=== PATIENT | female | born 1965 | race Caucasian/White ===

== ENCOUNTER 2019-04-21 22:03 | Inpatient (IN) | payer OTHER ==
[~2019-04-21] VITALS: Ht 162.6 cm; Wt 70.8 kg
--- OUTSIDE RECORDS SUMMARY | ~2019-04-21 | XMS | Encounter Summary ---
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 aches everywhere." Best pain is 7/10. Notes pain improvement with tizanidine, hydrocodone, gardening, being i n the sun and her heating pad. Pain is aggravated by taking the stairs, carrying things, etc. ROS: Please see scanned intake document. Detail reviewed face to face w/ patient. Relevant ROS detailed in HPI. Allergies: Patient has no known allergies. Current Medications: Current Outpatient Medications Medication Sig DULoxetine 60 mg oral capsule,delayed release(DR/EC) Take 60 mg by mouth two times isaías y. ELIDEL 1 % topical cream esomeprazole magnesium (NEXIUM ORAL) Take by mouth. gabapentin 300 mg oral capsule Take 300 mg by mouth once daily. HYDROcodone-acetaminophen 7.5-325 mg oral tablet levothyroxine 200 mcg oral tablet MELATONIN ORAL Take by mouth. tiZANidine 4 mg oral tablet VITAMIN D2 50,000 unit oral capsule No current facility-administered medications for this visit. Social History: Marzena reports that she has never smoked. She has never used smokeless tobacco. She report s that she drinks alcohol. Work History: [employer] part-time and "disabled." Medico-Legal: No pending litigation. Sleep History: Describes non-restorative sleep. "Very little and sporadic." Interrupted s leep d/t pain. Has never had a sleep study done. Current Exercise: Lunchtime walks. Past Medications and Treatments/ Response: NSAIDs- side effects Tramadol- no effect Duloxetine+ currently using 60mg BID Milnacipran- side effects TCA NA Pregabalin NA Gabapentin currently using 300mg 3x/d Muscle relaxants currently using tizanidine 5x/d Steroids NA Injections NA but did have unsuccessful ablation PT+/- Massage- too sensitive Manipulation NA contraindicated Acupuncture NA TENS unit+ Exercise+/- Pain psychology/ education NA Physical Examination: Vital Signs: BP 110/52 | Pulse 72 | Wt 61.2 kg (134 lb 14.7 oz) Pain Score: General: Pleasant, cooperative, no acute distress. Appropriate mood and affect. HEENT: No scleral icterus or conjunctival injection. No lacrimal or parotid enlargement. N o malar rashes. Mouth with moist mucous membranes. No oral ulcers. Neck: supple, no lymphadenopathy, FROM Lungs: clear to ausculation bilaterally CVS: S1S2, RRR, no murmurs, rubs or gallops Abd: normal BS, soft, NT, ND Extremities: No cyanosis, clubbing, or edema. No livedo reticularis, nail pitting, onychol ysis, periungual erythema, sclerodactyly, palmar telangiectasias or acrocyanosis. Skin: No rashes, nodules, ulcers. No apparent psoriasis. Neuro: Strength normal. Nl gait. Musculoskeletal: no synovitis; generalized tenderness; Pt tenderness to GTB Labs: Vitamin D 25-OH 10 ESR 7 Diagnosis: 1. Fibromyalgia 2. Non-restorative sleep 3. Vitamin D deficency 4. Greater trochanteric bursitis b/l Recommendations: 1. Ms. Romo suffers from moderate fibromyalgia pain and dysfunction. She was given verb al and written information on fibromyalgia at the time of evaluation. The web site www.myalg ia.com is also an excellent resource for patient information. The research to date is very c lear that fibromyalgia is a heterogeneous disorder that can only be consistently classified as mild, moderate or severe. Understanding that fibromyalgia with its array of symptoms is now thought to be the result of changes in the central nervous system a central sensitivit y syndrome. The chronic pain and associated symptoms may be the result of a final common pat hway seen in other processes such as irritable bowel syndrome, interstitial cystitis or endo metriosis. The theory is that with constant painful stimuli peripheral pain generators, th e neurotransmitters and other bioactive molecules in the brain and spinal cord change, resul ting in increased sensitivity to sensory input and less ability to tune out stimuli, it has been dubbed a central sensitivity syndrome . We impressed upon her that fibromyalgia i nterventions that are currently working may fail to work in the future, interventions that w ork for some do not work for people with fibromyalgia, and that there is no single treatment that will successfully alleviate her symptoms. Ideally, she needs a multimodal approach whi ch will include physical and occupational therapy, psychotherapy, and medications. Alternati ve therapies have worked for some, those most helpful have included acupuncture and massage. 2. Many patients with fibromyalgia additionally suffer from treatable sleep disorders. Imp roving sleep quality can greatly improve their overall pain burden. Given Ms. Romo long history of non-restorative sleep and daily issues with fatigue I recommend referral for phillip ysomnography evaluating for obstructive sleep apnea and well as upper airway resistance synd alfredo (UARS) which is common in patients with fibromyalgia and often goes undiagnosed. 3. Ms. Romo screening vitamin D level is insufficient. Low vitamin D level may contribu te to myalgia, arthralgia and fatigue. She needs vitamin D 50,000 units once a week for thr ee months and then please repeat the test for 25 (OH) vitamin D to see for any improvement. Patients often need once a month Vitamin D 50,000 units indefinitely to maintain normal lev els (more than 40 ng/ml). 4. Treating peripheral pain generators can positively impact the overall pain burden in pat ients with fibromyalgia. Ms. Romo has point tenderness to both greater trochanter bursa a nd symptoms consistent with bursitis. Therapeutic steroid injection could provide relief lo kathryn for 3 or more months. 5. For all patients living with fibromyalgia, counselling is strongly recommended, both for learning to manage life with chronic pain as well as her other stated life stressors. Cogn itive behavioral therapy (CBT) or acceptance and commitment therapy (ACT) have been shown to be effective for helping patients cope with chronic rosa and fatigue. 6. Other treatment modalities that could be considered include a trial of trigger point inj ections. Trigger point injections of the FM tender points with local anesthetic agents such as lidocaine or procaine are found to be useful in controlling the pain. Corticosteroids a re not used in trigger point injections. We suggest doing 3 to 4 TP injections at one sitti ng. Trigger point injections give symptomatic relief in pain, lasting for 3 weeks to 3 month s. 7. Fibromyalgia patients should participate in exercise program daily. We suggest starting slowly with stretching exercises. We also suggest yoga, water aerobics, deandre chi as good fo jaime of exercise. 8. I would be happy to see her again in the future if I can be of further assistance. [facility] Mailcode: [id number] [address] [id number] documented in t his encounter Plan of Treatment Not on filedocumented as of this encounter Visit Diagnoses + + | Diagnosis | + + | Fibromyalgia - Primary Mylagia and myositis, unspecified | + + | Non-restorative sleep Other sleep disturbances | + + | Vitamin D deficiency | + + | Trochanteric bursitis of both hips Enthesopathy of hip region | + + documented in this encounter
--- OUTSIDE RECORDS SUMMARY | ~2019-04-21 | XMS | Clinical Summary ---
Demographics + + + | Address | [address] | | | [place] [address] | + + + | Home Phone | | + + + | Preferred Language | Unknown | + + + | Marital Status | Single | + + + | Quaker Affiliation | Unknown | + + + | Race | White | + + + | Ethnic Group | or | + + + Author + + + | Author | [facility] | + + + | Organization | [facility] | + + + | Address | Unknown | + + + | Phone | Unavailable | + + + Support + + +---------+ + | Name | Relationship | Address | Phone | + + +---------+ + | Amari Ryan | ECON | Unknown | | + + +---------+ + Care Team Providers + +------+ + | Care Butcher Supervisor Name | Role | Phone | + +------+ + | No Pcp Per Patient | PCP | Unavailable | + +------+ + Source Comments [facility] is fully live on both [facility] and [facility] Allergies No Known Allergies Medications + + + +---------+------+------+-------+ | Medication | Sig | Dispensed | Refills | Star | End | Statu | | | | | | t | Date | s | | | | | | Date | | | + + + +---------+------+------+-------+ | | | | 0 | 05/0 | | Activ | | HYDROcodone-acetamin | | | | 4/20 | | e | | ophen 7.5-325 mg | | | | 19 | | | | oral tablet | | | | | | | + + + +---------+------+------+-------+ | gabapentin 300 mg | Take 300 mg by mouth | | 0 | 04/2 | | Activ | | oral capsule | once daily. | | | 6/20 | | e | | | | | | 19 | | | + + + +---------+------+------+-------+ | ELIDEL 1 % topical | | | 0 | 04/1 | | Activ | | cream | | | | 1/20 | | e | | | | | | 19 | | | + + + +---------+------+------+-------+ | tiZANidine 4 mg | | | 1 | 05/0 | | Activ | | oral tablet | | | | 3/20 | | e | | | | | | 19 | | | + + + +---------+------+------+-------+ | levothyroxine 200 | | | 99 | 05/0 | | Activ | | mcg oral tablet | | | | 3/20 | | e | | | | | | 19 | | | + + + +---------+------+------+-------+ | VITAMIN D2 50,000 | | | 2 | 05/0 | | Activ | | unit oral capsule | | | | 3/20 | | e | | | | | | 19 | | | + + + +---------+------+------+-------+ | esomeprazole | Take by mouth. | | 0 | | | Activ | | magnesium (NEXIUM | | | | | | e | | ORAL) | | | | | | | + + + +---------+------+------+-------+ | MELATONIN ORAL | Take by mouth. | | 0 | | | Activ | | | | | | | | e | + + + +---------+------+------+-------+ | DULoxetine 60 mg | Take 60 mg by mouth | | 0 | | | Activ | | oral capsule,delayed | two times daily. | | | | | e | | release(DR/EC) | | | | | | | + + + +---------+------+------+-------+ Active Problems Not on file Social History + +-------+ +--------+------+ | Tobacco [...] recent travel history available. | + + Last Filed Vital Signs + + + [...] | | + + + + + Plan of Treatment + + + + + | Health Maintenance | Due Date | Last Done | Comments | + + + + + | Influenza (Flu) | | 02/25/2011, 06/09/2009 | | | vaccination (#1) | 9 | | | + + + + + | Pneumococcal | Aged Out | | No longer eligible | | vaccination | | | based on patient's | | | | | age to complete this | | | | | topic | + + + + + Results Not on filefrom Last 3 Months Insurance + +--------+ +--------+ + +------+ | Payer | Benefi | Subscriber | Effect | Phone | Address | Type | | | t Plan | ID | ladonna | | | | | | / | | Dates | | | | | | Group | | | | | | + +--------+ +--------+ + +------+ | [employer] | [employer] | [phone] | | [phone] | [address] | PPO | | SHIELD | OUT OF | [phone] [address] | | | | STATE | | esent | | [place], | | | | | | | | [place] | | | | | | | | [phone] | | + +--------+ +--------+ + +------+ + +--------+ +--------+ + + | Guarantor Name | Accoun | Relation to | Date | Phone | Billing Address | | | t Type | Patient | of | | | | | | | | | | + +--------+ +--------+ + + | Marzena Romo | Person | Self [birth year] | [address] | | | al/[place] | | 1966 | [phone] | [place] | | | matias | | | [address] ([place]) | [phone] | + +--------+ +--------+ + +"
--- OUTSIDE RECORDS SUMMARY | ~2019-04-21 | XMS | Encounter Summary ---
Demographics + + + | Address | [address] | | | [place] [address] | + + + | Home Phone | | + + + | Preferred Language | Unknown | + + + | Marital Status | | + + + | Christian Affiliation | Unknown | + + + | Race | Unknown | + + + | Ethnic Group | Unknown | + + + Author + + + | Author | [facility] | | | and [place] | + + + | Organization | [facility] | | | and [place] | + + + | Address | Unknown | + + + | Phone | Unavailable | + + + Support + + +---------+ + | Name | Relationship | Address | Phone | + + +---------+ + | Amari Ryan | ECON | Unknown | | + + +---------+ + Care Team Providers + +------+ + | Care Stock Preparation Operator Name | Role | Phone | + +------+ + PCP | Unavailable | + +------+ + Encounter Details +--------+ + + + + | Date | Type | Department | Care Team | Description | +--------+ + + + + | 12/08/ | Hospital | [facility] | [place], | | | 2011 - | Encounter | [facility]ENTER | MD [address] | | | | | CLINICAL DECISION | [address] | | | 12/09/ | | [address] | [place] [address] | | | 2011 | | [place], [place] | [phone] | | | | | [address] | | | | | | [phone] | | | +--------+ + + + [...] + + documented as of this encounter Discharge Summaries Ag Abbasi MD - 12/20/2011 6:38 PM PDTFormatting of this note might be differe nt from the original. Discharge Summaries by Ag Abbasi MD at 12/20/111837 Author: Ag Abbasi MD Service: Hospitalist Author Type: Physician Filed: 12/20/111841 Date of Service: 12/20/111837 Status: Signed Hand Chain Maker: Ag Abbasi MD (Physician) The patient is a 46 y.o. female with significant past medical history of Thyroid disease, adrenal adenoma who presented with Chest pain Pt refers that her symptoms started yesterday night with chest pain, substernal , 03/21 , t hat appeared while she was sitting, radiated to both arms and jaw, accompained with flushing , but no SOB or sweating, nausea or vomiting, due to increase chest discomfort that did not resolved, she call the ambulance which provided ASA and Nitroglycerin SL with improvement of her pain, to the point that when she arrived to the hospital, [facility], she was esther n free. During hospitalization over there, her EKG was negative for acute ST changes , first set of cardiac enzymes negative, but second and third set came back mildly positive. Admitted to [facility] and patient had a cath done by Dr Yoo reported as: PROCEDURE Left heart catheterization, with left ventriculography, coronary angiography. INDICATIONS This is a 46-year-old female who presented to an [facility] with chest pain, EKG changes, and positive troponin, consistent with acute coronary syndrome. She subsequently transferred for further diagnostic evaluation. Alternatives were discussed with the patient. The risks, benefits, procedure alternatives were explained for cardiac catheterization and possible intervention. Informed consent had been signed. ENTRY METHOD Right femoral artery percutaneous. MEDICATIONS 1. Lidocaine local. 2. Versed 2 mg IV. 3. The patient was brought to the cardiac catheterization lab on a heparin drip that was discontinued. EQUIPMENT 1. A 6-Finnish arterial sheath. 2. A 5-Finnish pigtail catheter. 3. A 5-Finnish JL4 catheter. 4. A 5-Finnish 3DRC catheter. COMPLICATIONS None. DESCRIPTION OF PROCEDURE The right groin was prepped and draped in the usual fashion for a percutaneous approach. A 6-Finnish arterial sheath was placed in the right femoral artery without difficulty. A 5-Finnish pigtail catheter was then advanced to the ascending aorta under fluoroscopic guidance. Initial aortic pressures were obtained. This catheter was then advanced across the aortic valve under fluoroscopic guidance. Left ventricular pressures were obtained. A single-plane, 30-degree FROST ventriculogram was performed. Pullback pressures were obtained. This catheter was then exchanged for a 5-Finnish JL4 catheter. This catheter was then advanced to the left coronary ostium under fluoroscopic guidance. Selective coronary arteriography was performed in multiple views. This catheter was then exchanged for a 5-Finnish 3DRC catheter. This catheter was then advanced to the right coronary ostium under fluoroscopic guidance. Selective coronary arteriography was performed in multiple views. Catheter and sheaths were removed. Groin hemostasis was achieved. The patient tolerated the procedure without apparent complications and left the cardiac catheterization laboratory in stable condition. ESTIMATED BLOOD LOSS Less than 50 mL. RESULTS HEMODYNAMICS 1. The patient was in normal sinus rhythm during the study. 2. Aortic pressure 137/92, mean of 103. 3. Left ventricular systolic 141. 4. Left ventricular end-diastolic on direct inspection appeared to be in the range of 16 to 20. 5. No significant gradient on pullback from left ventricle. FLUOROSCOPY Fluoroscopy is negative for significant calcification of the cardiac structures. LEFT VENTRICULOGRAPHY 1. Left ventricle is normal in size. 2. There is no significant mitral regurgitation. 3. Left ventricular wall motion is normal. 4. Estimated ejection fraction at rest is 60% to 70%. There are no segmental wall motion abnormalities compatible with ischemia. CORONARY ANGIOGRAPHY 1. The left main is overall normal in size and shape without significant stenosis. 2. The LAD is initially a moderate-caliber vessel but becomes very small caliber distally. The LAD and diagonal branches are without evidence of flow limiting stenosis but again the vessel does become very small distally. 3. The circumflex is a moderate-caliber codominant vessel providing some left ventricular inferior branches. The circumflex/obtuse marginal branches and left ventricular inferior branches are without flow limiting stenosis. 4. The right coronary artery is of moderate caliber, codominant vessel some left ventricular inferior branches. The right coronary artery and left ventricular inferior branches are without flow limiting stenosis. ESTIMATED BLOOD LOSS Less than 50 mL. ASSESSMENT Chest pain and elevated troponin consistent with acute coronary syndrome. PLAN/DISCUSSION/RECOMMENDATIONS The patient could have had a component of coronary spasm. She also does have very small distal left, so she could have a component of microvascular angina as her symptoms were relieved with nitroglycerin. For now, we will change the beta pernell to diltiazem in the event that some of this was related to coronary spasms. She does have a history of anemia. For now I think the addition of an antiplatelet agent such as Ecotrin 81 mg daily is appropriate particularly in light of her anemia. Monitoring the CBC in the future for now. I believe the patient is appropriate for medical management. Overnight the patient wanted to leave AMA. I explained to her the possible risks of serious events including , but she still wanted to leave AMA. She signed the AMA papers and le ft. This is a note for the date: 12/10/11 documente d in this encounter Progress Notes Conversion Transaction, Provider Unknown - 12/10/2011 1:08 AM PDTFormatting of this note m ight be different from the original. Progress Notes by Suyapa Palma RN at 12/10/11 0108 Author: Suyapa Palma RN Service: (none) Author Type: Registered Nurse Filed: 12/10/11109 Date of Service: 12/10/11107 Status: Signed Hand Chain Maker: Suyapa Palma RN (Registered Nurse) Pt requested to leave hospital AMA. Dr Luong at bedside discussed risks to patient. Majo ent stated understanding and signed release. Belongings with patient. Patient leaving hospit al in private vehicle. Suyapa Palma RN 12/10/2011 1:10 AM Argelia Suero RPH - 12/09/2011 2:30 PM PDTFormatting of this note might be different from the chetna gitorrey. Progress Notes by Argelia Rivera RPH at 12/09/11 1430 Author: Argelia Rivera RPH Service: (none) Author Type: Pharmacist Filed: 12/09/111429 Date of Service: 12/09/111429 Status: Signed Hand Chain Maker: Argelia Rivera RPH (Pharmacist) Renal Dosing Monitoring: Marzenakelly Romo 46 y.o. female Pharmacy dosing for renal function per Dr. Day Medication(s): none at this time Plan per protocol: No height, weight or Scr at this time. Pharmacy will continue monitoring patient for appropriate dosing per renal function. 12/09/2011 2:28 PM Pharmacist: ARGELIA RIVERA Pharm D documente d in this encounter Plan of Treatment Not on filedocumented as of this encounter Procedures + +--------+ + + + | Procedure Name | Priori | Date/Time | Associated Diagnosis | Comments | | | ty | | | | + +--------+ + + + | CV CARDIAC PROCEDURE | Routin | 12/09/2011 | | Results for this | | | e | 4:30 PM | | procedure are in the | | | | PDT | | results section. | + +--------+ + + + documented in this encounter Results CV CARDIAC PROCEDURE (12/09/2011 4:30 PM PDT) + + | Specimen | + + | | + + + + + | Narrative | Performed At | + + + | | | | | | | PROCEDURE Left heart catheterization, with left ventriculography, | | | coronary angiography. INDICATIONS This is a 46-year-old female | | | who presented to an [facility] with chest pain, EKG changes, | | | and positive troponin, consistent with acute coronary syndrome. She | | | subsequently transferred for further diagnostic evaluation. | | | Alternatives were discussed with the patient. The risks, benefits, | | | procedure alternatives were explained for cardiac catheterization and | | | possible intervention. Informed consent had been signed. ENTRY | | | METHOD Right femoral artery percutaneous. MEDICATIONS 1. | | | Lidocaine local. 2. Versed 2 mg IV. 3. The patient was brought to | | | the cardiac catheterization lab on a heparin drip that was | | | discontinued. EQUIPMENT 1. A 6-Finnish arterial sheath. 2. A | | | 5-Finnish pigtail catheter. 3. A 5-Finnish JL4 catheter. 4. A 5-Finnish | | | 3DRC catheter. COMPLICATIONS None. DESCRIPTION OF PROCEDURE | | | The right groin was prepped and draped in the usual fashion for a | | | percutaneous approach. A 6-Finnish arterial sheath was placed in the | | | right femoral artery without difficulty. A 5-Finnish pigtail catheter | | | was then advanced to the ascending aorta under fluoroscopic guidance. | | | Initial aortic pressures were obtained. This catheter was then | | | advanced across the aortic valve under fluoroscopic guidance. Left | | | ventricular pressures were obtained. A single-plane, 30-degree FROST | | | ventriculogram was performed. Pullback pressures were obtained. This | | | catheter was then exchanged for a 5-Finnish JL4 catheter. This | | | catheter was then advanced to the left coronary ostium under | | | fluoroscopic guidance. Selective coronary arteriography was performed | | | in multiple views. This catheter was then exchanged for a 5-Finnish | | | 3DRC catheter. This catheter was then advanced to the right coronary | | | ostium under fluoroscopic guidance. Selective coronary arteriography | | | was performed in multiple views. Catheter and sheaths were removed. | | | Groin hemostasis was achieved. The patient tolerated the procedure | | | without apparent complications and left the cardiac catheterization | | | laboratory in stable condition. ESTIMATED BLOOD LOSS Less than 50 | | | mL. RESULTS HEMODYNAMICS 1. The patient was in normal sinus | | | rhythm during the study. 2. Aortic pressure 137/92, mean of 103. 3. | | | Left ventricular systolic 141. 4. Left ventricular end-diastolic on | | | direct inspection appeared to be in the range of 16 to 20. 5. No | | | significant gradient on pullback from left ventricle. FLUOROSCOPY | | | Fluoroscopy is negative for significant calcification of the cardiac | | | structures. LEFT VENTRICULOGRAPHY 1. Left ventricle is normal | | | in size. 2. There is no significant mitral regurgitation. 3. | | | Left ventricular wall motion is normal. 4. Estimated ejection | | | fraction at rest is 60% to 70%. There are no segmental wall | | | motion abnormalities compatible with ischemia. CORONARY | | | ANGIOGRAPHY 1. The left main is overall normal in size and shape | | | without significant stenosis. 2. The LAD is initially a | | | moderate-caliber vessel but becomes very small caliber | | | distally. The LAD and diagonal branches are without evidence of | | | flow limiting stenosis but again the vessel does become very small | | | distally. 3. The circumflex is a moderate-caliber codominant | | | vessel providing some left ventricular inferior branches. The | | | circumflex/obtuse marginal branches and left ventricular | | | inferior branches are without flow limiting stenosis. 4. The | | | right coronary artery is of moderate caliber, codominant vessel | | | some left ventricular inferior branches. The right coronary artery | | | and left ventricular inferior branches are without flow | | | limiting stenosis. ESTIMATED BLOOD LOSS Less than 50 mL. | | | ASSESSMENT Chest pain and elevated troponin consistent with acute | | | coronary syndrome. PLAN/DISCUSSION/RECOMMENDATIONS The patient | | | could have had a component of coronary spasm. She also does have very | | | small distal left, so she could have a component of microvascular | | | angina as her symptoms were relieved with nitroglycerin. For now, we | | | will change the beta pernell to diltiazem in the event that some of | | | this was related to coronary spasms. She does have a history of | | | anemia. For now I think the addition of an antiplatelet agent such as | | | Ecotrin 81 mg daily is appropriate particularly in light of her | | | anemia. Monitoring the CBC in the future for now. I believe the | | | patient is appropriate for medical management. Read by | | | CAREN YOO MD 12/09/2011 04:36 P | | + + + + + | Procedure Note | + + | Yemi Wilson Conversion - 02/02/2019 3:31 AM PDT | | | | PROCEDURE | | Left heart catheterization, with left ventriculography, coronary | | angiography. | | | | INDICATIONS | | This is a 46-year-old female who presented to an [facility] with | | chest pain, EKG changes, and positive troponin, consistent with acute | | coronary syndrome. She subsequently transferred for further diagnostic | | evaluation. Alternatives were discussed with the patient. The risks, | | benefits, procedure alternatives were explained for cardiac | | catheterization and possible intervention. Informed consent had been | | signed. | | | | ENTRY METHOD | | Right femoral artery percutaneous. | | | | MEDICATIONS | | 1. Lidocaine local. | | 2. Versed 2 mg IV. | | 3. The patient was brought to the cardiac catheterization lab on a heparin | | drip that was discontinued. | | | | EQUIPMENT | | 1. A 6-Finnish arterial sheath. | | 2. A 5-Finnish pigtail catheter. | | 3. A 5-Finnish JL4 catheter. | | 4. A 5-Finnish 3DRC catheter. | | | | COMPLICATIONS | | None. | | | | DESCRIPTION OF PROCEDURE | | The right groin was prepped and draped in the usual fashion for a | | percutaneous approach. A 6-Finnish arterial sheath was placed in the right | | femoral artery without difficulty. A 5-Finnish pigtail catheter was then | | advanced to the ascending aorta under fluoroscopic guidance. Initial | | aortic pressures were obtained. This catheter was then advanced across the | | aortic valve under fluoroscopic guidance. Left ventricular pressures were | | obtained. A single-plane, 30-degree FROST ventriculogram was performed. | | Pullback pressures were obtained. This catheter was then exchanged for a | | 5-Finnish JL4 catheter. This catheter was then advanced to the left | | coronary ostium under fluoroscopic guidance. Selective coronary | | arteriography was performed in multiple views. This catheter was then | | exchanged for a 5-Finnish 3DRC catheter. This catheter was then advanced to | | the right coronary ostium under fluoroscopic guidance. Selective coronary | | arteriography was performed in multiple views. Catheter and sheaths were | | removed. Groin hemostasis was achieved. The patient tolerated the | | procedure without apparent complications and left the cardiac | | catheterization laboratory in stable condition. | | | | ESTIMATED BLOOD LOSS | | Less than 50 mL. | | | | RESULTS | | HEMODYNAMICS | | 1. The patient was in normal sinus rhythm during the study. | | 2. Aortic pressure 137/92, mean of 103. | | 3. Left ventricular systolic 141. | | 4. Left ventricular end-diastolic on direct inspection appeared to be in | | the range of 16 to 20. | | 5. No significant gradient on pullback from left ventricle. | | | | FLUOROSCOPY | | Fluoroscopy is negative for significant calcification of the cardiac | | structures. | | | | LEFT VENTRICULOGRAPHY | | 1. Left ventricle is normal in size. | | 2. There is no significant mitral regurgitation. | | 3. Left ventricular wall motion is normal. | | 4. Estimated ejection fraction at rest is 60% to 70%. There are no | | segmental wall motion abnormalities compatible with ischemia. | | | | CORONARY ANGIOGRAPHY | | 1. The left main is overall normal in size and shape without significant | | stenosis. | | 2. The LAD is initially a moderate-caliber vessel but becomes very small | | caliber distally. The LAD and diagonal branches are without evidence | | of flow limiting stenosis but again the vessel does become very small | | distally. | | 3. The circumflex is a moderate-caliber codominant vessel providing some | | left ventricular inferior branches. The circumflex/obtuse marginal | | branches and left ventricular inferior branches are without flow | | limiting stenosis. | | 4. The right coronary artery is of moderate caliber, codominant vessel | | some left ventricular inferior branches. The right coronary artery and | | left ventricular inferior branches are without flow limiting | | stenosis. | | | | ESTIMATED BLOOD LOSS | | Less than 50 mL. | | | | ASSESSMENT | | Chest pain and elevated troponin consistent with acute coronary syndrome. | | | | PLAN/DISCUSSION/RECOMMENDATIONS | | The patient could have had a component of coronary spasm. She also does | | have very small distal left, so she could have a component of | | microvascular angina as her symptoms were relieved with nitroglycerin. For | | now, we will change the beta pernell to diltiazem in the event that some | | of this was related to coronary spasms. She does have a history of anemia. | | For now I think the addition of an antiplatelet agent such as Ecotrin 81 | | mg daily is appropriate particularly in light of her anemia. Monitoring | | the CBC in the future for now. I believe the patient is appropriate for | | medical management. | | | | | | | | | | Read by CAREN YOO MD 12/09/2011 04:36 P | | | | | + + documented in this encounter Visit Diagnoses Not on filedocumented in this encounter"
--- OUTSIDE RECORDS SUMMARY | ~2019-04-21 | XMS | Encounter Summary ---
Demographics + + + | Address | [address] | | | [place] [address] | + + + | Home Phone | | + + + | Preferred Language | Unknown | + + + | Marital Status | Single | + + + | Jainism Affiliation | Unknown | + + + | Race | White | + + + | Ethnic Group | or | + + + Author + + + | Organization | Unknown | + + + | Address | Unknown | + + + | Phone | Unavailable | + + + Support + + +---------+ + | Name | Relationship | Address | Phone | + + +---------+ + | Amari Ryan | ECON | Unknown | | + + +---------+ + Care Team Providers + +------+ + | Care Pottery Kiln Builder Name | Role | Phone | + +------+ + PCP | Unavailable | + +------+ + Encounter Details +--------+ + + + + | Date | Type | Department | Care Team | Description | +--------+ + + + + | 04/01/ | Office | | Note, Outpatient | Progress Note | | 2001 | Visit-Trans | | Clinic | | | | cribed | | | | +--------+ + + + [...] + + documented as of this encounter Progress Notes Interface, Wallpaper Printer In - 01/19/2006 1:02 AM PDTCLINIC DATE: 04/01/2002 [facility] SUBJECTIVE: Mrs. Romo is a 36-year-old woman who comes to clinic inquiring about bariatric procedure. She is 5 feet 4 inches tall and weighs 350 pounds which gives her a BMI of 61. She has been obese since she was 10 years old and went on her first diet at age 13. She has tried numerous diets which have produced small temporary weight losses. 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 She is hypothyroid. She is not aware that she has sleep apnea. PAST MEDICAL HISTORY: See HPI. PRIOR OPERATIONS: Hernia repair 1-1/2 years ago. MEDICATIONS: Fluoxetine 20 mg a day, this is a Paxil-like drug; metformin 500 mg twice a day; spironolactone 25 mg a day; and Levoxyl 0.125 mg a day. DRUG ALLERGIES: None. 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 This is mainly a sitting desk-work job with a little bit of walking. She does not drink or smoke. She has 1 child aged 10 and is a single mother. PHYSICAL EXAMINATION VITAL SIGNS: Her blood pressure is 132/80, pulse is 84 and regular, and she is afebrile. HEENT: Normal. NECK: Supple without adenopathy. LUNGS: Clear to auscultation. HEART: Normal sinus rhythm. No murmurs. EXTREMITIES: Edema 1+ to the mid valencia. Peripheral pulses are good. IMPRESSION: This 36-year-old woman is in the super obese range, has a comorbidity of diabetes, and is an excellent candidate for bariatric procedure to prevent future morbidity from obesity. I will attempt to get insurance authorization for her surgery. Nemesio Lake M.D. CD / HS [id number] / [id number] / [id number] / [id number] Tdocumented in this encounter Plan of Treatment Not on filedocumented as of this encounter Visit Diagnoses Not on filedocumented in this encounter"
--- OUTSIDE RECORDS SUMMARY | ~2019-04-21 | XMS | Encounter Summary ---
Demographics + + + | Address | [address] | | | [place] [address] | + + + | Home Phone | | + + + | Preferred Language | Unknown | + + + | Marital Status | Single | + + + | Judaism Affiliation | Unknown | + + + | Race | White | + + + | Ethnic Group | or | + + + Author + + + | Author | [facility] | + + + | Organization | [facility] | + + + | Address | Unknown | + + + | Phone | Unavailable | + + + Support + + +---------+ + | Name | Relationship | Address | Phone | + + +---------+ + | Amari Ryan | ECON | Unknown | | + + +---------+ + Care Team Providers + +------+ + | Care Licensed Home Inspector Name | Role | Phone | + +------+ + | No Pcp Per Patient | PCP | Unavailable | + +------+ + Encounter Details +--------+ + + + + | Date | Type | Department | Care Team | Description | +--------+ + + + + | 11/14/ | Ancillary | Registration [id number] | | | | 2006 | [address] | [address] | | | | [address] | [address] Mailcode: [id number] | | | | | | [place], [place] | | | | | | [address] | | | | | | [phone] | | | +--------+ + + + [...]
--- OUTSIDE RECORDS SUMMARY | ~2019-04-21 | XMS | Encounter Summary ---
Demographics + + + | Address | [address] | | | [place] [address] | + + + | Home Phone | | + + + | Preferred Language | Unknown | + + + | Marital Status | Single | + + + | Nondenominational Affiliation | Unknown | + + + | Race | White | + + + | Ethnic Group | or | + + + Author + + + | Author | [facility] | + + + | Organization | [facility] | + + + | Address | Unknown | + + + | Phone | Unavailable | + + + Support + + +---------+ + | Name | Relationship | Address | Phone | + + +---------+ + | Amari Ryan | ECON | Unknown | | + + +---------+ + Care Team Providers + +------+ + | Care Principal Clerk Name | Role | Phone | + [...] | | Therapy | | [place], | [address] | | | | | Fibromyalgia | Steph Claros, | [place] | | | | | Procedures | [address] | Mailcode: | | | | | | [address] | [facility] | | | | | OCCUPATIONAL | Valentina Figueroa | for Health | | | | | THERAPY | [facility] [place] | and Healing, | | | | | REFERRAL | [address] | [address], | | | | | | Phone: | [address] | | | | | | [phone] | [facility] [place] | | | | | | Fax: | [address] | | | | | | [phone] | Phone: | | | | | | | [phone] | | | | | | | Fax: | | | | | | | [phone] | + +--------+ + + + + [...] | | | | | Procedures | [address] | Mailcode: | | | | | PHYSICAL | Sylvester Sanchez | [facility] | | | | | THERAPY | Valentina Figueroa | for Health | | | | | REFERRAL | [place], [place] | and Healing, | | | | | | [address] | [address], | | | | | | Phone: | [address] | | | | | | [phone] | [place], [place] | | | | | | Fax: | [address] | | | | | | [phone] | Phone: | | | | | | | [phone] | | | | | | | Fax: | | | | | | | [phone] | + +--------+ + + + + [...] | | | | | | [place] [address] | Pavilion | | | | | | Phone: | [place], [place] | | | | | | [phone] | [address] | | | | | | Fax: | Phone: | | | | | | [phone] | [phone] | | | | | | | Fax: | | | | | | | [phone] | + +--------+ + + + + Encounter Details +--------+---------+ + + + | Date | Type | Department | Care Team | Description | +--------+---------+ + + + | 10/24/ | Office | Rheumatology at | Clinic, [facility] | Fibromyalgia | | 2019 | Visit | Physicians Nereyda | Fibromyalgia [address] | (Primary Dx); | | | | [address] | [address] | Non-restorative | | | | Valentina Figueroa Mailcode: | Road [place], [place] | sleep; Vitamin D | | | | [address] [facility]ician's | [address] | deficiency; | | | | [facility] [place], | | Trochanteric | | | | [place] [address] | | bursitis of both | | | | [phone] | | hips | +--------+---------+ + + [...] encounter Patient Instructions Patient Instructions Steph Gallo, [facility] SPRAYER - 10/24/2018 1:30 PM PDT 1. TENS [...] are, in fact, subjective... Website's: Www.myalgia.com Www.myalgiateam.com [email or web address] Program features 10 modules: Understanding Fibromyalgia Being Active Sleep Relaxation Time for You Setting Goals Pacing Yourself (Task Player Radha) Thinking Differently Communicating Fibro Fog Www.lumosity.com Brain games and brain training Coaching: [email or web address]://[email or web address].com/ On-line exercise program recommendations (Youtube): Warm up Exercise for Fibromyalgia [facility] for Fibromyalgia Restorative Chair Yoga for Chronic Pain Sleepy Santosha Fibromyalgia Pain Relief Stretching Program: Gentle but Effective physicaltherapyvideo 3 mins Qi Gong Exercise Workout Routine for Fibromyalgia Pain Relief - Qi Gong [employer]ong[employer] - Qi[employer]ong [employer] Qigong for Seniors - Sitting Version relaxedandalert Local support groups: [facility] Fibromyalgia,Chronic Pain, Chronic Fatigue Support Group Address: Meets At [facility], [address] [place] [address] Books: "Fibromyalgia: Woman's Tool Kit" by Donna Monique and Eduardo Darling. "Take Back Your Life: Find Hope And [place] From Fibromyalgia Symptoms And Pain" by Bambi Russellbonnerdale. "The FibroManual: A Complete Fibromyalgia Treatment Guide [...] explain the pain and other symptoms Source: [place] [employer], 2010 How is fibromyalgia [...] over activity of nerve cells involved in esther n transmission. These medicines may cause dizziness, [...] use of an opioid narcotic is needed. Ulhp-cah-jgibbqg medicines such as acetaminophen (Tylenol) or nonsteroidal [...] caused you r illness. Additional Information The [place] [employer] has compiled this list to give you a starting point fo r your own additional research. The ACR does not endorse or maintain these websites and is n ot responsible for any information or claims provided on them. It is always best to talk wit h your concert singer for more information and before making any decisions about your care. National [place] of Arthritis and Musculoskeletal and Skin Diseases National Fibromyalgia Association National Fibromyalgia and Chronic Pain Association National Fibromyalgia Partnership, Inc. The [place] Fibromyalgia Syndrome Association, Inc. Trochanteric Bursitis: Exercises [...] 4. Repeat 2 to 4 times. Double ymdw-xo-lxltd 1. Lie on your back with your [...] about "Trochanteric Bursitis: Exercises", log into your Ember account at [email or web address]. You can enter N503 in the "[employer] Library" search box. Not on Ember? Review the Ember section of your After Visit Summary for directions on ho w to sign up. Current as of: March 01, 2018 Content Version: 11.9 [id number] Spreaker. Care instructions adapted under license by [facility] [place]. If you have questions about a medical condition or this instr uction, always ask your healthcare professional. [employer]aker disclaims any stefanie anty or liability for your use of this information. documented in this encounter Progress Notes Steph Gallo FNP - 10/24/2018 1:30 PM PDTFormatting of this note might be differe nt from the original. . New Fibromyalgia Patient Consult: This patient was referred by: Anil James MD [facility] [address] [place] [address], . Your patient, Ms. Romo, a 52 y.o. female, was evaluated in the [facility] on October 23, 2018. This evaluation consisted of a fibromyalgia focused history and limited ph ysical examination, psychosocial assessment with focus on education and counselling regardin g diagnosis, treatment options, self-care measures, expectations and prognosis. Travelling from [place], [place] History of Current Problem: Ms. Romo [...] s that she drinks alcohol. Work History: [employer] part-time and "disabled." Medico-Legal: No pending [...] of further assistance. [facility]EN [facility]ATOLOG[facility] Mailcode: Op09 [address] [address] documented in t his encounter Plan of [...]
--- OUTSIDE RECORDS SUMMARY | ~2019-04-21 | XMS | Encounter Summary ---
Demographics + + + | Address | [address] | | | [place] [address] | + + + | Home Phone | | + + + | Preferred Language | Unknown | + + + | Marital Status | | + + + | Catholic Affiliation | Unknown | + + + | Race | Unknown | + + + | Ethnic Group | Unknown | + + + Author + + + | Author | [facility] | | | and [place] | + + + | Organization | [facility] | | | and Freddieana | [...] Team Providers + +------+ + | Care Circus Agent Name | Role | Phone | + +------+ + PCP | Unavailable | + +------+ + Encounter Details +--------+ + + + + | Date | Type | Department | Care Team | Description | +--------+ + + + + | 12/08/ | Hospital | [facility] | Shay, | | | 2011 - | Encounter | MEDICAL CENTER | MD Daryl [address] | | | | | CLINICAL DECISION | [address] | | | 12/09/ | | [address] | [place] [address] | | | 2011 | | [place], [place] | [phone] | | | | | [address] | | | | | | [phone] | | | +--------+ + + + [...] 12/20/111841 Date of Service: 12/20/111837 Status: Signed Distillery Worker General: Ag Abbasi MD (Physician) The patient is [...] that when she arrived to the hospital, [facility], she was esther n free. During hospitalization over there, her EKG was negative for acute ST changes , first set of cardiac enzymes negative, but second and third set came back mildly positive. Admitted to [facility] and patient had a cath done by Dr Yoo reported as: PROCEDURE Left heart catheterization, with left ventriculography, coronary angiography. INDICATIONS This is a 46-year-old female who presented to an [facility] hospital with chest pain, EKG changes, and [...] drip that was discontinued. EQUIPMENT 1. A 6-Irish arterial sheath. 2. A 5-Irish pigtail catheter. 3. A 5-Irish JL4 catheter. 4. A 5-Irish 3DRC catheter. COMPLICATIONS None. DESCRIPTION OF PROCEDURE The right groin was prepped and draped in the usual fashion for a percutaneous approach. A 6-Irish arterial sheath was placed in the right femoral artery without difficulty. A 5-Irish pigtail catheter was then advanced to the ascending aorta under fluoroscopic guidance. Initial aortic pressures were obtained. This catheter was then advanced across the aortic valve under fluoroscopic guidance. Left ventricular pressures were obtained. A single-plane, 30-degree FROST ventriculogram was performed. Pullback pressures were obtained. This catheter was then exchanged for a 5-Irish JL4 catheter. This catheter was then advanced to the left coronary ostium under fluoroscopic guidance. Selective coronary arteriography was performed in multiple views. This catheter was then exchanged for a 5-Irish 3DRC catheter. This catheter was then advanced [...] 12/10/11109 Date of Service: 12/10/11107 Status: Signed Distillery Worker General: Suyapa Palma RN (Registered Nurse) Pt requested [...] 12/09/111429 Date of Service: 12/09/111429 Status: Signed Distillery Worker General: Argelia Rivera RPH (Pharmacist) Renal Dosing Monitoring: Marzenakelly Room 46 y.o. female Pharmacy dosing for renal [...] | | | who presented to an [facility] hospital with chest pain, EKG changes, | [...] | | | discontinued. EQUIPMENT 1. A 6-Irish arterial sheath. 2. A | | | 5-Irish pigtail catheter. 3. A 5-Irish JL4 catheter. 4. A 5-Irish | | | 3DRC catheter. COMPLICATIONS None. DESCRIPTION OF PROCEDURE | | | The right groin was prepped and draped in the usual fashion for a | | | percutaneous approach. A 6-Irish arterial sheath was placed in the | | | right femoral artery without difficulty. A 5-Irish pigtail catheter | | | was then [...] | catheter was then exchanged for a 5-Irish JL4 catheter. This | | | catheter was then advanced to the left coronary ostium under | | | fluoroscopic guidance. Selective coronary arteriography was performed | | | in multiple views. This catheter was then exchanged for a 5-Irish | | | 3DRC catheter. This catheter [...] a 46-year-old female who presented [facility] with | | chest pain, EKG changes, [...] | | EQUIPMENT | | 1. A 6-Irish arterial sheath. | | 2. A 5-Irish pigtail catheter. | | 3. A 5-Irish JL4 catheter. | | 4. A 5-Irish 3DRC catheter. | | | | COMPLICATIONS | | None. | | | | DESCRIPTION OF PROCEDURE | | The right groin was prepped and draped in the usual fashion for a | | percutaneous approach. A 6-Irish arterial sheath was placed in the right | | femoral artery without difficulty. A 5-Irish pigtail catheter was then | | advanced [...] was then exchanged for a | | 5-Irish JL4 catheter. This catheter was then advanced to the left | | coronary ostium under fluoroscopic guidance. Selective coronary | | arteriography was performed in multiple views. This catheter was then | | exchanged for a 5-Irish 3DRC catheter. This catheter was then advanced [...]
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
--- OUTSIDE RECORDS SUMMARY | ~2019-04-21 | XMS | Encounter Summary ---
Demographics + + + | Address | [address] | | | [place] [address] | + + + | Home Phone | | + + + | Preferred Language | Unknown | + + + | Marital Status | | + + + | Quaker Affiliation | Unknown | + + + | Race | Unknown | + + + | Ethnic Group | Unknown | + + + Author + + + | Author | [facility] | | | and [place] | + + + | Organization | [facility] | | | and [place] | [...] Team Providers + +------+ + | Care Manager Global Communications Name | Role | Phone | + +------+ + PCP | Unavailable | + +------+ + Encounter Details +--------+ + + + + | Date | Type | Department | Care Team | Description | +--------+ + + + + | 12/25/ | Hospital | [facility] | | | | 2000 | Encounter | MED CTR XRAY [address] | | | | | | [address] [place] | | | | | | [place] [address] | | | | | | [phone] | | | +--------+ + + + [...]
--- OUTSIDE RECORDS SUMMARY | ~2019-04-21 | XMS | Clinical Summary ---
Demographics + + + | Address | [address] | | | [place] [address] | + + + | Home Phone | | + + + | Preferred Language | Unknown | + + + | Marital Status | Single | + + + | Scientology Affiliation | Unknown | + + + | Race | Unknown | + + + | Ethnic Group | Unknown | + + + Author + + + | Author | [facility] (Historical as of | | | 01-26-19) | + + + | Organization | [facility] (Historical as of | | | 01-26-19) | + + + | Address | Unknown | + + + | Phone | Unavailable | + + + Support + + +---------+ + | Name | Relationship | Address | Phone | + + +---------+ + | Contact,No | ECON | Unknown | | + + +---------+ + Care Team Providers + +------+ + | Care Bone Drier Name | Role | Phone | + +------+ + | Dr. Gianni | PP | Unavailable | + +------+ + Allergies No Known Allergies Current Medications + + +-------+---------+------+------+-------+ | Prescription | Sig. | Disp. | Refills | Star | End | Statu | | | | | | t | Date | s | | | | | | Date | | | + + +-------+---------+------+------+-------+ | | Take 1 tablet by | | | | | Activ | | hydrocodone-acetamin | mouth 2 (two) times | | | | | e | | ophen (LORTAB) | daily as needed. | | | | | | | 7.5-500 MG per | | | | | | | | tablet | | | | | | | + + +-------+---------+------+------+-------+ | lansoprazole | Take 30 mg by mouth | | | | | Activ | | (PREVACID) 30 MG | every morning. | | | | | e | | capsule | | | | | | | + + +-------+---------+------+------+-------+ | methocarbamol | Take 750 mg by mouth | | | | | Activ | | (ROBAXIN) 750 MG | 4 (four) times | | | | | e | | tablet | daily. | | | | | | + + +-------+---------+------+------+-------+ | levothyroxine | Take 175 mcg by | | | | | Activ | | (SYNTHROID, | mouth daily. | | | | | e | | LEVOTHROID) 175 MCG | | | | | | | | tablet | | | | | | | + + +-------+---------+------+------+-------+ | Cholecalciferol | Take 1,000 Units by | | | | | Activ | | (VITAMIN D) 1000 | mouth 3 (three) | | | | | e | | UNITS capsule | times a week. | | | | | | + + +-------+---------+------+------+-------+ Active Problems + + + | Problem | Noted Date | + + + | Chest pain, unspecified | 12/09/2011 | + + + | Troponin level elevated | 12/09/2011 | + + + | Unspecified hypothyroidism | 12/09/2011 | + + + Family History + + +------+ + | Medical History | Relation | Name | Comments | + + +------+ + | Diabetes type II | Father | | | + + +------+ + | Rheum arthritis | Father | | | + + +------+ + | Rheum arthritis | Mother | | | + + +------+ + | Heart disease | Paternal | | | | | Grandfath | | | | | er | | | + + +------+ + | Heart disease | Paternal | | | | | Grandmoth | | | | | er | | | + + +------+ + | Mult sclerosis | Sister | | | + + +------+ + | Rheum arthritis | Sister | | | + + +------+ + + +------+--------+ + | Relation | Name | Status | Comments | + +------+--------+ + | Father | | | | + +------+--------+ + | Mother | | | | + +------+--------+ + | Paternal Grandfather | | | | + +------+--------+ + | Paternal Grandmother | | | | + +------+--------+ + | Sister | | | | + +------+--------+ + Social History + +-------+ +--------+------+ | Tobacco Use | Types | Packs/Day | Years | Date | | | | | Used | | + +-------+ +--------+------+ | Never Smoker | | | | | + +-------+ +--------+------+ + + +---------+ + | Alcohol Use | Drinks/We | oz/Week | Comments | | | ek | | | + + +---------+ + | Yes | 2 Cans | 1.2 | 2 beers a week | | | of beer | | | + + +---------+ + + + + | Sex Assigned at | Date Recorded | | | | + + + | Not on file | | + + + Last Filed Vital Signs + + + + | Vital Sign | Reading | Time Taken | + + + + | Blood Pressure | 152/61 | 12/09/2011 11:45 PM PDT | + + + + | Pulse | 73 | 12/09/2011 11:45 PM PDT | + + + + | Temperature | 36.7 C (98 F) | 12/09/2011 11:45 PM PDT | + + + + | Respiratory Rate | 18 | 12/09/2011 11:45 PM PDT | + + + + | Oxygen Saturation | 100% | 12/09/2011 11:45 PM PDT | + + + + | Inhaled Oxygen | - | - | | Concentration | | | + + + + | Weight | 57.8 kg (127 lb 6.8 | 12/09/2011 2:24 PM PDT | | | oz) | | + + + + | Height | 165.1 cm (5' 5") | 12/09/2011 2:24 PM PDT | + + + + | Body Mass Index | 21.2 | 12/09/2011 2:24 PM PDT | + + + + Plan of Treatment Not on file Results Not on filefrom Last 3 Months Insurance +---------+--------+ +------+-------+ + | Payer | Benefi | Subscriber | Type | Phone | Address | | | t Plan | ID | | | | | | / | | | | | | | Group | | | | | +---------+--------+ +------+-------+ + | PREMERA | PREMER | [id number] | | | [address] [address] | | | A BLUE | [address] | | | [place] | | | CARD | | | | [phone] | +---------+--------+ +------+-------+ + + +--------+ +--------+ + + | Guarantor Name | Accoun | Relation to | Date | Phone | Billing Address | | | t Type | Patient | of | | | | | | | | | | + +--------+ +--------+ + + | TERESA ROMO | Person | Self [birth year] Home: | [address] | | | al/Fam | | 1966 | [phone] | [place] | | | matias | | | [phone] | [phone] | + +--------+ +--------+ + +
--- OUTSIDE RECORDS SUMMARY | ~2019-04-21 | XMS | Encounter Summary ---
Demographics + + + | Address | [address] | | | [place] [address] | + + + | Home Phone | | + + + | Preferred Language | Unknown | + + + | Marital Status | Single | + + + | Episcopal Affiliation | Unknown | + + + | Race | White | + + + | Ethnic Group | or | + + + Author + + + | Author | [facility] | + + + | Organization | [facility] | + + + | Address | Unknown | + + + | Phone | Unavailable | + + + Support + + +---------+ + | Name | Relationship | Address | Phone | + + +---------+ + | Amari Ryan | ECON | Unknown | | + + +---------+ + Care Team Providers + +------+ + | Care Nurse Epidemiologist Name | Role | Phone | + +------+ + PCP | Unavailable | + +------+ + Reason for Visit +--------+ + | Reason | Comments | +--------+ + | Other | care everywhere query | +--------+ + Encounter Details +--------+ + + + + | Date | Type | Department | Care Team | Description | +--------+ + + + + | 08/02/ | Abstract | Rheumatology at | Clinic, | Other (care | | 2019 | | [facility] [place] | Rheumatology | everywhere query ) | | | | [address] | | | | | | [place] Mailcode: | | | | | | [address] [facility] | | | | | | [place], [address] | | | | | | [place], [place] | | | | | | [address] | | | | | | [phone] | | | +--------+ + + + [...]
--- OUTSIDE RECORDS SUMMARY | ~2019-04-21 | XMS | Encounter Summary ---
Demographics + + + | Address | [address] | | | [place] [address] | + + + | Home Phone | | + + + | Preferred Language | Unknown | + + + | Marital Status | Single | + + + | Samaritan Affiliation | Unknown | + + + [...] Team Providers + +------+ + | Care Chicken Cutter Name | Role | Phone | + +------+ + | No Pcp Per Patient | PCP | Unavailable | + +------+ + Encounter Details +--------+--------+ + + + | Date | Type | Department | Care Team | Description | +--------+--------+ + + + | 05/15/ | Travel | | | | | 2019 | | | | | +--------+--------+ + + + Social History + +-------+ [...]
--- OUTSIDE RECORDS SUMMARY | ~2019-04-21 | XMS | Encounter Summary ---
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 [place] M.D. CD / HS [id number] / [id number] / [id number] / [id number] Tdocumented in this encounter Plan of Treatment Not on filedocumented as of this encounter Visit Diagnoses Not on filedocumented in this encounter"
--- OUTSIDE RECORDS SUMMARY | ~2019-04-21 | XMS | Encounter Summary ---
Demographics + + + | Address | [address] | | | [place] [address] | + + + | Home Phone | | + + + | Preferred Language | Unknown | + + + | Marital Status | Single | + + + | Samaritan Affiliation | Unknown | + + + | Race | White | + + + | Ethnic Group | or | + + + Author + + + | Author | [facility] | + + + | Organization | [facility] | + + + | Address | Unknown | + + + | Phone | Unavailable | + + + Support + + +---------+ + | Name | Relationship | Address | Phone | + + +---------+ + | Amari Ryan | ECON | Unknown | | + + +---------+ + Care Team Providers + +------+ + | Care Paper Box Maker Name | Role | Phone | + [...] [id number] | | | | | | [facility] | | | | | | [place], [place] | | | | | | [address] | | | | | | [phone] | | | +--------+ + + + [...]
--- OUTSIDE RECORDS SUMMARY | ~2019-04-21 | XMS | Clinical Summary ---
Demographics + + + | Address | [address] | | | [place] [address] | + + + | Home Phone | | + + + | Preferred Language | Unknown | + + + | Marital Status | | + + + | Taoism Affiliation | Unknown | + + + | Race | Unknown | + + + | Ethnic Group | Unknown | + + + Author + + + | Author | [facility] | | | and [place] | + + + | Organization | [facility] | | | and [place] | [...] Team Providers + +------+ + | Care Towel Rolling Machine Operator Name | Role | Phone | + +------+ + | Anil Olivo MD | PCP | | + +------+ + Allergies Not on File Medications Not on file Active Problems Not on file Family History + + +------+ + | Medical History | Relation | Name | Comments | + + +------+ + | Diabetes, NIDDM | Father | | | + + [...] | | + + +------+ + | Multiple sclerosis | Sister | | | + [...] | + + Last Filed Vital Signs Not on file Plan of Treatment + + + + + | Health Maintenance | Due Date | Last Done | Comments | + + + + + | Vaccine: | | | | | Dtap/Tdap/Td (1 - | 3 | | | | Tdap) | | | | + + + + + | Cervical Cancer | | | | | Screening (Pap) | 4 | | | + + + + + | Vaccine: Zoster (1 | | | | | of 2) | 4 | | | + + + + + | Breast Cancer | | | | | Screening | 9 | | | + + + + + | Vaccine: Influenza | | | | | (#1) | 9 | | | + + + + + Results Not on filefrom Last 3 Months Advance Directives + + + + + | Type | Date Recorded | Patient | Explanation | | | | Lining Stuffer | | + + + + + | Power of | | | | | Electronics Engineering Technologist | | | | + + + + + | Advance | | | | | Directive | | | | + + + + +"
--- OUTSIDE RECORDS SUMMARY | ~2019-04-21 | XMS | Encounter Summary ---
Demographics + + + | Address | [address] | | | [place] [address] | + + + | Home Phone | | + + + | Preferred Language | Unknown | + + + | Marital Status | Single | + + + | Rastafari Affiliation | Unknown | + + + [...] Team Providers + +------+ + | Care Hogshead Opener Name | Role | Phone | + [...]
--- OUTSIDE RECORDS SUMMARY | ~2019-04-21 | XMS | Encounter Summary ---
Demographics + + + | Address | [address] | | | [place] [address] | + + + | Home Phone | | + + + | Preferred Language | Unknown | + + + | Marital Status | Single | + + + | Samaritan Affiliation | Unknown | + + + | Race | White | + + + | Ethnic Group | or | + + + Author + + + | Author | [facility] | + + + | Organization | [facility] | + + + | Address | Unknown | + + + | Phone | Unavailable | + + + Support + + +---------+ + | Name | Relationship | Address | Phone | + + +---------+ + | Amari Ryan | ECON | Unknown | | + + +---------+ + Care Team Providers + +------+ + | Care Systems Auditor Name | Role | Phone | + [...] Floor | | | | | | [place], [place] | | | | | | [address] | | | | | | [phone] | | | +--------+ + + + [...]
--- OUTSIDE RECORDS SUMMARY | ~2019-04-21 | XMS | Encounter Summary ---
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 Nemesio Lake M.D. CD / HS [id number] / [id number] / [id number] / [id number] Tdocumented in this encounter Plan of Treatment Not on filedocumented as of this encounter Visit Diagnoses Not on filedocumented in this encounter"
--- OUTSIDE RECORDS SUMMARY | ~2019-04-21 | XMS | Clinical Summary ---
Demographics + + + | Address | [address] | | | [place] [address] | + + + | Home Phone | | + + + | Preferred Language | Unknown | + + + | Marital Status | | + + + | Muslim Affiliation | Unknown | + + + | Race | Unknown | + + + | Ethnic Group | Unknown | + + + Author + + + | Author | [facility] | | | and Freddieana | + + + | Organization | [facility] | | | and Freddieana [...] Team Providers + +------+ + | Care Associate Professor Of Law Name | Role | Phone | + [...] Patient | Explanation | | | | Cashier Or Checker Stock Clerk | | + + + + + | Power of | | | | | Cancer Genetics Assistant | | | | + + + + + | Advance | | | | | Directive | | | | + + + + +"
--- OUTSIDE RECORDS SUMMARY | ~2019-04-21 | XMS | Encounter Summary ---
Demographics + + + | Address | [address] | | | [place] [address] | + + + | Home Phone | | + + + | Preferred Language | Unknown | + + + | Marital Status | Single | + + + | Worship Affiliation | Unknown | + + + [...] Providers + +------+ + | Care Manager Purchasing Name | Role | Phone | + [...] [id number] | | | | | | [facility] | | | | | | [place], [place] | | | | | | [address] | | | | | | [phone] | | | +--------+ + + + [...]
--- OUTSIDE RECORDS SUMMARY | ~2019-04-21 | XMS | Encounter Summary ---
Demographics + + + | Address | [address] | | | [place] [address] | + + + | Home Phone | | + + + | Preferred Language | Unknown | + + + | Marital Status | Single | + + + | Restorationist Affiliation | Unknown | + + + | Race | White | + + + | Ethnic Group | or | + + + Author + + + | Author | [facility] | + + + | Organization | [facility] | + + + | Address | Unknown | + + + | Phone | Unavailable | + + + Support + + +---------+ + | Name | Relationship | Address | Phone | + + +---------+ + | Amari Ryan | ECON | Unknown | | + + +---------+ + Care Team Providers + +------+ + | Care Bottle Washer Machine Name | Role | Phone | + +------+ + | No Pcp Per Patient | PCP | Unavailable | + +------+ + Reason for Visit Occupational Therapy (Routine) + +--------+ + + + + | Status | Reason | Specialty | Diagnoses / | Referred By | Referred To | | | | | Procedures | Contact | Contact | + +--------+ + + + + | Authorized | | Occupational | Diagnoses | | [facility] | | | | Therapy | | [place], | [address] | | | | | Fibromyalgia | Steph Claros, | [place] | | | | | Procedures | SEED CORN PRODUCTION MANAGER [address] | Mailcode: | | | | | | [address] | [facility] | | | | | OCCUPATIONAL | Valentina Figueroa | for Health | | | | | THERAPY | [facility] [place] | and Healing, | | | | | REFERRAL | [address] | Building [address], | | | | | | Phone: | [address] Floor | | | | | | [phone] | [facility] [place] | | | | | | Fax: | [address] | | | | | | [phone] | Phone: | | | | | | | [phone] | | | | | | | Fax: | | | | | | | [phone] | + +--------+ + + + + Encounter Details +--------+---------+ + + + | Date | Type | Department | Care Team | Description | +--------+---------+ + + + | 10/24/ | Office | [facility] Occupational | Josue Welsh, | Fibromyalgia | | 2019 | Visit | Therapy Services at | OT [address] | (Primary Dx) | | | | [place] [address] | | | | | [address] | [place], [place] | | | | | Rd Mailcode: OP19 | [address] | | | | | [facility] | [phone] | | | | | [place], [place] | | | | | | [address] | | | | | | [phone] | | | +--------+---------+ + + + [...] this encounter Patient Instructions Patient Instructions Josue Welsh OT - 10/24/2018 2:30 PM PDTPurse lipped [...] meditation to help you fall asleep fast https://www.DidLogube.com/watch?v=3uDNCNbGhkY Sleep Hypnosis for Bedtime Total Relaxation https://www.DidLogube.com/watch?v=72CbJ1f4u05 Calming An Overactive Mind https://www.DidLogube.com/watch?v=uuzJffTliSc Sleep Hypnosis ~ Your Garden of Positive Affirmations https://www.DidLogube.com/watch?v=sGDUogJmrLA The following have interactive communities for support: TakeCare https://www.Remedy Partners Insight Timer https://insighttimer.Intivix Self CV-4 Technique (Tennis Ball) The Device: [...] different f rom the original. Insurance: Payor: [place] [employer] BLUE SHIELD / Plan: 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 Marzena was enc ouraged to contact us in the event that she experiences further functional decline. Long-Term Goals, as discussed with Marzena Romo, due end of session: Patient will demonstrate understanding of energy conservation and pacing strategies and how to implement into daily routine. (Goal met 3/15/19). Patient will demonstrate understanding of work, leisure, [...] (detailed assessments) Complexity: OT Eval Moderate complexity [70699] Marzena's knowledge of disease process: Good . Marzena requires services that can be safely and effectively performed only by a qualified therapist to address the aforementioned and highlighted problems and goals. Rehab Potential: Good, if Marzena carries through with home exercise program. Goals discussed and agreed upon with Marzena and family. Individual cultural and social needs addressed. Josue Welsh, OT [facility] OCCUPATIONAL THERAPY SERVICES AT [facility] Scheduled Appointment time: 2:30 PM Treatment [...] every 60 days): Procedure Codes: Therapeutic Activities [72801] and OT Eval Moderate complexity [69751] Treatment Plan Summary: 1x Minutes per session: [...] Number visits used: 1 Outcome Measure 10/24/2018 ASAF Primary ICD/Diagnosis code M79.7 Fibromyalgia Start this [...] | + +--------+ + + + | [place] THERAPEUTIC | Routin | 10/24/2018 | Fibromyalgia [...]
--- OUTSIDE RECORDS SUMMARY | ~2019-04-21 | XMS | Clinical Summary ---
Demographics + + + | Address | [address] | | | [place] [address] | + + + | Home Phone | | + + + | Preferred Language | Unknown | + + + | Marital Status | Single | + + + | Gnosticist Affiliation | Unknown | + + + | Race | Unknown | + + + | Ethnic Group | Unknown | + + + Author + + + | Author | [employer] [facility] (Historical as of | | | 01-26-19) | + + + | Organization | [facility] (Historical as of | | | 01-26-19) [...] Team Providers + +------+ + | Care Technical Architect Name | Role | Phone | + [...] +------+-------+ + | PREMERA | PREMER | [id number] | | | [address] [address] | | | A BLUE | [address] | | | [place] | | | CARD | | | | [address] | +---------+--------+ +------+-------+ + + +--------+ +--------+ + + | Guarantor Name | Accoun | Relation to | Date | Phone | Billing Address | | | t Type | Patient | of | | | | | | | | | | + +--------+ +--------+ + + | TERESA ROMO | Person | Self | [birth year] | Home: | [address] | | | al/Fam | | 1966 | [phone] | [place] | | | matias | | | [phone] | [address] | + +--------+ +--------+ + +
--- OUTSIDE RECORDS SUMMARY | ~2019-04-21 | XMS | Clinical Summary ---
Demographics + + + | Address | [address] | | | [place] [address] | + + + | Home Phone | | + + + | Preferred Language | Unknown | + + + | Marital Status | Single | + + + | Presybeterian Affiliation | Unknown | + + + [...] Phone | + + +---------+ + | Amrai Ryan | ECON | Unknown | | + + +---------+ + Care Team Providers + +------+ + | Care Community Health Nurse Name | Role | Phone | + +------+ + | No Pcp Per Patient | PCP | Unavailable | + +------+ + Source Comments THELMA is fully live on both [facility] Ambulatory and [facility] InPatient.[facility] Allergies No Known Allergies Medications + + [...] BLUE | BCBS | [phone] | | [phone] | [address] | PPO | | SHIELD | OUT OF | [phone] | [address] | | | | STATE | | esent | | [place], | | | | | | | | [place] | | | | | | | | [address] | | + +--------+ +--------+ + +------+ + +--------+ +--------+ + + | Guarantor Name | Accoun | Relation to | Date | Phone | Billing Address | | | t Type | Patient | of | | | | | | | | | | + +--------+ +--------+ + + | Marzena Romo | Person | Self | [birth year] | [address] | | | al/Zheng | | 1966 | [phone] | [place] | | | matias | | | 4 ([place]) | [phone] | + +--------+ +--------+ + +"
--- OUTSIDE RECORDS SUMMARY | ~2019-04-21 | XMS | Encounter Summary ---
Demographics + + + | Address | [address] | | | [place] [address] | + + + | Home Phone | | + + + | Preferred Language | Unknown | + + + | Marital Status | Single | + + + | Gnosticist Affiliation | Unknown | + + + | Race | White | + + + | Ethnic Group | or | + + + Author + + + | Author | [facility] | + + + | Organization | [facility] | + + + | Address | Unknown | + + + | Phone | Unavailable | + + + Support + + +---------+ + | Name | Relationship | Address | Phone | + + +---------+ + | Amari Ryan | ECON | Unknown | | + + +---------+ + Care Team Providers + +------+ + | Care Plant Equipment Engineer Name | Role | Phone | + +------+ + PCP | Unavailable | + +------+ + Encounter Details +--------+ + + + + | Date | Type | Department | Care Team | Description | +--------+ + + + + | 07/11/ | Results | NON-[facility] EPIC | Cyndee Aguirre MD | | | 2010 | Only | Department | [facility] | | | | | | Health Dept [address] | | | | | | November [facility], | | | | | | [place] [address] | | | | | | [phone] | | | | | | | [...] + + + | ABDOMEN 1 VIEW [id number] | Routin | 07/11/2010 | | Results [...] in this encounter Results ABDOMEN 1 VIEW [address] (07/11/2010 10:42 AM PST) + + | Specimen | + + | | + + + + + | Narrative | Performed At | + + + | Exam: Abdomen, one-view. Indication: 44-year female with | [facility] | | abdominal pain. Looking for air in soft tissues. Patient had | DEPARTMENT OF | | cosmetic abdominal wall surgeries in [place]. Comparison: No | RADIOLOGY | | priors. [...] cosmetic abdominal wall surgeries in | | [place]. | | Comparison: No priors. | | [...] | | + +---------+ + + | [facility] DEPARTMENT OF | | | | | [...] + + + | BANDS % | AUTOMATION MECHANIC | 0 - 7 % | [facility] [...] | + + + + + | [facility] | And | [place] [address] | | | MEDICAL CENTER | Streets | | | + + + + + YONG MAGAÑA ONLY (07/11/2010 9:20 AM PST) + + + + + + | Component | Value | Ref Range | Performed | Pathologist | | | | | At | Signature | + + + + + + | COLOR(UR) | YELLOW | YELLOW | [facility] | | | | | [...] | + + + + + | [facility] | And Mel | [place] [address] | | | MEDICAL CENTER | Streets | | | + + + + [...] 0.2 | 0.2 - 1.6 MG/DL | [facility] | | | TOTAL | | | A MEDICAL | | | | | | CENTER | | + + + + + + | ESTIMATED | >60.0 | >60 | [facility] | | | GFR | | | A MEDICAL | | | | | | CENTER | | + + + + + + | FASTING? | UNK | HR | [facility] | | | | | | A [...] | + + + + + | [facility] | | [place] [address] | | | [facility] | [facility] | | | + + + + + documented in this encounter Visit Diagnoses Not on filedocumented in this encounter"
--- OUTSIDE RECORDS SUMMARY | ~2019-04-21 | XMS | Clinical Summary ---
Demographics + + + | Address | [address] | | | [place] [address] | + + + | Home Phone | | + + + | Preferred Language | Unknown | + + + | Marital Status | Single | + + + | Lutheran Affiliation | Unknown | + + + | Race | Unknown | + + + | Ethnic Group | Unknown | + + + Author + + + | Author | [email or web address] (Historical as of | | | 01-26-19) | + + + | Organization | [email or web address] (Historical as of | | | 01-26-19) [...] Team Providers + +------+ + | Care Building Certifier Name | Role | Phone | + [...] +------+-------+ + | PREMERA | PREMER | [id number] | | | [address] [address] | | | A BLUE | [address] | | | [place] | | | CARD | | | | [address] | +---------+--------+ +------+-------+ + + +--------+ +--------+ + + | Guarantor Name | Accoun | Relation to | Date | Phone | Billing Address | | | t Type | Patient | of | | | | | | | | | | + +--------+ +--------+ + + | TERESA ROMO | Person | Self | [birth year] | Home: | [address] | | | al/Fam | | 1966 | [phone] | [place] | | | matias | | | [address] | [address] | + +--------+ +--------+ + +
--- OUTSIDE RECORDS SUMMARY | ~2019-04-21 | XMS | Encounter Summary ---
Demographics + + + | Address | [address] | | | [place] [address] | + + + | Home Phone [...] Team Providers + +------+ + | Care Forming Machine Upkeep Mechanic Name | Role | Phone | + [...] | | | | | Procedures | GUIDE SETTER [address] | Mailcode: | | | | | PHYSICAL | [address] | [facility] | | | | | THERAPY | Valentina Figueroa | for Health | | | | | REFERRAL | [place], [place] | and Healing, | | | | | | [address] | Building [address], | | | | | | Phone: | [address] Floor | | | | | | [phone] | [facility] [place] | | | | | | Fax: | [address] | | | | | | [phone] | Phone: | | | | | | | [phone] | | | | | | | Fax: | | | | | | | [phone] | + +--------+ + + + + Encounter Details +--------+---------+ + + + | Date | Type | Department | Care Team | Description | +--------+---------+ + + + | 10/24/ | Office | Rehabilitation | Nohemi Cardozo, PT | Fibromyalgia | | 2019 | Visit | Services at [facility] | [address] | (Primary Dx) | | | | [address] | Valentina Figueroa [place], | | | | | Valentina Figueroa Mailcode: | [place] [address] | | | | | OP[address] Physician's | [phone] | | | | | [place], | | | | | | [place] [address] | | | | | | [phone] | | | +--------+---------+ + + + [...] and turned quickly back. Precautions: Hx of [place] 2012 d/t cysts. Fear of falling on [...] if needed. 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 Living situation: Marzena currently lives with [...] will demonstrate understanding of knowledge of pain compensation/risk management internship niques to decrease pain and increase function. [...] Moderate - Moderate complexity Complexity: Moderate - 31613 The patient requires services that can be [...] status. NOHEMI CARDOZO, PT REHABILITATION SERVICES AT [facility] Scheduled Appointment time: 12:30 PM Treatment began: [...] Fibromyalgia Next progress report 12/23/2018 Insurance: Payor: [employer] CROSS BLUE [facility] / Plan: BCBS OUT OF STATE [...] | + +--------+ + + + | [place] THERAPEUTIC | Routin | 10/24/2018 | Fibromyalgia [...]
--- OUTSIDE RECORDS SUMMARY | ~2019-04-21 | XMS | Encounter Summary ---
Demographics + + + | Address | [address] | | | [place] [address] | + + + | Home Phone | | + + + | Preferred Language | Unknown | + + + | Marital Status | Single | + + + | Advent Affiliation | Unknown | + + + | Race | White | + + + | Ethnic Group | or | + + + Author + + + | Author | [facility] | + + + | Organization | [facility] | + + + | Address | Unknown | + + + | Phone | Unavailable | + + + Support + + +---------+ + | Name | Relationship | Address | Phone | + + +---------+ + | Amari Ryan | ECON | Unknown | | + + +---------+ + Care Team Providers + +------+ + | Care Account Solutions Analyst Name | Role | Phone | + +------+ + PCP | Unavailable | + +------+ + Encounter Details +--------+ + + + + | Date | Type | Department | Care Team | Description | +--------+ + + + + | 07/11/ | Results | NON-[facility] EPIC | Cyndee Aguirre MD | | | 2010 | Only | Department | [facility] | | | | | | Health Dept [address] | | | | | | November [facility], | | | | | | [place] [address] | | | | | | [phone] | | | | | | | [...] + + + | ABDOMEN 1 VIEW [address] | Routin | 07/11/2010 | | Results [...] in this encounter Results ABDOMEN 1 VIEW [address]162 (07/11/2010 10:42 AM PST) + + | Specimen | + + | | + + + + + | Narrative | Performed At | + + + | Exam: Abdomen, one-view. Indication: 44-year female with | [facility] | | abdominal pain. Looking for air in soft tissues. Patient had | DEPARTMENT OF | | cosmetic abdominal wall surgeries in [place]. Comparison: No | RADIOLOGY | | priors. [...] cosmetic abdominal wall surgeries in | | [place]. | | Comparison: No priors. | | [...] + + + | BANDS % | PEDIATRICIAN | 0 - 7 % | [facility] [...] + + | [facility] | And | [place] [address] | | | MEDICAL CENTER | Streets [...] + | [facility] | And Mel | [place] [address] | | | MEDICAL CENTER | Streets [...] | FASTING? | UNK | HR | [facility] | | | | | | A [...] + + | [facility] | | [place] [address] | | | [facility] | [facility] | | | + + + + + documented in this encounter Visit Diagnoses Not on filedocumented in this encounter"
--- OUTSIDE RECORDS SUMMARY | ~2019-04-21 | XMS | Clinical Summary ---
Demographics + + + | Address | [address] | | | [place] [address] | + + + | Home Phone | | + + + | Preferred Language | Unknown | + + + | Marital Status | | + + + | Scientology Affiliation | Unknown | + + + | Race | Unknown | + + + | Ethnic Group | Unknown | + + + Author + + + | Author | [facility] | | | and Freddieana | + + + | Organization | [facility] | [...] Team Providers + +------+ + | Care Multicultural Manager Name | Role | Phone | [...] Patient | Explanation | | | | Clip Coater | | + + + + + | Power of | | | | | Cooker Casing | | | | + + + + + | Advance | | | | | Directive | | | | + + + + +"
--- OUTSIDE RECORDS SUMMARY | ~2019-04-21 | XMS | Encounter Summary ---
Demographics + + + | Address | [address] | | | [place] [address] | + + + | Home Phone | | + + + | Preferred Language | Unknown | + + + | Marital Status | Single | + + + | Mormonism Affiliation | Unknown | + + + [...] Team Providers + +------+ + | Care Cdl A Driver Name | Role | Phone | + [...]
--- OUTSIDE RECORDS SUMMARY | ~2019-04-21 | XMS | Encounter Summary ---
Demographics + + + | Address | [address] | | | [place] [address] | + + + | Home Phone | | + + + | Preferred Language | Unknown | + + + | Marital Status | Single | + + + | Jew Affiliation | Unknown | + + + | Race | White | + + + | Ethnic Group | or | + + + Author + + + | Author | [facility] | + + + | Organization | [facility] | + + + | Address | Unknown | + + + | Phone | Unavailable | + + + Support + + +---------+ + | Name | Relationship | Address | Phone | + + +---------+ + | Amari Ryan | ECON | Unknown | | + + +---------+ + Care Team Providers + +------+ + | Care Gallery Assistant Name | Role | Phone | + [...] | | | | | Procedures | RESERVE OFFICER [address] | Mailcode: | | | | | PHYSICAL | [address] | [facility] | | | | | THERAPY | Valentina Figueroa | for Health | | | | | REFERRAL | [place], [place] | and Healing, | | | | | | [address] | Building [address], | | | | | | Phone: | [address] Floor | | | | | | [phone] | [facility] [place] | | | | | | Fax: | [address] | | | | | | [phone] | Phone: | | | | | | | [phone] | | | | | | | Fax: | | | | | | | [phone] | + +--------+ + + + + Encounter Details +--------+---------+ + + + | Date | Type | Department | Care Team | Description | +--------+---------+ + + + | 10/24/ | Office | Rehabilitation | Nohemi Cardozo, PT | Fibromyalgia | | 2019 | Visit | Services at [facility] | [address] | (Primary Dx) | | | | [address] | Valentina Figueroa [place], | | | | | Valentina Figueroa Mailcode: | [place] [address] | | | | | [address]19 Physician's | [phone] | | | | | [place], | | | | | | [place] [address] | | | | | | [phone] | | | +--------+---------+ + + + [...] for falls SUBJECTIVE: History of Presenting Problem: Marezna Romo is a 52 y.o. female who [...] and turned quickly back. Precautions: Hx of [place] 2012 d/t cysts. Fear of falling on [...] if needed. 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 Living situation: Marzena currently lives with [...] will demonstrate understanding of knowledge of pain compensation/fuel management handler niques to decrease pain and increase function. [...] Moderate - Moderate complexity Complexity: Moderate - 88426 The patient requires services that can be [...] status. NOHEMI CARDOZO, PT REHABILITATION SERVICES AT [facility] Scheduled Appointment time: 12:30 PM Treatment began: [...] Fibromyalgia Next progress report 12/23/2018 Insurance: Payor: [employer] CROSS BLUE [facility] / Plan: BCBS OUT OF STATE [...]
--- OUTSIDE RECORDS SUMMARY | ~2019-04-21 | XMS | Encounter Summary ---
Demographics + + + | Address | [address] | | | [place] [address] | + + + | Home Phone | | + + + | Preferred Language | Unknown | + + + | Marital Status | Single | + + + | Taoist Affiliation | Unknown | + + + [...] Team Providers + +------+ + | Care Insurance Coordinator Name | Role | Phone | [...] | | Therapy | | Sabino, | [address] | | | | | Fibromyalgia | Steph Claros, | [place] | | | | | Procedures | FORENSIC MANAGER [address] | Mailcode: | | | | | | Sylvester Sanchez | [facility] | | | | | OCCUPATIONAL | Valentina Figueroa | for Health | | | | | THERAPY | [facility] [place] | and Healing, | | | | | REFERRAL | [address] | Building 1, | | | | | | Phone: | [address]St Floor | | | | | | [phone] | [facility] [place] | | | | | | Fax: | [address] | | | | | | [phone] | Phone: | | | | | | | [phone] | | | | | | | Fax: | | | | | | | [phone] | + +--------+ + + + + [...] | | | | | Procedures | FORENSIC MANAGER [address] | Mailcode: | | | | | PHYSICAL | Sylvester Sanchez | [facility] | | | | | THERAPY | Valentina Figueroa | for Health | | | | | REFERRAL | [place], [place] | and Healing, | | | | | | [address] | Building 1, | | | | | | Phone: | 1St Floor | | | | | | [phone] | [place], [place] | | | | | | Fax: | [address] | | | | | | [phone] | Phone: | | | | | | | [phone] | | | | | | | Fax: | | | | | | | [phone] | + +--------+ + + + + [...] | | | | | | [place] [address] | Pavilion | | | | | | Phone: | [place], [place] | | | | | | [phone] | [address] | | | | | | Fax: | Phone: | | | | | | [phone] | [phone] | | | | | | | Fax: | | | | | | | [phone] | + +--------+ + + + + Encounter Details +--------+---------+ + + + | Date | Type | Department | Care Team | Description | +--------+---------+ + + + | 10/24/ | Office | Rheumatology at | Clinic, [facility] | Fibromyalgia | | 2019 | Visit | Physicians [place] | Fibromyalgia [address] | (Primary Dx); | | | | [address] | [address] | Non-restorative | | | | Valentina Figueroa Mailcode: | Road [place], [place] | sleep; Vitamin D | | | | [address] Physician's | [address] | deficiency; | | | | [facility] [place], | | Trochanteric | | | | [place] [address] | | bursitis of both | | | | [phone] | | hips | +--------+---------+ + + [...] encounter Patient Instructions Patient Instructions Steph Gallo, FORENSIC MANAGER - 10/24/2018 1:30 PM PDT 1. TENS [...] are, in fact, subjective... Website's: Www.myalgia.com Www.myalgiateam.com Http://fibroguide.med.[facility]/fibroguide.html Program features 10 modules: Understanding Fibromyalgia Being Active Sleep Relaxation Time for You Setting Goals Pacing Yourself (Task Player Radha) Thinking Differently Communicating Fibro Fog Www.lumosity.com Brain games and brain training Coaching: http://Jobvite.com/ On-line exercise program recommendations (Youtube): Warm up Exercise for Fibromyalgia [facility] for Fibromyalgia Restorative Chair Yoga for Chronic Pain Sleepy Santosha Fibromyalgia Pain Relief Stretching Program: Gentle but Effective physicaltherapyvideo 3 mins Qi Gong Exercise Workout Routine for Fibromyalgia Pain Relief - Qi Gong Chi [employer] QiGongTV - QiGong Chi [employer] Qigong for Seniors - Sitting Version relaxedandalert Local support groups: [facility] Fibromyalgia,Chronic Pain, Chronic Fatigue Support Group Address: Meets At [facility], [address] [place] [address] Books: "Fibromyalgia: Woman's Tool Kit" by Donna Monique and Eduardo Darling. "Take Back Your Life: Find Hope And Amenia From Fibromyalgia Symptoms And Pain" by Bambi Russellbern. "The FibroManual: A Complete Fibromyalgia Treatment Guide [...] explain the pain and other symptoms Source: [place] College of Rheumatology, 2010 How is fibromyalgia [...] use of an opioid narcotic is needed. Fvnv-vhr-fvkllje medicines such as acetaminophen (Tylenol) or nonsteroidal [...] caused you r illness. Additional Information The [place] College of Rheumatology has compiled this list to give you a starting point fo r your own additional research. The ACR does not endorse or maintain these websites and is n ot responsible for any information or claims provided on them. It is always best to talk wit h your ship's pilot for more information and before making any decisions about your care. National [place] of Arthritis and Musculoskeletal and Skin Diseases National Fibromyalgia Association National Fibromyalgia and Chronic Pain Association National Fibromyalgia Partnership, Inc. The [place] Fibromyalgia Syndrome Association, Inc. Trochanteric Bursitis: Exercises [...] 4. Repeat 2 to 4 times. Double qsoo-bu-fcxol 1. Lie on your back with your [...] about "Trochanteric Bursitis: Exercises", log into your [employer] account at [email or web address].[email or web address]/[employer]. You can enter N503 in the "[employer] Library" search box. Not on [employer]? Review the [employer] section of your After Visit Summary for directions on ho w to sign up. Current as of: March 01, 2018 Content Version: 11.9 3252-6342 [employer]. Care instructions adapted under license by [facility] [place]. If you have questions about a medical condition or this instr uction, always ask your healthcare professional. [employer] disclaims any stefanie anty or liability for your use of this information. documented in this encounter Progress Notes Steph Gallo FNP - 10/24/2018 1:30 PM PDTFormatting of this note might be differe nt from the original. . New Fibromyalgia Patient Consult: This patient was referred by: Anil James MD [facility] [address] [place] [address], . Your patient, Ms. Romo, a 52 y.o. female, was evaluated in the [facility] on October 23, 2018. This evaluation consisted of a fibromyalgia focused history and limited ph ysical examination, psychosocial assessment with focus on education and counselling regardin g diagnosis, treatment options, self-care measures, expectations and prognosis. Travelling from [place], [place] History of Current Problem: Ms. Romo [...] s that she drinks alcohol. Work History: [employer] men part-time and "disabled." Medico-Legal: No pending [...] RHEUMATOLOGY FACULTY [facility] Mailcode: Op[address] [address] documented in t his encounter Plan of [...]
--- OUTSIDE RECORDS SUMMARY | ~2019-04-21 | XMS | Encounter Summary ---
Demographics + + + | Address | [address] | | | [place] [address] | + + + | Home Phone | | + + + | Preferred Language | Unknown | + + + | Marital Status | | + + + | Orthodox Affiliation | Unknown | + + + | Race | Unknown | + + + | Ethnic Group | Unknown | + + + Author + + + | Author | [facility] | | | and Freddieana | + + + | Organization | [facility] | | | and Freddieana [...] Team Providers + +------+ + | Care Multiple Needle Stitcher Name | Role | Phone | + +------+ + PCP | Unavailable | + +------+ + Encounter Details +--------+ + + + + | Date | Type | Department | Care Team | Description | +--------+ + + + + | 12/08/ | Hospital | [facility] | Shay, | | | 2011 - | Encounter | MEDICAL CENTER | MD Daryl [address] | | | | | CLINICAL DECISION | [address] | | | 12/09/ | | [address] | [place] [address] | | | 2011 | | [place], [place] | [phone] | | | | | [address] | | | | | | [phone] | | | +--------+ + + + [...] 12/20/111841 Date of Service: 12/20/111837 Status: Signed Telephoto Installer: Ag Abbasi MD (Physician) The patient is [...] when she arrived to the hospital, [facility], she was esther n free. During hospitalization over there, her EKG was negative for acute ST changes , first set of cardiac enzymes negative, but second and third set came back mildly positive. Admitted to [facility] and patient had a cath done by Dr Yoo reported as: PROCEDURE Left heart catheterization, with left ventriculography, coronary angiography. INDICATIONS This is a 46-year-old female who presented to an [facility] hospital with chest pain, EKG changes, [...] drip that was discontinued. EQUIPMENT 1. A 6-Cypriot arterial sheath. 2. A 5-Cypriot pigtail catheter. 3. A 5-Cypriot JL4 catheter. 4. A 5-Cypriot 3DRC catheter. COMPLICATIONS None. DESCRIPTION OF PROCEDURE The right groin was prepped and draped in the usual fashion for a percutaneous approach. A 6-Cypriot arterial sheath was placed in the right femoral artery without difficulty. A 5-Cypriot pigtail catheter was then advanced to the ascending aorta under fluoroscopic guidance. Initial aortic pressures were obtained. This catheter was then advanced across the aortic valve under fluoroscopic guidance. Left ventricular pressures were obtained. A single-plane, 30-degree FROST ventriculogram was performed. Pullback pressures were obtained. This catheter was then exchanged for a 5-Cypriot JL4 catheter. This catheter was then advanced to the left coronary ostium under fluoroscopic guidance. Selective coronary arteriography was performed in multiple views. This catheter was then exchanged for a 5-Cypriot 3DRC catheter. This catheter was then advanced [...] 12/10/11109 Date of Service: 12/10/11107 Status: Signed Telephoto Installer: Suyapa Palma RN (Registered Nurse) Pt requested [...] 12/09/111429 Date of Service: 12/09/111429 Status: Signed Telephoto Installer: Argelia Rivera RPH (Pharmacist) Renal Dosing Monitoring: [...] | | | who presented to an [facility] hospital with chest pain, EKG changes, [...] | | | discontinued. EQUIPMENT 1. A 6-Cypriot arterial sheath. 2. A | | | 5-Cypriot pigtail catheter. 3. A 5-Cypriot JL4 catheter. 4. A 5-Cypriot | | | 3DRC catheter. COMPLICATIONS None. DESCRIPTION OF PROCEDURE | | | The right groin was prepped and draped in the usual fashion for a | | | percutaneous approach. A 6-Cypriot arterial sheath was placed in the | | | right femoral artery without difficulty. A 5-Cypriot pigtail catheter | | | was then [...] | catheter was then exchanged for a 5-Cypriot JL4 catheter. This | | | catheter was then advanced to the left coronary ostium under | | | fluoroscopic guidance. Selective coronary arteriography was performed | | | in multiple views. This catheter was then exchanged for a 5-Cypriot | | | 3DRC catheter. This catheter [...] a 46-year-old female who presented to an [facility] with | | chest pain, EKG changes, [...] | | EQUIPMENT | | 1. A 6-Cypriot arterial sheath. | | 2. A 5-Cypriot pigtail catheter. | | 3. A 5-Cypriot JL4 catheter. | | 4. A 5-Cypriot 3DRC catheter. | | | | COMPLICATIONS | | None. | | | | DESCRIPTION OF PROCEDURE | | The right groin was prepped and draped in the usual fashion for a | | percutaneous approach. A 6-Cypriot arterial sheath was placed in the right | | femoral artery without difficulty. A 5-Cypriot pigtail catheter was then | | advanced [...] was then exchanged for a | | 5-Cypriot JL4 catheter. This catheter was then advanced to the left | | coronary ostium under fluoroscopic guidance. Selective coronary | | arteriography was performed in multiple views. This catheter was then | | exchanged for a 5-Cypriot 3DRC catheter. This catheter was then advanced [...]
--- OUTSIDE RECORDS SUMMARY | ~2019-04-21 | XMS | Encounter Summary ---
Demographics + + + | Address | [address] | | | [place] [address] | + + + | Home Phone | | + + + | Preferred Language | Unknown | + + + | Marital Status | Single | + + + | Synagogue Affiliation | Unknown | + + + | Race | White | + + + | Ethnic Group | or | + + + Author + + + | Author | [facility] | + + + | Organization | [facility] | + + + | Address | Unknown | + + + | Phone | Unavailable | + + + Support + + +---------+ + | Name | Relationship | Address | Phone | + + +---------+ + | Amari Ryan | ECON | Unknown | | + + +---------+ + Care Team Providers + +------+ + | Care Electrotyper Apprentice Name | Role | Phone | + [...] [id number] | | | | | | [place], [place] | | | | | | [address] | | | | | | [phone] | | | +--------+ + + + [...]
--- OUTSIDE RECORDS SUMMARY | ~2019-04-21 | XMS | Encounter Summary ---
Demographics + + + | Address | [address] | | | [place] [address] | + + + | Home Phone | | + + + | Preferred Language | Unknown | + + + | Marital Status | | + + + | Judaism Affiliation | Unknown | + + + | Race | Unknown | + + + | Ethnic Group | Unknown | + + + Author + + + | Author | [facility] | | | and Freddieana | + + + | Organization | [facility] | | | and Freddieana [...] Team Providers + +------+ + | Care Vp Integrity Name | Role | Phone | + +------+ + PCP | Unavailable | + +------+ + Encounter Details +--------+ + + + + | Date | Type | Department | Care Team | Description | +--------+ + + + + | 12/25/ | Hospital | [facility] | | | | 2000 | Encounter | MED CTR XRAY [address] | | | | | | [address] | | | | | | [place] [address] | | | | | | [phone] | | | +--------+ + + + [...]
--- OUTSIDE RECORDS SUMMARY | ~2019-04-21 | XMS | Encounter Summary ---
Demographics + + + | Address | [address] | | | [place] [address] | + + + | Home Phone | | + + + | Preferred Language | Unknown | + + + | Marital Status | | + + + | Hinduism Affiliation | Unknown | + + + | Race | Unknown | + + + | Ethnic Group | Unknown | + + + Author + + + | Author | [facility] | | | and Freddieana | + + + | Organization | [facility] | | | and Freddieana | [...] Team Providers + +------+ + | Care Automotive Professional Name | Role | Phone | + +------+ + PCP | Unavailable | + +------+ + Encounter Details +--------+ + + + + | Date | Type | Department | Care Team | Description | +--------+ + + + + | 12/25/ | Hospital | [facility] | | | | 2000 | Encounter | MED CTR XRAY [address] | | | | | | [address] | | | | | | [place] [address] | | | | | | [phone] | | | +--------+ + + + [...]
--- OUTSIDE RECORDS SUMMARY | ~2019-04-21 | XMS | Encounter Summary ---
Demographics + + + | Address | [address] | | | [place] [address] | + + + | Home Phone | | + + + | Preferred Language | Unknown | + + + | Marital Status | Single | + + + | Anabaptist Affiliation | Unknown | + + + | Race | White | + + + | Ethnic Group | or | + + + Author + + + | Author | [facility] | + + + | Organization | [facility] | + + + | Address | Unknown | + + + | Phone | Unavailable | + + + Support + + +---------+ + | Name | Relationship | Address | Phone | + + +---------+ + | Amari Ryan | ECON | Unknown | | + + +---------+ + Care Team Providers + +------+ + | Care Deckhand Sponge Boat Name | Role | Phone | + [...] | | Therapy | | Sabino, | [address] | | | | | Fibromyalgia | Steph Claros, | [place] | | | | | Procedures | [facility] NURSE [address] | Mailcode: | | | | | | Syl[address] Sanchez | [facility] | | | | | OCCUPATIONAL | Vlaentina Figueroa | for Health | | | | | THERAPY | [facility] [place] | and Healing, | | | | | REFERRAL | [address] | [address], | | | | | | Phone: | [address] Floor | | | | | | [phone] | [facility] [place] | | | | | | Fax: | [address] | | | | | | [phone] | Phone: | | | | | | | [phone] | | | | | | | Fax: | | | | | | | [phone] | + +--------+ + + + + Encounter Details +--------+---------+ + + + | Date | Type | Department | Care Team | Description | +--------+---------+ + + + | 10/24/ | Office | [facility] | Josue Welsh, | Fibromyalgia | | 2019 | Visit | Therapy Services at | OT [address] | (Primary Dx) | | | | Jessica [place] [address] | | | | | [address] | [place], [place] | | | | | Rd Mailcode: OP19 | [address] | | | | | Phys[facility] | [phone] | | | | | [place], [place] | | | | | | [address] | | | | | | [phone] | | | +--------+---------+ + + + [...] meditation to help you fall asleep fast https://www.Fatboy Labsube.com/watch?v=3uDNCNbGhkY Sleep Hypnosis for Bedtime Total Relaxation https://www.Fatboy Labsube.com/watch?v=43EyH8w3x01 Calming An Overactive Mind https://www.Fatboy Labsube.com/watch?v=uuzJffTliSc Sleep Hypnosis ~ Your Garden of Positive Affirmations https://www.Fatboy Labsube.com/watch?v=sGDUogJmrLA The following have interactive communities for support: Midatech https://www.NovaSys Insight Timer https://insighttimer.MutualMind Self CV-4 Technique (Tennis Ball) The Device: [...] different f rom the original. 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 Marzena requires services that can be safely and effectively performed only by a qualified therapist to address the aforementioned and highlighted problems and goals. Rehab Potential: Good, if Marzena carries through with home exercise program. Goals discussed and agreed upon with Marzena and family. Individual cultural and social needs addressed. Josue Welsh, OT [facility]CCUPATIONAL [facility]AP[facility] SERVICES AT [facility] Scheduled Appointment time: 2:30 PM Treatment [...] every 60 days): Procedure Codes: Therapeutic Activities [19865] and OT Eval Moderate complexity [74927] Treatment Plan Summary: 1x Minutes per session: [...] | + +--------+ + + + | [place] [facility] | Routin | 10/24/2018 | Fibromyalgia [...]
--- OUTSIDE RECORDS SUMMARY | ~2019-04-21 | XMS | Encounter Summary ---
Demographics + + + | Address | [address] | | | [place] [address] | + + + | Home Phone [...] + + + | Author | [facility] | + + + | Organization | [facility] | + + + | Address | Unknown | + + + | Phone | Unavailable | + + + Support + + +---------+ + | Name | Relationship | Address | Phone | + + +---------+ + | Amari Ryan | ECON | Unknown | | + + +---------+ + Care Team Providers + +------+ + | Care Credit Specialist Name | Role | Phone | + [...] | | Therapy | | Sabino, | [address] | | | | | Fibromyalgia | Steph Claros, | [place] | | | | | Procedures | [address] | Mailcode: | | | | | | Syl[address] Sanchez | [facility] | | | | | OCCUPATIONAL | Valentina Figueroa | for Health | | | | | THERAPY | [facility] [place] | and Healing, | | | | | REFERRAL | [address] | [address], | | | | | | Phone: | [address] Floor | | | | | | [phone] | [facility] [place] | | | | | | Fax: | [address] | | | | | | [phone] | Phone: | | | | | | | [phone] | | | | | | | Fax: | | | | | | | [phone] | + +--------+ + + + + Encounter Details +--------+---------+ + + + | Date | Type | Department | Care Team | Description | +--------+---------+ + + + | 10/24/ | Office | [facility] | Josue Welsh, | Fibromyalgia | | 2019 | Visit | Therapy Services at | OT [address] | (Primary Dx) | | | | Jessica [place] [address] | | | | | [address] | [place], [place] | | | | | Rd Mailcode: OP19 | [address] | | | | | [facility] | [phone] | | | | | [place], [place] | | | | | | [address] | | | | | | [phone] | | | +--------+---------+ + + + [...] meditation to help you fall asleep fast https://www.Shoefitrube.com/watch?v=3uDNCNbGhkY Sleep Hypnosis for Bedtime Total Relaxation https://www.Shoefitrube.com/watch?v=56KyC2y7z31 Calming An Overactive Mind https://www.Shoefitrube.com/watch?v=uuzJffTliSc Sleep Hypnosis ~ Your Garden of Positive Affirmations https://www.Shoefitrube.com/watch?v=sGDUogJmrLA The following have interactive communities for support: Food on the Table https://www.Magpower Insight Timer https://insighttimer.Done. Self CV-4 Technique (Tennis Ball) The Device: [...] different f rom the original. Insurance: Payor: [place] [employer] BLUE SHIELD / Plan: [facility] OUT OF STATE / Product Type: PPO / Non-Medicare [facility] OCCUPATIONAL THERAPY EVALUATION Previous occupational therapy treatment [...] members or friends involved with rehabilitation th colettenilo. 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 Marzena requires services that can be safely and effectively performed only by a qualified therapist to address the aforementioned and highlighted problems and goals. Rehab Potential: Good, if Marzena carries through with home exercise program. Goals discussed and agreed upon with Marzena and family. Individual cultural and social needs addressed. Josue Welsh, OT [facility] OCCUPATIONAL THERAPY SERVICES AT [facility] Scheduled Appointment time: 2:30 PM Treatment [...] every 60 days): Procedure Codes: Therapeutic Activities [65489] and OT Eval Moderate complexity [71168] Treatment Plan Summary: 1x Minutes per session: [...] | + +--------+ + + + | [place] [facility] | Routin | 10/24/2018 | Fibromyalgia [...]
--- OUTSIDE RECORDS SUMMARY | ~2019-04-21 | XMS | Encounter Summary ---
Demographics + + + | Address | [address] | | | [place] [address] | + + + | Home Phone | | + + + | Preferred Language | Unknown | + + + | Marital Status | Single | + + + | Caodaism Affiliation | Unknown | + + + [...] Team Providers + +------+ + | Care Packaging Line Operator Name | Role | Phone | [...] query ) | | | | [address] | | | | | | Valentina Figueroa Mailcode: | | | | | | [address] Physician's | | | | | | [place], [address] | | | | | | [place], [place] | | | | | | [address] | | | | | | [phone] | | | +--------+ + + + [...]
--- OUTSIDE RECORDS SUMMARY | ~2019-04-21 | XMS | Encounter Summary ---
Demographics + + + | Address | [address] | | | [place] [address] | + + + | Home Phone | | + + + | Preferred Language | Unknown | + + + | Marital Status | Single | + + + | Pentecostal Affiliation | Unknown | + + + [...] Team Providers + +------+ + | Care Fiberline Supervisor Name | Role | Phone | [...] [id number] | | | | | | [place], [place] | | | | | | [address] | | | | | | [phone] | | | +--------+ + + + [...]
--- OUTSIDE RECORDS SUMMARY | ~2019-04-21 | XMS | Clinical Summary ---
Demographics + + + | Address | [address] | | | [place] [address] | + + + | Home Phone | | + + + | Preferred Language | Unknown | + + + | Marital Status | Single | + + + | Restorationism Affiliation | Unknown | + + + [...] Team Providers + +------+ + | Care Customer Servicer Name | Role | Phone | + +------+ + | No Pcp Per Patient | PCP | Unavailable | + +------+ + Source Comments THELMA is fully live on both [facility] and [facility] InPatient.[facility] Allergies No Known Allergies Medications + + [...] BLUE | BCBS | xxxxxxxxxxx | | [phone] | [address] | PPO | | SHIELD | OUT OF | x | [phone] | [phone] | [address] | | | | STATE | | esent | | [place], | | | | | | | | [place] | | | | | | | | [address] | | + +--------+ +--------+ + +------+ + +--------+ +--------+ + + | Guarantor Name | Accoun | Relation to | Date | Phone | Billing Address | | | t Type | Patient | of | | | | | | | | | | + +--------+ +--------+ + + | Marzena Romo | Person | Self | [birth year] | [address] | | | al/Zheng | | 1966 | [phone] | [place] | | | matias | | | [place] ([place]) | [phone] | + +--------+ +--------+ + +"
--- OUTSIDE RECORDS SUMMARY | ~2019-04-21 | XMS | Encounter Summary ---
Demographics + + + | Address | [address] | | | [place] [address] | + + + | Home Phone | | + + + | Preferred Language | Unknown | + + + | Marital Status | Single | + + + | Buddhism Affiliation | Unknown | + + + | Race | White | + + + | Ethnic Group | or | + + + Author + + + | Author | [facility] | + + + | Organization | [facility] | + + + | Address | Unknown | + + + | Phone | Unavailable | + + + Support + + +---------+ + | Name | Relationship | Address | Phone | + + +---------+ + | Amari Ryan | ECON | Unknown | | + + +---------+ + Care Team Providers + +------+ + | Care Sand Drier Name | Role | Phone | [...] [id number] | | | | | | [facility] | | | | | | [place], [place] | | | | | | [address] | | | | | | [phone] | | | +--------+ + + + [...]
--- OUTSIDE RECORDS SUMMARY | ~2019-04-21 | XMS | Encounter Summary ---
Demographics + + + | Address | [address] | | | [place] [address] | + + + | Home Phone | | + + + | Preferred Language | Unknown | + + + | Marital Status | Single | + + + | Confucianism Affiliation | Unknown | + + + | Race | White | + + + | Ethnic Group | or | + + + Author + + + | Author | [facility] | + + + | Organization | [facility] | + + + | Address | Unknown | + + + | Phone | Unavailable | + + + Support + + +---------+ + | Name | Relationship | Address | Phone | + + +---------+ + | Amari Ryan | ECON | Unknown | | + + +---------+ + Care Team Providers + +------+ + | Care Wool Batting Worker Name | Role | Phone | + +------+ + PCP | Unavailable | + +------+ + Encounter Details +--------+ + + + + | Date | Type | Department | Care Team | Description | +--------+ + + + + | 07/11/ | Results | NON-[facility] EPIC | Cyndee Aguirre MD | | | 2010 | Only | Department | [facility] | | | | | | Health Dept [address] | | | | | | November [facility], | | | | | | [place] [address] | | | | | | [phone] | | | | | | | [...] + + + | ABDOMEN 1 VIEW [id number] | Routin | 07/11/2010 | | Results [...] in this encounter Results ABDOMEN 1 VIEW [id number] (07/11/2010 10:42 AM PST) + + | Specimen | + + | | + + + + + | Narrative | Performed At | + + + | Exam: Abdomen, one-view. Indication: 44-year female with | [facility] | | abdominal pain. Looking for air in soft tissues. Patient had | DEPARTMENT OF | | cosmetic abdominal wall surgeries in [place]. Comparison: No | RADIOLOGY | | priors. [...] cosmetic abdominal wall surgeries in | | [place]. | | Comparison: No priors. | | [...] + + + | BANDS % | STREET OPENINGS INSPECTOR | 0 - 7 % | [facility] + + | [facility] | [place] [address] | | | [facility] | Streets [...] + | [facility] | And [place] | [place] [address] | | | MEDICAL CENTER | Streets [...] | FASTING? | UNK | HR | [facility] | | | | | [...] | + + + + + | [facility] | | [place] [address] | | | [facility] | [facility] | | | + + + + + documented in this encounter Visit Diagnoses Not on filedocumented in this encounter"
[~2019-04-21 22:03] MED LIST: CYCLOBENZAPRINE10 MG PO; CYMBALTA60 MG PO; LEVOTHYROXINE200 MCG PO; LEVOTHYROXINE25 MCG PO; NEXIUM 24HR20 M2 PO; NORCO 7.5-3251 EACH PO; TIZANIDINE HCL4 MG PO
--- OUTSIDE RECORDS SUMMARY | 2019-04-21 22:06 | XMS ---
PreManage Notification: TERESA CHERRY Security Director Title Events No recent Security Events currently on file [facility] There are no care providers on record at this time. Laura has no Care Guidelines for this patient. Ynes VISIT COUNT (12 MO.) 1 JOHANN Rizvi TOTAL 1 NOTE: Visits indicate total known visits. ED/UCC VISIT TRACKING (12 MO.) 04/21/2019 22:04 JOHANN Rodriguez OR TYPE: Emergency COMPLAINT: - POSS STROKE INPATIENT VISIT TRACKING (12 MO.) No inpatient visits to display in this time frame [email or web address]
--- NOTE | 2019-04-22 02:30 | NUR ---
PT ARRIVED VIA STRETCHER AND WAS TRANSFERED INTO HOSPITAL BED. PLACED ON GREEN HIDE INSPECTOR. INTIAL BLOOD PRESSURE OF 147/86. PT ARRIVED ON LEVOPHED DRIP INFUSING AT 4 MCG/HR. LEVOPHED DRIP DECREASED TO 2 MCG/ MIN AT THIS TIME.
--- NOTE | 2019-04-22 02:55 | NUR ---
LEVOPHED DRIP TURNED OFF FOR SYSTOLIC BLOOD PRESSURES IN THE 120'S-130'S. LEVOPHED DRIPPED TURNED OFF AT THIS TIME. IV FLUIDS INFUSING. PLAN OF CARE DISCUSSED FOR PATIENT AND FAMILY. ALL QUESTIONS ANSWERED. CALL LIGHT WITHIN REACH. NO FURTHER NEEDS AT THIS TIME.
--- NOTE | 2019-04-22 04:03 | NUR ---
PT RESTING IN BED. BREATHING EVEN AND UNLABORED R=16. IV FLUIDS CONTINUE INFUSING. OXYGEN SATURATIONS 99 PERCENT ON ROOM AIR. WILL CONTINUE TO MONITOR.
--- NOTE | 2019-04-22 07:20 | EKG ---
[facility] [address], [place] [address] Signed Normal sinus rhythm with sinus arrhythmia Cannot rule out Anterior infarct , age undetermined Abnormal ECG No previous ECGs available Confirmed by PRICE HIGUERA MD ([id number]) on 04/22/2019 7:20:43 AM Electronically Signed By: PRICE HIGUERA MD 04/22/19 0720 PATIENT NAME: TERESA CHERRY Electrocardiogram DATE OF : 61 PHYSICIAN: PRICE HIGUERA MD REPORT #: [id number] REPORT IS CONFIDENTIAL AND NOT TO BE RELEASED WITHOUT AUTHORIZATION
--- NOTE | 2019-04-22 08:00 | NUR ---
DR. HIGUERA HERE TO SEE PATIENT. ORDERS RECIEVED. ASSESSMENT DONE. PATIENT THEN UP TO CHAIR. TALKDE WITH PATIENT ABOUT PLAC OF CARE FOR DAY. IS UNDERSTANDING. DINEIS DIZZINESS WITH MOVEMENT.
--- NOTE | 2019-04-22 09:00 | NUR ---
REMAINS IN CHAIR. BREAKFAST GIVEN. DENIES PROBLEMS. TALKATIVE AND COOPERATIVE.
[2019-04-22] MEDS ORDERED: NEURONTIN300 MG PO (09:38)
[2019-04-22] MEDS ORDERED: GABAPENTIN300 MG PO (09:38)
--- NOTE | 2019-04-22 10:00 | NUR ---
REPOSITIONED IN CHAIR. STOOD BRIEFY THEN SAT BACK DOWN. DENIES DIZZINESS WITH MOVEMENT. WILL TALK WITH DR. HIGUERA REGARDING IVF AND ADLER CATH.
--- NOTE | 2019-04-22 12:00 | NUR ---
tolerated shower well. FAMILY MEMBERS ARE IN ROON. ASSESSMENT DONE. NO CHANGES. PATIENT IS W/O C/O. LUNCH ORDERED.
--- NOTE | 2019-04-22 12:33 | NUR ---
IVF HUNG PER ORDERS. FAMILY REMAIN IN ROOM.
--- NOTE | 2019-04-22 12:55 | NUR ---
SPOKE WITH PATIENT AND ADULT KIDS IN ROOM. PATIENT UP IN CHAIR. STATES SHE IS FEELING "MUCH BETTER". PATIENT LIVES WITH SPOUSE IN RV MOST OF THE YEAR. SHE SOMETIMES STAYS WITH ADULT KIDS. SHE DENIES USING DME FOR AMBULATION. SHE STATES SHE SOMETIMES HAS ISSUES WITH THE RV STAIRS THEY ARE STEEP. SHE PLANS TO DISCHARGE HOME, BUT MIGHT STAY WITH KIDS IF NEEDED. SHE STATES SHE IS CURRENTLY SEEING DR JAMES BUT THINKS SHE NEEDS MORE SPECIALISTS INVOLVED. SHE WANTS TO TALK WITH HIM AGAIN REGARDING THIS. SHE WAS THINKING ABOUT CHANGING DOCTORS, DISCUSSED THOSE AVAILABLE IN THE AREA. DISCUSSED THAT SHE SHOULD BE SURE TO KEEP HER PCP UNTIL SHE HAS A NEW ONE IF SHE DECIDES TO DO THIS. SHE FEELS SAFE TO RETURN HOME WITH NO KNOWN BARRIERS AT THIS TIME. WILL FOLLOW NEEDED.
--- NOTE | 2019-04-22 14:00 | NUR ---
REMAINS IN CHAIR. NO CHANGES. HR-110 TO 140. PERIODS OF AFIB VS MAT.
--- NOTE | 2019-04-22 15:30 | NUR ---
DR. BHAT UPDATED ON HEART RHYTHM. ORDERS RECIEVED TO GIVE LOPRESSOR 5 MG IV Q 6 HR.
--- NOTE | 2019-04-22 15:31 | NUR ---
Medications reconciled using pharmacy records and patient interview
--- NOTE | 2019-04-22 16:00 | NUR ---
ASSESSMENT DONE. REMAINS IN CHAIR. CONTINUE TO SAY A FEW WORDS. INC OF LARGE AMOUNT OF STOOL. TRANSFERRED TO COMMODE THEN TO BED. RESTRAINTS REMAIN IN PLACE. ATTENDS ON.
--- NOTE | 2019-04-22 16:30 | NUR ---
DR. HIGUERA HERE TO SEE PATIENT. ORDERS RECIEVED TO TRANSFER TO MED FLOOR, WILL REMAIN IN 130 HOUSE CONVEN.
--- NOTE | 2019-04-22 17:57 | NUR ---
SITTING UP IN BED FOR DINNER. DENIES PROBLEMS.
--- NOTE | 2019-04-22 18:25 | NUR ---
TOOK DINNER WELL. DENIES PROBLEMS.
--- NOTE | 2019-04-22 19:08 | NUR ---
PATIENT C/O BURNING IN THROAT AND UPPER CHEST. DR. HIGUERA AWARE. WILL ORDER PPI.
--- NOTE | 2019-04-22 20:06 | NUR ---
RESTING IN BED, GIVEN PROTONIX FOR HEARTBURN. NO OTHER C/O. ASSESSMENT DONE.
--- NOTE | 2019-04-22 20:44 | NUR ---
AMB TO BR, CHEKO WELL.
--- NOTE | 2019-04-22 21:50 | NUR ---
REPORT TO Harlan MEDEROS RN. PT TO MS PER MED
--- NOTE | 2019-04-22 22:05 | NUR ---
RECEIVED REPORT FROM DAY SHIFT RN. PATIENT IS RESTING IN BED. PATIENT OREINTED TO FLOOR, ROOM, AND CALL LIGHT. PATIENT IS NO TELE #1, IRREGULAR RHYTHYM, HR 62. PATIENT DENIES ANY NEEDS. PATIENT DENIES ANY COMMENTS, QUESTIONS, OR CONCERNS. IV INFUSING PER ORDER. CALL LIGHT IN REACH. ICE WATER PROVIDED.
--- NOTE | 2019-04-22 23:06 | NUR ---
SBA TO THE BATHROOM. PATIENT IS BACK IN BED. HIGH PROTIEN ENSURE PROVIDED PER PATIENT'S REQUEST.
--- NOTE | 2019-04-23 01:13 | NUR ---
CALL LIGHT ANSWERED. SBA TO THE BATHROOM. PATIENT IS BACK IN BED. ICE WATER REFILLED. NO OTHER NEEDS AT THIS TIME.
--- NOTE | 2019-04-23 01:44 | NUR ---
PATIENT ASSISTED TO THE RESTROOM BY FIRE OBSERVER. PATIENT WAS ABLE TO VOID. PATIENT IS NOW BACK IN BED RESTING. ASSESMENT COMPLETED. PATIENTS ICE WATER REFILLED. PATIENT DENIES ANY NEEDS AT THIS TIME. CALL LIGHT IN REACH.
--- NOTE | 2019-04-23 03:15 | NUR ---
PATIENT IS RESTING IN BED WITH EYES CLOSED, RR 18. CALL LIGHT IN REACH.
--- NOTE | 2019-04-23 04:41 | NUR ---
PATIENT IS NO A REGULAR DIET, TOLERATING WELL, AND NO COMPLAINTS OF NAUSEA. PATIENT IS A SBA AND IS STEADY ON HER FEET. PATIENT IS ON TELE #1, SR AND HR IN THE 60-70. PATIENT IS ON RA. PATIENT IS SL AND IV FLUSHES WELL. PATIENT IS AAOX3 AND USES CALL LIGHT APPROPRIATELY.
--- NOTE | 2019-04-23 06:06 | NUR ---
PATIENT IS RESTING IN BED. TOSHA NUNO IN TO TKAE VITALS. PATIENTS ICE ATER REFILLED. NO NEEDS NOTED. CALL LIGHT IN REACH.
--- NOTE | 2019-04-23 06:38 | NUR ---
PATIENTS MORNING MEDICATIONS GIVEN PER ORDER. PATIENTS BREAKFAST ORDER CALLED IN. NO FURTHER NEEDS NOTED. CALL LIGHT IN REACH.
--- NOTE | 2019-04-23 07:00 | NUR ---
BEDSIDE HANDOFF REPORT RECEIVED FROM ABSTRACT MANAGER RN WILBER. PT RESTING IN BED, PT SBA TO BATHROOM. PT DENIES OTHER NEEDS AT THIS TIME.
--- NOTE | 2019-04-23 08:35 | NUR ---
patient is sleeping
--- NOTE | 2019-04-23 08:54 | NUR ---
PT RESTING IN BED, FAMILY AT BEDSIDE, PLANNING FOR DISCHARGE LATER THIS AM. PT ON ROOM AIR, LUNG SOUNDS CLEAR, DENIES SOB. PT DENIES ABD PAIN, BOWEL TONES ACTIVE, BREAKFAST AT BEDSIDE. PT WITH EDEMA TO BLE, TRACE NONPITTING, CMS INTACT. IV SALINE LOCKED. PT GIVEN SCHEDULED PAIN MEDICATION, RATING PAIN 5/10. DISCUSSED PLAN OF CARE AND DISCHARGE WITH PT. PT DENIES OTHER NEEDS AT THIS TIME.
--- NOTE | 2019-04-23 09:10 | NUR ---
Spoke with Marzena. She is ready to dc this morning. Denies needs for equipment. LIves in RV next to house her children live in. Sister is here to take her home.
--- NOTE | 2019-04-23 11:30 | NUR ---
PT AMBULATED TO LOBBY WITH NURSE AIDE, SISTER TO DRIVE PT HOME.
== END 2019-04-23 11:30 | disposition home or self-care (01) | DRG 315 ==
LOC: ED 22:03 → CCU 04-22 01:02 → MS 04-22 21:22
PROVIDERS: ADMIT Internal Medicine
DX: I95.9 Hypotension, unspecified (principal); K90.9 Intestinal malabsorption, unspecified; E27.40 Unspecified adrenocortical insufficiency; R55 Syncope and collapse; E86.0 Dehydration; M79.7 Fibromyalgia; E03.9 Hypothyroidism, unspecified; Z98.84 Bariatric surgery status; Z79.891 Long term (current) use of opiate analgesic; Z79.899 Other long term (current) drug therapy
CPT/HCPCS: 36415; 51702; 70450; 72125; 80048; 80053; 81001; 82525; 82533; 82607; 82746; 83540; 83735; 84100; 84439; 84443; 84466; 84484; 84590; 85025; 85610; 85730; 93005; 93010; 99291; 99292; A9270; J2916; J3411; J3480; J7030; J7060

== ENCOUNTER 2020-02-03 14:35 | Emergency (ER) | payer OTHER ==
[~2020-02-03] VITALS: Ht 162.6 cm; Wt 70.8 kg
--- OUTSIDE RECORDS SUMMARY | ~2020-02-03 | XMS | Encounter Summary ---
Demographics + + + | Address | [address] | | | [place] [address] | + + + | Home Phone | | + + + | Preferred Language | Unknown | + + + | Marital Status | Single | + + + | Faith Affiliation | Unknown | + + + | Race | White | + + + | Ethnic Group | or | + + + Author + + + | Author | [facility] | + + + | Organization | [facility] | + + + | Address | Unknown | + + + | Phone | Unavailable | + + + Support + + +---------+ + | Name | Relationship | Address | Phone | + + +---------+ + | Amari Ryan | ECON | Unknown | | + + +---------+ + Care Team Providers + +------+ + | Care Business Unit Manager Name | Role | Phone | + +------+ + PCP | Unavailable | + +------+ + Encounter Details +--------+ + + + + | Date | Type | Department | Care Team | Description | +--------+ + + + + | 01/23/ | Document-Sc | Health Information | Unknown . | | | 2002 | anned | Services [id number] | | | | | | [address] | | | | | | Mailcode: [id number] | | | | | | [facility] | | | | | | [place], [place] | | | | | | [address] | | | | | | [phone] | | | +--------+ + + + + Social History + +-------+ +--------+------+ | Tobacco Use | Types | Packs/Day | Years | Date | | | | | Used | | + +-------+ +--------+------+ | Never Assessed | | | | | + +-------+ +--------+------+ + + + | Sex Assigned at | Date Recorded | | | | + + + | Not on file | | + + + documented as of this encounter Plan of Treatment Not on filedocumented as of this encounter Visit Diagnoses Not on filedocumented in this encounter"
--- OUTSIDE RECORDS SUMMARY | ~2020-02-03 | XMS | Encounter Summary ---
Demographics + + + | Address | [address] [place] [address] [place] | | | [place] [address] | + + + | Home Phone | | + + + | Preferred Language | Unknown | + + + | Marital Status | | + + + | Baptist Affiliation | Unknown | + + + | Race | White | + + + | Ethnic Group | Not or | + + + Author + + + | Author | [facility] | | | and [place] | + + + | Organization | [facility] | | | and [place] | + + + | Address | Unknown | + + + | Phone | Unavailable | + + + Support + + +---------+ + | Name | Relationship | Address | Phone | + + +---------+ + | Amari Ryan | ECON | Unknown | | + + +---------+ + Care Team Providers + +------+ + | Care Ordnance Handler Name | Role | Phone | + +------+ + PCP | Unavailable | + +------+ + Encounter Details +--------+ + + + + | Date | Type | Department | Care Team | Description | +--------+ + + + + | 12/25/ | Hospital | [facility] | | | | 2000 | Encounter | MED CTR XRAY [address] | | | | | | [place] | | | | | | [place] [address] | | | | | | [phone] | | | +--------+ + + + [...]
--- OUTSIDE RECORDS SUMMARY | ~2020-02-03 | XMS | Encounter Summary ---
Demographics + + + | Address | [address] [place] [address] [place] | | | [place] [address] | + + + | Home Phone | | + + + | Preferred Language | Unknown | + + + | Marital Status | | + + + | Islam Affiliation | Unknown | + + + | Race | White | + + + | Ethnic Group | Not or | + + + Author + + + | Author | [facility] | | | and [place] | + + + | Organization | [facility] | | [...] Team Providers + +------+ + | Care Sustainability Officer Name | Role | Phone | + +------+ + | Anil Olivo MD | PCP | | + +------+ + Reason for Visit +---------+--------+ + | Reason | Onset | Comments | | | Date | | +---------+--------+ + | No Show | 12/01/ | | | | 2020 | | +---------+--------+ + Encounter Details +--------+ + + + + | Date | Type | Department | Care Team | Description | +--------+ + + + + | 12/01/ | Telephone | [facility] | Anamaria Duenas | No Show | | 2020 | | SLEEP DISORDER [address] [place] | | | | [address] [place] | [address] [place] | | | | | [place] [address] | [place] [address] | | | | | [phone] | [phone] | | | | | | | | +--------+ + + [...] + + documented as of this encounter Miscellaneous Notes Telephone Encounter - Clementine Velasco Medical Assistant - 12/25/2019 8:44 AM PDTCalled the pa tient and left a message to call us back. This is my third attempt to reach the patient. I w ill send this note to Dr. Salomon.Electronically signed by Jasmyn Gallegos at 8:44 AM PDTTelephone Encounter - Clementine Velasco Medical Assistant - 12/11/2019 1:36 PM PDTCalled the patient and left a message to call us back. I will try back in a few days. elephone Encounter - Clementine Velasco Medical Assistant - 12/02/2019 2:23 PM PDTCalled the patient to jimmie ly her no show 11/27/[address] Salomon wants the patient to see KAREN Felder . I left a message to call us back. I will try back in a few days. Electronically si gned by Jasmyn Gallegos at 12/02/2019 2:24 PM PDTdocumented in this encounter Plan of Treatment Not on filedocumented as of this encounter Visit Diagnoses Not on filedocumented in this encounter"
--- OUTSIDE RECORDS SUMMARY | ~2020-02-03 | XMS | Clinical Summary ---
Demographics + + + | Address | [address] | | | [place] [address] | + + + | Home Phone | | + + + | Preferred Language | Unknown | + + + | Marital Status | Single | + + + | Orthodoxy Affiliation | Unknown | + + + [...] Team Providers + +------+ + | Care Cost And Sales Record Supervisor Name | Role | Phone | + +------+ + | No Pcp Per Patient | PCP | Unavailable | + +------+ + Source Comments THELMA is fully live on both [facility] Ambulatory and [facility] InPatient.[facility] Allergies No Known Allergies Medications + [...] on file | | + + + Last Filed Vital Signs + [...] Health Maintenance | Due Date | Last | Comments | | | | Done | | + + + + + | Influenza (Flu) | | 02/26/20 | | | vaccination (#1) | 9 | 11, | | | | | 06/09/20 | | | | | 09 | | + + + + + | Pneumococcal | Aged Out | | No longer eligible based on patient's age | | vaccination | | | to complete this topic | + + + + + [...] | BLUE CROSS BLUE | BCBS | [id number] | | [phone] | [address] | PPO | | SHIELD | OUT OF | 8 | 018-Pr | 8 | [address]6 | | | | STATE | | esent | | [place], | | | | | | | | [place] | | | | | | | | [phone] | | + +--------+ +--------+ + +------+ + +--------+ +--------+ + + | Guarantor Name | Accoun | Relation to | Date | Phone | Billing Address | | | t Type | Patient | of | | | | | | | | | | + +--------+ +--------+ + + | Marzena Romo | Person | Self [birth year] | [address] | | | al/Fam | | 1966 | [phone] | [place] | | | [place] | | | [address] (Home) | [address] | + +--------+ +--------+ + +"
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
--- OUTSIDE RECORDS SUMMARY | ~2020-02-03 | XMS | Encounter Summary ---
Demographics + + + | Address | [address] | | | [place] [address] | + + + | Home Phone | | + + + | Preferred Language | Unknown | + + + | Marital Status | Single | + + + | Shinto Affiliation | Unknown | + + + | Race | White | + + + | Ethnic Group | or | + + + Author + + + | Author | [facility] | + + + | Organization | [facility] | + + + | Address | Unknown | + + + | Phone | Unavailable | + + + Support + + +---------+ + | Name | Relationship | Address | Phone | + + +---------+ + | Amari Ryan | ECON | Unknown | | + + +---------+ + Care Team Providers + +------+ + | Care Plasma Processor Name | Role | Phone | + [...] [id number] | | | | | | [place], [place] | | | | | | [address] | | | | | | [phone] | | | +--------+ + + + [...]
--- OUTSIDE RECORDS SUMMARY | ~2020-02-03 | XMS | Encounter Summary ---
Demographics + + + | Address | [address] | | | [place] [address] | + + + | Home Phone | | + + + | Preferred Language | Unknown | + + + | Marital Status | Single | + + + | Confucianist Affiliation | Unknown | + + + [...] Phone | + + +---------+ + | Amair Ryan | ECON | Unknown | | + + +---------+ + Care Team Providers + +------+ + | Care Care Taker Name | Role | Phone | + [...] as of this encounter Progress Notes Interface, Pastry Mixer In - 01/19/2006 1:02 AM PDTCLINIC DATE: 04/01/2002 [facility] SUBJECTIVE: Mrs. 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 This is mainly a [...] surgery. [place] M.D. CD / HS [id number] / [id number] / [id number] / [id number] Tdocumented in this encounter Plan of Treatment Not on filedocumented as of this encounter Visit Diagnoses Not on filedocumented in this encounter"
--- OUTSIDE RECORDS SUMMARY | ~2020-02-03 | XMS | Clinical Summary ---
Demographics + + + | Address | [id number] [place] [address] [place] | | | [place] [address] | + + + | Home Phone | | + + + | Preferred Language | Unknown | + + + | Marital Status | | + + + | Hindu Affiliation | Unknown | + + + | Race | White | + + + | Ethnic Group | Not or | + + + Author + + + | Author | [facility] | | | and [place] | + + + | Organization | [facility] | | | and [...] Team Providers + +------+ + | Care Vegetable Ii Farmworker Name | Role | Phone | + +------+ + | Anil Olivo MD | PCP | | + +------+ + Allergies Not on File Medications Not on file Active Problems Not on file Encounters +--------+ + + + + | Date | Type | Specialty | Care Team | Description | +--------+ + + + + | 12/01/ | Telephone | Sleep Medicine | Anamaria Duenas | No Show | | 2020 | | | GRAY [place] | | +--------+ + + + + | 11/26/ | Office | Sleep Medicine | Amari Salomon | No-show for | | 2019 | Visit | | MD Yue | appointment (Primary | | | | | | Dx) | +--------+ + + + + from Last 3 Months Family History + + +------+ + | [...] + + + Last Filed Vital Signs Not on file Plan of Treatment + + + + + | Health Maintenance | Due Date | Last | Comments | | | | Done | | + + + + + | Hepatitis C | | | | | Screening | 4 | | | + + + + + | Vaccine: | | | | | Dtap/Tdap/Td (1 - | 3 | | | | Tdap) | | | | + + + + + | Cervical Cancer | | | | | Screening (Pap) | 4 | | | + + + + + | Colorectal Cancer | | | | | Screening | 4 | | | | (Colonoscopy) | | | | + + + + + | Vaccine: Zoster (1 | | | | | of 2) | 4 | | | + + + + + | Breast Cancer | | | | | Screening | 9 | | | + + + + + | Vaccine: Influenza | | 02/26/20 | | | (#1) | 0 | 11 | | + + + + + Results Not on filefrom Last 3 Months Insurance + +--------+ +--------+-------+---------+--------+ | Payer | Benefi | Subscriber | Effect | Phone | Address | Type | | | t Plan | ID | ladonna | | | | | | / | | Dates | | | | | | Group | | | | | | + +--------+ +--------+-------+---------+--------+ | [employer] | TRANSA | [id number] | | | | Indemn | | INSURANCE | MERICA | | [id number]-Pr | | | ity | | | LIFE | | esent | | | | | | [place] | | | | | | + +--------+ +--------+-------+---------+--------+ + +--------+ +--------+ + + | Guarantor Name | Accoun | Relation to | Date | Phone | Billing Address | | | t Type | Patient | of | | | | | | | | | | + +--------+ +--------+ + + | Marzena Romo | Person | Self [birth year] | [address] | | | al/Fam | | 1966 | [phone] | [place] | | | matias | | | 4 (Home) | [address] | + +--------+ +--------+ + + Advance Directives + + + + + | Type | Date Recorded | Patient | Explanation | | | | 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
--- OUTSIDE RECORDS SUMMARY | ~2020-02-03 | XMS | Encounter Summary ---
Demographics + + + | Address | [address] | | | [place] [address] | + + + | Home Phone | | + + + | Preferred Language | Unknown | + + + | Marital Status | Single | + + + | Christianity Affiliation | Unknown | + + + [...] Providers + +------+ + | Care Associate Research Scientist Name | Role | Phone | + [...]
--- OUTSIDE RECORDS SUMMARY | ~2020-02-03 | XMS | Encounter Summary ---
Demographics + + + | Address | [address] | | | [place] [address] | + + + | Home Phone | | + + + | Preferred Language | Unknown | + + + | Marital Status | Single | + + + | Jehovah'S Witness Affiliation | Unknown | + + + | Race | White | + + + | Ethnic Group | or | + + + Author + + + | Author | [facility] | + + + | Organization | [facility] | + + + | Address | Unknown | + + + | Phone | Unavailable | + + + Support + + +---------+ + | Name | Relationship | Address | Phone | + + +---------+ + | Amari Ryan | ECON | Unknown | | + + +---------+ + Care Team Providers + +------+ + | Care Sfdc Developer Name | Role | Phone | + +------+ + PCP | Unavailable | + +------+ + Encounter Details +--------+ + + + + | Date | Type | Department | Care Team | Description | +--------+ + + + + | 07/11/ | Results | NON-[facility] EPIC | Cyndee Aguirre MD | | | 2010 | Only | Department | [facility] | | | | | | Health Dept [address] | | | | | | [address] [facility], | | | | | | [place] [address] | | | | | | [phone] | | | | | | | [...] | + +--------+ + + + | ABDOMEN 1 VIEW [id number] | Routin | 07/11/2010 | | Results for this | | | e | 10:42 AM | | procedure are in the | | | | PST | | results section. | + +--------+ + + + | CBC W/DIFF, REFLEX | Routin | 07/11/2010 | | Results for this | | | e | 9:20 AM | | procedure are in the | | | | PST | | results section. | + +--------+ + + + | UA, DIPSTICK ONLY | Routin | 07/11/2010 | | Results for this | | | e | 9:20 AM | | procedure are in the | | | | PST | | results section. | + +--------+ + + + | COMPLETE METABOLIC | Routin | 07/11/2010 | | Results for this | | SET | e | 9:20 AM | | procedure are in the | | (NA,K,CL,CO2,BUN,CRE | | PST | | results section. | | AT,GLUC,CA,AST,ALT,B | | | | | | ESTRELLA TOTAL,ALK | | | | | | PHOS,ALB,PROT TOTAL) | | | | | + +--------+ + + + documented in this encounter Results ABDOMEN 1 VIEW [id number] (07/11/2010 10:42 AM PST) + + | Specimen | + + | | + + + + + | Narrative | Performed At | + + + | Exam: Abdomen, one-view. Indication: 44-year female with | [facility] | | abdominal pain. Looking for air in soft tissues. Patient had | DEPARTMENT OF | | cosmetic abdominal wall surgeries in [place]. Comparison: No | RADIOLOGY | | priors. Findings: Supine KUB and crosswise film of the pelvis were | | | obtained. There is large amount of stool in the colon to the rectum. | | | There are no signs of bowel obstruction, ileus or pneumoperitoneum. | | | No unusual soft tissue gas collections are apparent in AP | | | projection. The possibility of soft tissue gas in the anterior | | | abdominal wall can be further assessed by shoot through lateral film | | | and/or CT imaging, if clinically indicated. Degenerative changes in | | | hips and spine are noted. There is question of faint surgical | | | sutures in the right upper quadrant, along the 12th rib. Impression: | | | Increased colonic stool. No suspicious gas collections are | | | visible in AP projection. Please see above. I discussed this case | | | with Dr. Cyndee Aguirre. | | + + + + + | Procedure Note | + + | Interface, Radiology Results - 01/23/2015 12:10 PM PDT Exam: Abdomen, one-view. | | Indication: 44-year female with abdominal pain. Looking for air in | | soft tissues. Patient had cosmetic abdominal wall surgeries in | | [place]. | | Comparison: No priors. | | Findings: Supine KUB and crosswise film of the pelvis were obtained. | | There is large amount of stool in the colon to the rectum. There | | are no signs of bowel obstruction, ileus or pneumoperitoneum. No | | unusual soft tissue gas collections are apparent in AP projection. | | The possibility of soft tissue gas in the anterior abdominal wall can | | be further assessed by shoot through lateral film and/or CT imaging, | | if clinically indicated. Degenerative changes in hips and spine are | | noted. There is question of faint surgical sutures in the right | | upper quadrant, along the 12th rib. | | Impression: Increased colonic stool. No suspicious gas | | collections are visible in AP projection. Please see above. | | I discussed this case with Dr. Cyndee Aguirre. | + + + +---------+ + + | Performing | Address | City/State[facility] | Phone Number | | Organization | | | | + +---------+ + + | [facility] DEPARTMENT OF | | | | | RADIOLOGY | | | | + +---------+ + + CBC W/DIFF, REFLEX (07/11/2010 9:20 AM PST) + + + + + + | Component | Value | Ref Range | Performed | Pathologist | | | | | At | Signature | + + + + + + | WHITE BLOOD | 5.0 | 4.3 - 11.0 X10 | [facility] | | | CELL COUNT | | 3/ul | A MEDICAL | | | | | | CENTER | | + + + + + + | HEMOGLOBIN | 9.2 (L) | 12.0 - 16.0 | [facility] | | | | | g/dL | A MEDICAL | | | | | | CENTER | | + + + + + + | RED BLOOD | 3.37 (L) | 4.2 - 5.4 X10 | [facility] | | | CELL COUNT | | 6/uL | A MEDICAL | | | | | | CENTER | | + + + + + + | HEMATOCRIT | 28.0 (L) | 38.0 - 47.0 % | [facility] | | | | | | A MEDICAL | | | | | | CENTER | | + + + + + + | MCV | 83.0 | 82 - 100 fl | [facility] | | | | | | A MEDICAL | | | | | | CENTER | | + + + + + + | MCH | 27.2 (L) | 28.0 - 32.0 pg | [facility] | | | | | | A MEDICAL | | | | | | CENTER | | + + + + + + | MCHC | 32.8 | 32 - 36 g/dL | [facility] | | | | | | A MEDICAL | | | | | | CENTER | | + + + + + + | RDW | 14.1 | 12 - 15 fL | [facility] | | | | | | A MEDICAL | | | | | | CENTER | | + + + + + + | PLATELET | 261 | 150 - 450 X10 3 | [facility] | | | COUNT | | | A MEDICAL | | | | | | CENTER | | + + + + + + | MPV | 7.6 (L) | 9.0 - 12.0 fL | [facility] | | | | | | A MEDICAL | | | | | | CENTER | | + + + + + + | NEUTROPHIL | 79.8 | 40 - 80 % | [facility] | | | % | | | A MEDICAL | | | | | | CENTER | | + + + + + + | LYMPHOCYTE | 15.3 (L) | 20 - 50 % | [facility] | | | % | | | A MEDICAL | | | | | | CENTER | | + + + + + + | EOS % | 1.1 | 0 - 5 % | [facility] | | | | | | A MEDICAL | | | | | | CENTER | | + + + + + + | BASO % | 0.5 | 0 - 1 % | [facility] | | | | | | A MEDICAL | | | | | | CENTER | | + + + + + + | MONOCYTE % | 3.3 | 2 - 10 % | [facility] | | | | | | A MEDICAL | | | | | | CENTER | | + + + + + + | BANDS % | FARMWORKER ANIMAL | 0 - 7 % | [facility] | | | | | | A MEDICAL | | | | | | CENTER | | + + + + + + + + | Specimen | + + | | + + + + + + + | Performing | Address | City/State/Zipcode | Phone Number | | Organization | | | | + + + + + | [facility] | | | | | LABORATORY | | | | + + + + + | [facility] | And | [place], [place] | | | [facility] [place] | [address] | [address] | | + + + + + UA, DIPSTICK ONLY (07/11/2010 9:20 AM PST) + + + + + + | Component | Value | Ref Range | Performed | Pathologist | | | | | At | Signature | + + + + + + | COLOR(UR) | YELLOW | YELLOW | [facility] | | | | | | A MEDICAL | | | | | | CENTER | | + + + + + + | APPEARANCE | CLEAR | CLEAR | [facility] | | | | | | A MEDICAL | | | | | | CENTER | | + + + + + + | SPECIFIC | 1.019 | 1.005 - 1.030 | [facility] | | | GRAVITY | | | A MEDICAL | | | | | | CENTER | | + + + + + + | PH(UR) | 5.5 | 5.0 - 8.0 | [facility] | | | | | | A MEDICAL | | | | | | CENTER | | + + + + + + | PROTEIN, UA | NEG | NEGATIVE | [facility] | | | | | | A MEDICAL | | | | | | CENTER | | + + + + + + | GLUCOSE, UA | NEG | NEGATIVE | [facility] | | | | | | A MEDICAL | | | | | | CENTER | | + + + + + + | KETONES, UA | NEG | NEGATIVE | [facility] | | | | | | A MEDICAL | | | | | | CENTER | | + + + + + + | BILIRUBIN | NEG | NEGATIVE | [facility] | | | | | | A MEDICAL | | | | | | CENTER | | + + + + + + | BLOOD | 1+ | NEGATIVE | [facility] | | | | | | A MEDICAL | | | | | | CENTER | | + + + + + + | NITRITES | NEG | NEGATIVE | [facility] | | | | | | A MEDICAL | | | | | | CENTER | | + + + + + + | LEUKOCYTE | NEG | NEGATIVE | [facility] | | | ESTERASE | | | A MEDICAL | | | | | | CENTER | | + + + + + + | UROBILINOGE | NORMAL | NORMAL MG/DL | [facility] | | | N | | | A MEDICAL | | | | | | CENTER | | + + + + + + | WHITE CELLS | 0-2 | 0 - 2 HPF | [facility] | | | | | | A MEDICAL | | | | | | CENTER | | + + + + + + | RED CELLS | 0-3 | 0 - 3 HPF | [facility] | | | | | | A MEDICAL | | | | | | CENTER | | + + + + + + | EPITHELIAL | FEW | RARE-MOD LPF | [facility] | | | CELLS | | | A MEDICAL | | | | | | CENTER | | + + + + + + | BACTERIA | NEG | NEG HPF | [facility] | | | | | | A MEDICAL | | | | | | CENTER | | + + + + + + | OTHER | NEG | | [facility] | | | | | | A MEDICAL | | | | | | CENTER | | + + + + + + | SOURCE | CLEAN CATCH | | [facility] | | | | | | A MEDICAL | | | | | | CENTER | | + + + + + + + + | Specimen | + + | | + + + + + + + | Performing | Address | City/State/Zipcode | Phone Number | | Organization | | | | + + + + + | [facility] | | | | | LABORATORY | | | | + + + + + | [facility] | And | [place], [place] | | | [facility] | [facility] | [address] | | + + + + + COMPLETE METABOLIC SET (NA,K,CL,CO2,BUN,CREAT,GLUC,CA,AST,ALT,BILI TOTAL,ALK PHOS,ALB,PROT TOTAL) (07/11/2010 9:20 AM PST) + + + + + + | Component | Value | Ref Range | Performed | Pathologist | | | | | At | Signature | + + + + + + | SODIUM, | 139 | 137 - 146 MEQ/L | [facility] | | | PLASMA | | | A MEDICAL | | | (LAB) | | | CENTER | | + + + + + + | POTASSIUM, | 2.9Comment: @Avg | 3.5 - 5.2 MEQ/L | [facility] | | | PLASMA | 2.92,2.93 = 2.93 | | A MEDICAL | | | (LAB) | 07/11/10 0950 | | CENTER | | | | LA.[email or web address]@THIS IS A | | | | | | CRITICAL VALUE AND MUST | | | | | | BE CALLED TO THE DR@OP | | | | | | OR THE NURSING MODULE | | | | | | AND THE NURSE TAKING | | | | | | CARE OF@PATIENT IF IP. | | | | | | DOCUMENT THE CALL BY | | | | | | COMPLETING THE | | | | | | F@LINE.@RESULT CALLED | | | | | | [address] | | | | | | DR AGUIRRE | | | | + + + + + + | CO2 | 23 | 22 - 28 MEQ/L | [facility] | | | | | | A MEDICAL | | | | | | CENTER | | + + + + + + | CHLORIDE, | 110 (H) | 98 - 106 MEQ/L | [facility] | | | PLASMA | | | A MEDICAL | | | (LAB) | | | CENTER | | + + + + + + | GLUCOSE, | 79 | 70 - 105 MG/DL | [facility] | | | PLASMA | | | A MEDICAL | | | (LAB) | | | CENTER | | + + + + + + | BUN, PLASMA | 13 | 8 - 30 MG/DL | [facility] | | | (LAB) | | | A MEDICAL | | | | | | CENTER | | + + + + + + | CREATININE | 0.72 | 0.6 - 1.1 MG/DL | [facility] | | | PLASMA | | | A MEDICAL | | | (LAB) | | | CENTER | | + + + + + + | BUN/CREATIN | 18 | 6 - 20 RATIO | [facility] | | | INE RATIO | | | A MEDICAL | | | | | | CENTER | | + + + + + + | CALCIUM, | 7.8 (L) | 8.5 - 10.8 | [facility] | | | PLASMA | | MG/DL | A MEDICAL | | | (LAB) | | | CENTER | | + + + + + + | AST(SGOT) | 20 | 10 - 41 U/L | [facility] | | | | | | A MEDICAL | | | | | | CENTER | | + + + + + + | ALT (SGPT) | 18 | 7 - 51 U/L | [facility] | | | | | | A MEDICAL | | | | | | CENTER | | + + + + + + | ALK PHOS | 66 | 40 - 180 U/L | [facility] | | | | | | A MEDICAL | | | | | | CENTER | | + + + + + + | TOTAL | 6.0 (L) | 6.7 - 8.5 G/DL | [facility] | | | PROTEIN, | | | A MEDICAL | | | PLASMA | | | CENTER | | | (LAB) | | | | | + + + + + + | ALBUMIN, | 3.0 (L) | 3.5 - 5.0 G/DL | [facility] | | | PLASMA | | | A MEDICAL | | | (LAB) | | | CENTER | | + + + + + + | BILIRUBIN | 0.2 | 0.2 - 1.6 MG/DL | [facility] | | | TOTAL | | | A MEDICAL | | | | | | CENTER | | + + + + + + | ESTIMATED | >60.0 | >60 | [facility] | | | GFR | | | A MEDICAL | | | | | | CENTER | | + + + + + + | FASTING? | UNK | HR | [facility] | | | | | | A MEDICAL | | | | | | CENTER | | + + + + + + + + | Specimen | + + | | + + + + + + + | Performing | Address | City/State/Zipcode | Phone Number | | Organization | | | | + + + + + | [facility] | | | | | LABORATORY | | | | + + + + + | [facility] | And | [place] | | | [facility] | [facility] | [address] | | + + + + + documented in this encounter Visit Diagnoses Not on filedocumented in this encounter"
--- OUTSIDE RECORDS SUMMARY | ~2020-02-03 | XMS | Encounter Summary ---
Demographics + + + | Address | [address] | | | [place] [address] | + + + | Home Phone | | + + + | Preferred Language | Unknown | + + + | Marital Status | Single | + + + | Tenriism Affiliation | Unknown | + + + | Race | White | + + + | Ethnic Group | or | + + + Author + + + | Author | [facility] | + + + | Organization | [facility] | + + + | Address | Unknown | + + + | Phone | Unavailable | + + + Support + + +---------+ + | Name | Relationship | Address | Phone | + + +---------+ + | Amari Ryan | ECON | Unknown | | + + +---------+ + Care Team Providers + +------+ + | Care Manager Medical Device Name | Role | Phone | + [...] (care | | 2019 | | [facility] | Rheumatology | everywhere query ) | | | | [address] | | | | | | [address] [facility] | | | | | | [place], [address] | | | | | | [place], [place] | | | | | | [address] | | | | | | [phone] | | | +--------+ + + + [...]
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
--- OUTSIDE RECORDS SUMMARY | ~2020-02-03 | XMS | Encounter Summary ---
Demographics + + + | Address | [address] | | | [place] [address] | + + + | Home Phone | | + + + | Preferred Language | Unknown | + + + | Marital Status | Single | + + + | Synagogue Affiliation | Unknown | + + + | Race | White | + + + | Ethnic Group | or | + + + Author + + + | Author | [facility] | + + + | Organization | [facility] | + + + | Address | Unknown | + + + | Phone | Unavailable | + + + Support + + +---------+ + | Name | Relationship | Address | Phone | + + +---------+ + | Amari Ryan | ECON | Unknown | | + + +---------+ + Care Team Providers + +------+ + | Care Inseamer Name | Role | Phone | + +------+ + | No Pcp Per Patient | PCP | Unavailable | + +------+ + Reason for Referral Occupational Therapy (Routine) +--------+--------+ + + + [...] | | Fibromyalgia | Steph Claros, | Evan Pastor | | | | | Procedures | STEAM TENDER [address] | for Health | | | | | | [address] | and Healing, | | | | | OCCUPATIONAL | [address] | [address], | | | | | THERAPY | [facility] [place] | 1st Floor | | | | | REFERRAL | [address] | [place], [place] | | | | | | Phone: | [phone] | | | | | | [phone] | Phone: | | | | | | Fax: | [phone] | | | | | | [phone] | Fax: | | | | | | | [phone] | +--------+--------+ + + + + Physical Therapy (Routine) +--------+--------+ + + + + | Status | Reason | Specialty | Diagnoses / | Referred By | Referred To | | | | | Procedures | Contact | Contact | +--------+--------+ + + + + | Closed | | Physical | Diagnoses | | [facility] | | | | Therapy | | Sabino, | [address] | | | | | Fibromyalgia | Steph Claros, | [facility] | | | | | Procedures | STEAM TENDER [address] | for Health | | | | | PHYSICAL | [address] | and Healing, | | | | | THERAPY | [address] | [address], | | | | | REFERRAL | [place], [place] | [facility] Floor | | | | | | [address] | [place], [place] | | | | | | Phone: | [phone] | | | | | | [phone] | Phone: | | | | | | Fax: | [phone] | | | | | | [phone] | Fax: | | | | | | | [phone] | +--------+--------+ + + + + Reason for Visit [...] | Rheumatology | Diagnoses | Geovani, | Rhm | | | | | | Anil Diaz, | Fibromyalgia | | | | | Fibromyalgia | MD [address] | [facility] | | | | | | [place] | [address] | | | | | | [address] | Physician's | | | | | | [place], | [place], | | | | | | [place] [address] | [facility] floor | | | | | | Phone: | [place], [place] | | | | | | [phone] | [address] | | | | | | Fax: | Phone: | | | | | | [phone] | [phone] | | | | | | | Fax: | | | | | | | [phone] | + +--------+ + + + + Encounter Details +--------+---------+ + + + | Date | Type | Department | Care Team | Description | +--------+---------+ + + + | 10/24/ | Office | Rheumatology at | Clinic, [facility] [address] | Fibromyalgia | | 2019 | Visit | [facility] | Fibromyalgia [address] | (Primary Dx); | | | | [address] | [address] [facility] | Non-restorative | | | | [address] | Road [place], [place] | sleep; Vitamin D | | | | Pavilion, 4th floor | [address] | deficiency; | | | | [place], [place] | | Trochanteric | | | | [address] | | bursitis of both | | | | [phone] | | hips | +--------+---------+ + + [...] encounter Patient Instructions Patient Instructions Steph Gallo, STEAM TENDER - 10/24/2018 1:30 PM PDT 1. TENS [...] are, in fact, subjective... Website's: Www.myalgia.com Www.myalgiateam.com Http://fibroguide.med.[facility]/fibroguide.html Program features 10 modules: Understanding Fibromyalgia Being Active Sleep Relaxation Time for You Setting Goals Pacing Yourself (Task Player Radha) Thinking Differently Communicating Fibro Fog Www.Conclusive Analytics.Conduit Brain games and brain training Coaching: http://Coreworx.Conduit/ On-line exercise program recommendations (Youtube): Warm up Exercise for Fibromyalgia [facility] for Fibromyalgia Restorative Chair Yoga for Chronic Pain Sleepy [facility] Fibromyalgia Pain Relief Stretching Program: Gentle but Effective physicaltherapyvideo 3 mins Qi Gong Exercise Workout Routine for Fibromyalgia Pain Relief - Qi Gong [facility] QiGongTV - QiGong Chi School Qigong for Seniors - Sitting Version relaxedandalert Local support groups: [facility] Fibromyalgia,Chronic Pain, Chronic Fatigue Support Group Address: Meets At [facility], [address] [place] [address] Books: "Fibromyalgia: Woman's Tool Kit" by Donna Monique and Eduardo Darling. "Take Back Your Life: Find Hope And [place] From Fibromyalgia Symptoms And Pain" by Bambi Chen. "The FibroManual: A Complete Fibromyalgia Treatment Guide [...] explain the pain and other symptoms Source: [place] [employer], 2010 How is fibromyalgia [...] use of an opioid narcotic is needed. Tzrc-udt-eorclgt medicines such as acetaminophen (Tylenol) or nonsteroidal [...] caused you r illness. Additional Information The [place] [employer] has compiled this list to give you a starting point fo r your own additional research. The ACR does not endorse or maintain these websites and is n ot responsible for any information or claims provided on them. It is always best to talk wit h your vice president supply chain for more information and before making any decisions about your care. National [place] of Arthritis and Musculoskeletal and Skin Diseases National Fibromyalgia Association National Fibromyalgia and Chronic Pain Association National Fibromyalgia Partnership, Inc. The [place] [employer] Fibromyalgia Syndrome Association, Inc. Trochanteric Bursitis: Exercises [...] 4. Repeat 2 to 4 times. Double ttis-bt-epiwc 1. Lie on your back with your [...] about "Trochanteric Bursitis: Exercises", log into your ZhongSou account at tp://www.[facility]/panOpen. You can enter N503 in the "[employer] Library" search box. Not on ZhongSou? Review the [place], Inchart section of your After Visit Summary for directions on triston ricketts to sign up. Current as of: March 01, 2018 Content Version: 11.9 7870-7827 [employer]. Care instructions adapted under license by [facility] [employer]. If you have questions about a medical condition or this instr uction, always ask your healthcare professional. [employer] disclaims any stefanie anty or liability for your use of this information. documented in this encounter Progress Notes Steph Gallo FNP - 10/24/2018 1:30 PM PDTFormatting of this note might be differe nt from the original. . New Fibromyalgia Patient Consult: This patient was referred by: Anil Olivo MD [facility] [address] [address], . Your patient, Ms. Romo, a 52 y.o. female, was evaluated in the [facility] on October 23, 2018. This evaluation consisted of a fibromyalgia focused history and limited ph ysical examination, psychosocial assessment with focus on education and counselling regardin g diagnosis, treatment options, self-care measures, expectations and prognosis. Travelling from [place], [place] History of Current Problem: Ms. Romo [...] s that she drinks alcohol. Work History: [employer] part-time and "disabled." Medico-Legal: No pending [...] of further assistance. KAREN HENNING RHEUMATOLOGY FACULTY [facility] Psychiatric Mailcode: Op09 [address] [address] documented in t his encounter Plan of [...]
--- OUTSIDE RECORDS SUMMARY | ~2020-02-03 | XMS | Encounter Summary ---
Demographics + + + | Address | [address] | | | [place] [address] | + + + | Home Phone [...] + + + | Author | [facility] | + + + | Organization | [facility] | + + + | Address | Unknown | + + + | Phone | Unavailable | + + + Support + + +---------+ + | Name | Relationship | Address | Phone | + + +---------+ + | Amari Ryan | ECON | Unknown | | + + +---------+ + Care Team Providers + +------+ + | Care Data Entry Representative Name | Role | Phone | + +------+ + | No Pcp Per Patient | PCP | Unavailable | + +------+ + Reason for Visit Physical Therapy (Routine) +--------+--------+ + + + [...] | Fibromyalgia | Steph Claros, | [place] | | | | | Procedures | PERFORMANCE IMPROVEMENT COORDINATOR [address] | for Health | | | | | PHYSICAL | [address] | and Healing, | | | | | THERAPY | [address] | [address], | | | | | REFERRAL | [place], [place] | 1st Floor | | | | | | [address] | [place], [place] | | | | | | Phone: | [phone] | | | | | | [phone] | Phone: | | | | | | Fax: | [phone] | | | | | | [phone] | Fax: | | | | | | | [phone] | +--------+--------+ + + + + Encounter Details +--------+---------+ + + + | Date | Type | Department | Care Team | Description | +--------+---------+ + + + | 10/24/ | Office | Rehabilitation | Nohemi Cardozo, PT | Fibromyalgia | | 2019 | Visit | Services at [facility] | [address] | (Primary Dx) | | | | [address] | [address] [place], | | | | | Loop Physician's | [place] [address] | | | | | [place], 4th floor | [phone] | | | | | [place], [place] | | | | | | [address] | | | | | | [phone] | | | +--------+---------+ + + + [...] Payor: BLUE CROSS BLUE SHIELD / Plan: [facility] OUT OF STATE / Product Type: PPO / Non-Medicare [facility] PHYSICAL THERAPY EVALUATION No past medical history [...] and turned quickly back. Precautions: Hx of DE 2012 d/t cysts. Fear of falling on [...] if needed. 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 Living situation: Marzena currently lives [...] will demonstrate understanding of knowledge of pain compensation/records management coordinator niques to decrease pain and increase function. [...] determine plan of care and implement c yanira Moderate - Moderate complexity Complexity: Moderate - 01719 The patient requires services that can be [...] status. NOHEMI CARDOZO, PT [facility] AT [facility] Scheduled Appointment time: 12:30 PM Treatment began: [...] Fibromyalgia Next progress report 12/23/2018 Insurance: Payor: [employer] / Plan: BCBS OUT OF STATE / [...] | + +--------+ + + + | MA THERAPEUTIC | Routin | 10/24/2018 | Fibromyalgia [...]
--- OUTSIDE RECORDS SUMMARY | ~2020-02-03 | XMS | Encounter Summary ---
Demographics + + + | Address | [address] [place] [address] [place] | | | [place] [address] | + + + | Home Phone | | + + + | Preferred Language | Unknown | + + + | Marital Status | | + + + | Scientology Affiliation | Unknown | + + + | Race | White | + + + | Ethnic Group | Not or | + + + Author + + + | Author | [facility] | | | and [place] | + + + | Organization | [facility] | | | and [...] Team Providers + +------+ + | Care Collection Development Librarian Name | Role | Phone | + +------+ + | Anil Olivo MD | PCP | | + +------+ + Reason for Visit Evaluate & Treat (Routine) +--------+--------+ + + + + | Status | Reason | Specialty | Diagnoses / | Referred By | Referred To | | | | | Procedures | Contact | Contact | +--------+--------+ + + + + | Closed | | Internal | Diagnoses | Geovani, | Aime | | | | Medicine - | Obstructive | Anil | Amari Huber | | | | Sleep | sleep apnea | MD Renu | MD [address] | | | | Medicine / | (adult) | [address] | | | | Sleep | (pediatric) | [address] | [address] | | | | Medicine | CONSULT PW | [place], | [place] | | | | | [address] | [place] [address] | [address] Phone: | | | | | CPAP--NOTES | Phone: | [phone] | | | | | IN DRAWER | [phone] | Fax: | | | | | Procedures | Fax: | [phone] | | | | | NEW PATIENT | [phone] | | +--------+--------+ + + + + Encounter Details +--------+---------+ + + + | Date | Type | Department | Care Team | Description | +--------+---------+ + + + | 11/26/ | Office | [facility] | Amari Salomon | No-show for | | 2020 | Visit | SLEEP DISORDER [address] | [address] | appointment (Primary | | | | [address] [place] | [address] | Dx) | | | | [place] [address] | [place] [address] | | | | | [phone] | [phone] | | | | | | | | +--------+---------+ + + + [...] documented as of this encounter Progress Notes Amari Salomon Jr., MD - 11/27/2019 10:00 AM PDTNo show documented in this encounter Plan of Treatment Not on filedocumented as of this encounter Visit Diagnoses + + | Diagnosis | + + | No-show for appointment - Primary | + + documented in this encounter"
[~2020-02-03 14:35] MED LIST changes: +GABAPENTIN300 MG PO; +NEURONTIN300 MG PO
--- OUTSIDE RECORDS SUMMARY | 2020-02-03 14:38 | XMS ---
PreManage Notification: TERESA CHERRY Security Control Specialist Events No recent Security Events currently on file CRITERIA MET - PDMP CARE PROVIDERS [facility] 04/22/2019-Current PHONE: [phone] Laura has no Care Guidelines for this patient. E.Mitesh VISIT COUNT (12 MO.) 2 JOHANN Rizvi TOTAL 2 NOTE: Visits indicate total known visits. ED/UCC VISIT TRACKING (12 MO.) 02/03/2020 14:35 [facility] [place] TYPE: Emergency COMPLAINT: - LOW BP, WEAKNESS 04/21/2019 22:04 [facility] [place] TYPE: Emergency COMPLAINT: - POSS STROKE INPATIENT VISIT TRACKING (12 MO.) 04/22/2019 01:02 [facility] [place] TYPE: Medical Surgical COMPLAINT: - HYPOTENSION DIAGNOSES: - Bariatric surgery status - Hypothyroidism, unspecified - Other rodent exterminator (current) drug therapy - Dehydration - Syncope and collapse - Fibromyalgia - Fibromyalgia - Hypotension, unspecified - Intestinal malabsorption, unspecified - snf (current) use of opiate analgesic - Unspecified adrenocortical insufficiency - Hypothyroidism, unspecified - Bariatric surgery status - terminal gauger (current) use of opiate analgesic - Syncope and collapse - Intestinal malabsorption, unspecified - Other chcf (current) drug therapy - Unspecified adrenocortical insufficiency - Dehydration [email or web address]
[2020-02-03] MEDS ORDERED: BENADRYL25 MG PO (15:10)
--- NOTE | 2020-02-04 11:00 | EKG ---
[facility] [address] [place], [place] [address] Signed Sinus bradycardia Cannot rule out Anterior infarct (cited on or before 21-APR-2019) Abnormal ECG When compared with ECG of 21-APR-2019 22:25, No significant change was found Confirmed by ORACIO BALLARD MD ([id number]) on 02/04/2020 11:00:20 AM Electronically Signed By: ORACIO BALLARD MD 02/04/20 1100 PATIENT NAME: TERESA CHERRY Electrocardiogram DATE OF : 61 PHYSICIAN: ORACIO BALLARD MD REPORT #: [id number] REPORT IS CONFIDENTIAL AND NOT TO BE RELEASED WITHOUT AUTHORIZATION
== END 2020-02-03 18:07 | disposition home or self-care (01) ==
LOC: ED 14:35
DX: I95.1 Orthostatic hypotension (principal); E86.9 Volume depletion, unspecified; K52.9 Noninfective gastroenteritis and colitis, unspecified; Z79.899 Other long term (current) drug therapy
CPT/HCPCS: 80053; 83735; 84484; 85025; 93005; 93010; 96360; 99284-25; J7030

== ENCOUNTER 2021-03-23 07:11 | Emergency (ER) | payer OTHER ==
[~2021-03-23] VITALS: Ht 162.6 cm; Wt 63.5 kg
[~2021-03-23 07:11] MED LIST changes: +BENADRYL25 MG PO; +CLINDAMYCIN HC300 MG PO; +FLUDROCORTISON0.1 MG PO; +HYDROCORTISONE10 MG PO; +RENA-VITE RX T1 EACH PO
--- OUTSIDE RECORDS SUMMARY | 2021-03-23 07:14 | XMS ---
PreManage Notification: TERESA CHERRY Security Front Office Secretary Events No recent Security Events currently on file CRITERIA MET - [facility] - 2 Visits in 30 Days CARE PROVIDERS JACOB [facility] 04/22/2019-Current PHONE: [phone] Laura has no Care Guidelines for this patient. Ynes VISIT COUNT (12 MO.) 2 [facility] TOTAL 2 NOTE: Visits indicate total known visits. ED/UCC VISIT TRACKING (12 MO.) 03/23/2021 07:12 [facility] [place] TYPE: Emergency COMPLAINT: - L HAND PAIN 03/22/2021 14:15 [facility] [place] TYPE: Emergency COMPLAINT: - L HAND INJURY INPATIENT VISIT TRACKING (12 MO.) No inpatient visits to display in this time frame [email or web address]
== END 2021-03-23 17:40 | disposition short-term general hospital (02) ==
LOC: ED 07:11
DX: L03.114 Cellulitis of left upper limb (principal); M65.842 Other synovitis and tenosynovitis, left hand; M79.10 Myalgia, unspecified site; Z20.822 Contact with and (suspected) exposure to COVID-19; Z23 Encounter for immunization; Z79.899 Other long term (current) drug therapy
CPT/HCPCS: 80053; 80500; 83605; 85025; 87040; 90471; 90715; 96365; 96376; 99284-25; C9803; J0295; U0003

== ENCOUNTER 2021-06-29 20:34 | Inpatient (IN) | payer BC, OTHER ==
[~2021-06-29] VITALS: Ht 162.6 cm; Wt 71.2 kg
--- OUTSIDE RECORDS SUMMARY | 2021-06-29 20:36 | XMS ---
PreManage Notification: TERESA CHERRY Security Supervisor Unloading Events No recent Security Events currently on file CRITERIA MET - PDMP CARE PROVIDERS JAC[facility] Current PHONE: Unknown Laura has no Care Guidelines for this patient. E.[facility] VISIT COUNT ([address] [facility] TOTAL 4 NOTE: Visits indicate total known visits. ED/UCC VISIT TRACKING (12 MO.) 06/29/2021 20:35 [facility] [place] TYPE: Emergency COMPLAINT: - DIZZINESS, FLU SYMPTOMS 04/07/2021 17:59 [facility] [place] TYPE: Emergency DIAGNOSES: - Unspecified open wound of unspecified finger without damage to nail, initial encounter - wound check 03/23/2021 07:12 [facility] [place] TYPE: Emergency COMPLAINT: - L HAND PAIN DIAGNOSES: - Local infection of the skin and subcutaneous tissue, unspecified - Other nursing home (current) drug therapy - Cellulitis of left upper limb - Encounter for immunization - Myalgia, unspecified site - Other synovitis and tenosynovitis, left hand 03/22/2021 14:15 [facility] [place] TYPE: Emergency COMPLAINT: - L HAND INJURY DIAGNOSES: - Contact with other sharp object(s), not elsewhere classified, initial encounter - Disorder of kidney and ureter, unspecified - Other manager intermediate (current) drug therapy - Unspecified open wound of left middle finger without damage to nail, initial encounter - Civilian activity done for income or pay - Myalgia, unspecified site - Unspecified injury of left wrist, hand and finger(s), initial encounter - Cellulitis of left finger INPATIENT VISIT TRACKING (12 MO.) 04/07/2021 17:59 [facility] [place] TYPE: Surgery DIAGNOSES: - Unspecified open wound of unspecified finger without damage to nail, initial encounter 03/23/2021 20:16 [facility] [place] TYPE: Surgery DIAGNOSES: - Abscess on third digit L hand - Synovitis and tenosynovitis, unspecified [email or web address]
[2021-06-29] MEDS ORDERED: MELOXICAM15 MG PO (21:12)
[2021-06-29] MEDS ORDERED: LIOTHYRONINE SO5 MCG PO (21:13)
[2021-06-29] MEDS ORDERED: VITAMIN D325 GM MISC (21:16)
--- NOTE | 2021-06-30 03:05 | NUR ---
pt having frequent loose stools, stool occult test done at bedside, positive for blood, Dr Barrios notified. pt currently infusing 1 of 2 PRBC. pt denies dizziness or hallucinations at the moment. vitals stable, will continue to closely monitor
--- NOTE | 2021-06-30 03:30 | NUR ---
PT RECIEVING SECOND UNIT OF PRBC, RN WITH PT AT BEDSIDE DURING FIRST 15 MINUTES, SECOND RN CHECK DONE WITH GAMALIEL PEARL. PT APPEARS COMFORTABLE IN BED, NO SIGNS OF REACTION, LUNGS CLEAR, VITALS WNL. PT APPEARS LESS PALE THAN WHEN ADMITTED HOWEVER STOOL OCCULT WAS POSITIVE. WILL CHECK H/H LEVEL WITH AM LABS.
--- NOTE | 2021-06-30 05:26 | NUR ---
PT FINISHED 2ND UNIT OF PRBC, CONTINUES TO HAVE FREQUENT LARGE LOOSE STOOLS, VITAL SIGNS WNL, PT DENIES DIZZINESS, WILL DRAW AM LABS AND TREND H/H. PT APPEARS COMFORTABLE IN BED AND HAS NO COMPLAINTS AT THIS TIME. CURRENTLY INFUSING LR AT 125 ML/HR.
--- NOTE | 2021-06-30 06:08 | NUR ---
CALL LIGHT ANSWERED, PT UP TO BSC WITH SBA, PT DENIES DIZZINESS. VOIDED 700ML DILUTE YELLOW URINE AND PERFORMED OWN PERICARE. PT BACK IN BED, WARM BLANKET PROVIDED. DENIES FURTHER REQUESTS, CALL LIGHT WITHIN REACH.
--- NOTE | 2021-06-30 06:54 | NUR ---
PT CONTINUING TO HAVE UNCONTROLLED LOOSE STOOLS, WHEN ASKED SHE DOES STATE THEY ARE MORE FREQUENT THAN SHE TYPICALLY HAS AT HOME. ON AVERAGE SHE ONLY HAS A COUPLE LOOSE STOOLS A DAY AND SHE CAN CONTROL THEM.
--- NOTE | 2021-06-30 07:45 | NUR ---
Spoke with pt. States she is feeling much better. States she was not aware of how ill she was. She lives in [place] in a 1 story house with spouse. No steps. She works for [employer] at the [employer] in. Feeling better post receiving blood. Plans on dc to home with spouse. She denies needs.
--- NOTE | 2021-06-30 08:45 | NUR ---
PATIENT RESTING IN BED UPON INITIAL ASSESSMENT. PATIENT STATES SHE IS FEELING MUCH BETTER THAN SHE WAS WHEN SHE CAME INTO THE ER. PATIENT DENIES HAVING ANY DIZZYNESS OR VISUAL HALLUCINATIONS LIKE SHE WAS HAVING PRIOR TO COMING IN. PATIENT HAS HAD SEVERAL BOWEL MOVEMENTS SINCE ARRIVING INTO CCU. PATIENT'S REGULAR TRAY HELD THIS AM AND WILL DISCUSS WITH DR. BALLARD IF PATIENT CAN HAVE FOOD OR NOT, GIVEN THE EVIDENCE OF BLEEDING PER RECTUM IN STOOL. ASSESSMENT IS BENIGN OTHER STARR. PATIENT REPORTS THAT JUST LAST MONTH, HER MIDDLE FINGER ON HER LEFT HAND UNDERWENT SURGERY AND THE TIP JUST BEYOND THE FIRST JOINT WAS REMOVED DUE TO AN INFECTION. PT STATES SHE WAS FLOWN TO [facility] FOR THIS. PT ASKS, "WHEN WILL THE DOCTOR BE IN TO SEE ME? I AM HOPING TO GO HOME TODAY." DISCUSSED THIS WITH PATIENT AND THE UNCERTAINTY OF WHEN SHE WOULD GO HOME.
--- NOTE | 2021-06-30 09:20 | NUR ---
DR. BALLARD IN ROOM TO SEE PATIENT AT THIS TIME.
[2021-06-30] MEDS ORDERED: ULTRAM50 MG PO (10:39)
[2021-06-30] MEDS ORDERED: VITAMIN D31250 MC1 PO (10:41)
--- NOTE | 2021-06-30 10:43 | NUR ---
MED REC COMPLETED BY PHARMACY
--- NOTE | 2021-06-30 13:25 | NUR ---
PATIENT HAS ANOTHER INCONTINENCE OF STOOL, AND THEN MORE ONCE IN BATHROOM. STOOL SAMPLE COLLECTED FROM ATTENDS AND SENT TO LAB FOR EVALUATION. STOOL REMAINS VERY FOUL SMELLING, AND RAO IN COLOR. PT IS NOW SALINE LOCKED. PT REMAINS ON A CLEAR LIQUID DIET AND TOLERATING THIS WELL.
--- NOTE | 2021-06-30 16:20 | NUR ---
PATIENT RESTING COMFORTABLEY IN BED AT THIS TIME AND DENIES NEEDS. PT UP TO BATHROOM FREQUENTLY TO VOID AND STEADY ON FEET. PT'S ARRIVES AND BRINGS HER PERSONAL WARMING BLANKET FROM HOME PER PATIENT'S REQUEST. DR. BHAT CONSULT PENDING. WILL CONTINUE TO MONITOR.
--- NOTE | 2021-06-30 18:42 | NUR ---
DR. BHAT IN TO SEE PATIENT AT THIS TIME AND DISCUSSING PLAN OF CARE MOVING FORWARD. PT WILL HAVE AN UPPER AND LOWER SCOPE TOMORROW. PT TO REMAIN ON CLEAR LIQUIDS TONIGHT AND HAVE BOWEL PREP. PT AGREEABLE TO THIS PLAN.
--- NOTE | 2021-06-30 19:30 | NUR ---
REPORT RECEIVED FROM PATRICIA RN, WILL CONTINUE PLAN OF CARE.
--- NOTE | 2021-06-30 20:21 | NUR ---
PT LAYING IN BED AWAKE AND ALERT ON ROOM AIR, SPO2 100%. PT'S LEAVING ROOM AT THIS TIME. PT REPORTS LEG SPASMS AND GENERAL BODY ACHES 02/19. PRN TIZANIDINE ADMINISTERED FOR MUSCLE SPASMS (SEE MAR) ALONG WITH SCHEDULED NORCO AND SCHEDULED MEDICATION (SEE AUG). PT UP TO THE BATHROOM TO VOID, THIS RN STANDBYE ASSIST. PT REQUIRED NO ASSISTANCE AND WAS ABLE TO GET BACK INTO BED AFTER VOIDING. PT VITALS TAKEN AND PT ASSESSED (SEE CHART). PT LUNGS ARE CLEAR, ACTIVE BOWEL TONE PRESENT, ABDOMEN SOFT, PT HAS STRONG RADIAL AND PEDAL PULSES, AND BRISK CAPILLARY REFILL. PT REPORTS NUMBNESS/TINGLING TO HER LEFT MIDDLE DIGIT STATING IT HAS BEEN ONGOING FOR AT LEAST A WEEK. PT REPORTS NO FURTHER NEEDS AT THIS TIME WHEN ASKED. PT NOW LAYING IN BED AWAKE AND ALERT WATCHING TV, CALL LIGHT IN REACH, BED IN LOWEST POSITION, WILL CONTINUE PLAN OF CARE.
--- NOTE | 2021-06-30 21:05 | NUR ---
MIRALAX/GATORADE BOTTLE GIVEN TO PT AT THIS TIME (SEE MAR). PT LAYING IN BED AWAKE AND ALERT AND NOW DRINKING FROM BOTTLE. PT REPORTS NO FURTHER NEEDS AT THIS TIME WHEN ASKED, WILL CONTINUE PLAN OF CARE.
--- NOTE | 2021-06-30 21:37 | NUR ---
PT LAYING IN BED SLEEPING, PT AWOKE EASILY. NEW ECG LEADS PLACED ON AT THIS TIME. PT REMINDED TO CONTINUE DRINKING HER GATORADE/MIRALAX BOTTLE. PT REPORTS NO FURTHER NEEDS AT THIS TIME AND IS AWAKE AND ALERT WATCHING TV AND DRINKING HER MIRALAX BOTTLE. WILL CONTINUE PLAN OF CARE. CALL LIGHT IN REACH, BED IN LOWEST POSITION.
--- NOTE | 2021-07-01 00:01 | NUR ---
PT LAYING IN BED AWAKE AND STATED SHE NEEDED TO GET UP TO THE BATHROOM. PT ABLE TO STAND UP AND WALK TO THE BATHROOM TO VOID AND HAVE A LIQUID BM. PT NOW BACK IN BED, SECOND BOTTLE OF MIRALAX GIVEN SHE FINISHED THE FIRST BOTTLE. PT VITALS THEN TAKEN AND PT ASSESSED (SEE CHART). PT BACK IN BED AND REPORTS NO FURTHER NEEDS AT THIS TIME WHEN ASKED, CALL LIGHT IN REACH, BED IN LOWEST POSITION, WILL CONTINUE PLAN OF CARE.
--- NOTE | 2021-07-01 01:14 | NUR ---
PT UP TO BATHROOM, VOIDED 100ML YELLOW URINE AND HAD UNMEASURE LIQUID STOOL, PT REPORTS STOOL IS AND ORANGE/RUST COLOR. PT BACK IN BED. LAST BOTTLE OF BOWEL PREP PROVIDED. DENIES FURTHER NEEDS, CALL LIGHT WITHIN REACH.
--- NOTE | 2021-07-01 02:19 | NUR ---
PT LAYING IN BED SLEEPING AT THIS TIME, PT AWOKE EASILY AND WAS ALERT AND ORIENTED. PT INFORMED ON TRANSFER TO [place] ROOM 109. PT PLACED ON TELEMETRY AT THIS TIME. PT REPORTS NO FURTHER NEEDS AT THIS TIME, WILL CONTINUE PLAN OF CARE. CALL LIGHT IN REACH, BED IN LOWEST POSITION.
--- NOTE | 2021-07-01 03:19 | NUR ---
PT AWAKE, ALERT, AND ORIENTED LAYING IN BED. PT REPORTED NO NEEDS. PT AND HER BELONGINGS TAKEN DOWN TO MS ROOM 109, RN HENRIQUE AND SILVICULTURIST DAVID IN ROOM TO CONTINUE PLAN OF CARE.
--- NOTE | 2021-07-01 05:10 | NUR ---
PT TRANSFERRED FROM ICU, ON ROOM AIR, LUNGS CLEAR, COOPERATIVE. 2 SL PATENT. HAS HAD SEVERAL BROWN LARGE LIQUID BM, COMPLETED BOWEL PREP. VOIDING QS, NO C/O PAIN, INDEPENDENT INROOM. NPO FOR AM PROCEDURE. COOPERATIVE. AWARE OF C-DIFF ENTERIC PRECAUTIONS UNTIL LAB RESULTS ARE BACK. DOES OWN MOUTH CARE. USES CALL LIGHT. ALERT AND ORIENTED. NO EMESIS
--- NOTE | 2021-07-01 06:51 | NUR ---
PT MEDICATED PER C/O GENERALIZED, CHRONIC PAIN AND H/A WITH TYLENOL 500MG PO AND ZANAFLEX PER MUSCLE STIFFNESS AND PAIN. TOLERATED SMALL SIPS OF FLUIDS SHE IS NPO FOR AM PROCEDURES. HAVING MORE LIQUID BROWN STOOKS, VOIDED QS URINE. UP TO BR W/O ASSIST. ON ENTERIC PRECAUTIONS. NPO, DOES OWN MOUTH CARE, USES CALL LIGHT, ALERT AND ORIENTED
--- NOTE | 2021-07-01 07:32 | NUR ---
Shift report received from RN Patricia, pt ind in room, returning from bathroom, now resting in bed w/ call light in reach, no needs at this time
--- NOTE | 2021-07-01 09:00 | NUR ---
Spoke with Marzena. She states she is awaiting for EGD. Per 829 meeting pt may dc to home today following EGD if stable.
--- NOTE | 2021-07-01 09:04 | NUR ---
Pt resting in bed safely w/ call light in reach. Morning assesment complete, scheduled meds given per provider order, pt c/o 03/21 pain in hips, scheduled pain meds given. Pt denies any further needs at this time
--- NOTE | 2021-07-01 11:20 | NUR ---
Pt resting safely in bed w/ call light in reach. Tele discontinued per provider orders. Pt remains NPO and LR w/ straight tubing hanging, awaiting surgery.
--- NOTE | 2021-07-01 11:26 | EKG ---
[facility] [address] [facility] [address] [place] [address] Signed Sinus bradycardia with fusion complexes Cannot rule out Anterior infarct (cited on or before 21-APR-2019) T wave abnormality, consider lateral ischemia Abnormal ECG When compared with ECG of 03-FEB-2020 15:24, fusion complexes are now present Confirmed by ORACIO BALLARD MD ([id number]) on 07/01/2021 11:26:24 AM Electronically Signed By: ORACIO BALLARD MD 07/01/21 1126 PATIENT NAME: TERESA CHERRY Electrocardiogram DATE OF : 61 PHYSICIAN: ORACIO BALLARD MD REPORT #: [id number] REPORT IS CONFIDENTIAL AND NOT TO BE RELEASED WITHOUT AUTHORIZATION
--- NOTE | 2021-07-01 11:35 | NUR ---
Pt taken via surgical stretcher by surgery crew for scope.
--- NOTE | 2021-07-01 12:55 | NUR ---
07/01/21 1255 NUSRAT OLIVA 1245-PATIENT ARRIVES TO PACU ON 6L VIA MASK. PATIENT IS REACTIVE TO VERBAL STIMULI. RESP EVEN AND UNLABORED. 1247-PATIENT REPOSITIONS SELF TO BACK. PATIENT IS DROWSY AND ASKING QUESTIONS. HOB ELEVATED.
--- NOTE | 2021-07-01 13:16 | NUR ---
Pt still in surgery.
--- NOTE | 2021-07-01 13:30 | NUR ---
Pt returned from surgery, A+O x3, pt able to independently transfer to bed, VSS on RA. Pt now on clear liquids given broth, juice, and jello per request, no further needs at this time
--- NOTE | 2021-07-01 15:30 | NUR ---
Pt resting safely in bed w/ call light in reach. Scheduled meds given per provider order, pt denies any needs at this time
--- NOTE | 2021-07-01 18:15 | NUR ---
Pt resting in bed safely w/ call light in reach, son at bedside, clear liquid tray given to pt, scheduled meds given per provider order, no further needs at this time
--- NOTE | 2021-07-01 22:25 | NUR ---
PT ON ROOM AIR, OFF CONTACT EN TERIC PRECAUTIONS. UP TO BR W/O ASSIST, TOLERATING WELL, VOIDING qs, NO BM THIS SHIFT. 2 SL PATENT. MEDICATED WITH SCHEDULED PAIN MED AND TYLENOL PRN PER GENERALIZED PAIN. TOOK MEDS W/O PROBLEMS, MEDICATED WITH MUSCLE RELAXANT PER BACK PAIN. PSEUDOEPHINEPRINE AND NS NASAL SPRAY PER NASAL CONGESTION . NO COUGH, NO EMESIS. TOLERATING CLEAR LIQUIDS VERY WELL. MORE JUICE, ICE CHIPS AND CLEAR LIQUID GIVEN ON REQUESTS. COOP WITH ASSESSMENT, AWARE OF NPO AFTER MIDNIGHT PER AM PROCEDURES, STATED UNDERSTANDING
--- NOTE | 2021-07-02 | NUR ---
in to make sure pt was npo @ 0000, pt provided with oral care sponges and small amt of water in cup, pt denies need to void at this time
--- NOTE | 2021-07-02 00:29 | NUR ---
awakes easily, npo as of midnight, pt aware. on room air, no c/o pain
--- NOTE | 2021-07-02 02:30 | NUR ---
Resting, no distress, on room air. call light at hands reach, NPO, does own mouth care.
--- NOTE | 2021-07-02 05:26 | NUR ---
Pt on room air, NPO for am surgery. does own mouth care. SL x2 patent. no bm this shift. voiding QS. independent in room. Prior to being NPO at midnight, she tolerated large amounts of clear liquids. no emesis. uses call light.
--- NOTE | 2021-07-02 07:30 | NUR ---
Shift report recieved from RN Patricia, pt resting safely in bed w/ call light in reach no needs at this time.
--- NOTE | 2021-07-02 09:15 | NUR ---
No change in plan for dc, awaiting surgery at 1 pm today.
--- NOTE | 2021-07-02 10:00 | NUR ---
Pt sitting up in bed safely w/ call light in reach. Morning assesment complete, scheduled meds given per provider order, pt c/o 03/21 KOO, scheduled pain meds given. Pt's IVs wrapped, pt given hibiclens saop, and shower set up for pt. No further needs at this time
--- NOTE | 2021-07-02 12:24 | NUR ---
PT TO HAVE SURGERY AT 1300 TODAY. GODD VISIT, PT SEEMS PREPARED, PT REQUESTED PRAYER. LEFT G.POST AND WILL FOLLOW NEEDED
--- NOTE | 2021-07-02 12:53 | NUR ---
Pt taken to surgery.
--- NOTE | 2021-07-02 14:00 | NUR ---
PT STILL IN SURGERY NO UPDATES
--- NOTE | 2021-07-02 16:05 | NUR ---
PT STILL IN SURGERY NO UPDATES
--- NOTE | 2021-07-02 16:40 | PATH ---
[facility] [address] [place], [place] [address] Signed THIS IS AN ADDENDUM REPORT SPECIMEN(S): A PREPYLORIC STOMACH BX SPECIMEN(S): B PROXIMAL STOMACH BIOPSY SPECIMEN(S): C LOW ESOPHAGEAL BIOPSY SPECIMEN(S): D MID ESOPHAGEAL BIOPSY SPECIMEN(S): E TRANSVERSE COLON POLYP SPECIMEN(S): F TUMOR AT 20 CM SPECIMEN(S): G RECTAL POLYP SPECIMEN SOURCE: A. PREPYLORIC STOMACH BX B. PROXIMAL STOMACH BIOPSY C. LOW ESOPHAGEAL BIOPSY D. MID ESOPHAGEAL BIOPSY E. TRANSVERSE COLON POLYP F. TUMOR AT 20 CM G. RECTAL POLYP CLINICAL HISTORY: Anemia, syncope, ILEANA. Preoperative EGD: Anemia. Preoperative Colon: Duodenal switch procedure (history). Postop EGD: Mild chronic gastritis. Postop Colon: Neoplasm at 20 cm, polyps x 2. FINAL PATHOLOGIC DIAGNOSIS: A. Stomach, pre-pylorus, biopsy: - Antral mucosa with mild chronic, inactive gastritis. - Negative for Helicobacter organisms on HE stain. - Negative for dysplasia or malignancy. B. Stomach, proximal, biopsy: - Oxyntic mucosa with changes as seen with proton pump inhibitor (PPI therapy). - Negative for Helicobacter organisms on HE stain. - Negative for dysplasia or malignancy. C. Esophagus, low, biopsy: - Squamous mucosa with lymphocytic inflammation and reactive epithelial changes, consistent with reflux esophagitis. - Negative for intestinal metaplasia, dysplasia, or malignancy. D. Esophagus, mid, biopsy: - Squamous mucosa with acute and chronic inflammation, focal parakeratosis, and reactive epithelial changes, see Comment. PATIENT NAME: TERESA CHERRY PATHOLOGY DATE OF : 61 REPORT #: [id number] PHYSICIAN: [facility] PCP: ALEXEI JAMES MD REPORT IS CONFIDENTIAL AND NOT TO BE RELEASED WITHOUT AUTHORIZATION [facility] [address] [place], [place] [address] Signed - Negative for increased intraepithelial eosinophils. - Negative for dysplasia or malignancy. E. Colon, transverse, polyp, polypectomy: - Inflammatory polyp. - Negative for dysplasia or malignancy. F. Colon, tumor at 20 cm, biopsy: - Invasive adenocarcinoma, moderately differentiated. - See comment. G. Rectum, polyp, polypectomy: - Inflammatory polyp. - Negative for dysplasia or malignancy. COMMENT: Specimen D: A PAS/D stain has been ordered to evaluate for fungal organisms and will be reported in an addendum. Specimen F: Mismatch repair (MMR) testing by IHC have been ordered and will be reported in an addendum. As part of [facility]' Quality Improvement Program, part F of this case was reviewed by another member of our pathology staff. A diagnostic alert was initiated by Dr. Jack on 07/02/21. NAL:mfr:[id number] MICROSCOPIC EXAMINATION: Histologic sections of all submitted blocks are examined by light microscopy. These findings, together with the gross examination, support the pathologic diagnosis. GROSS DESCRIPTION: Seven specimens are received in seven containers, labeled "RC." A. The specimen, labeled "RC, prepyloric stomach biopsy," is received in formalin and consists of two mcclure soft tissue fragments that measure 0.1-0.2 cm in greatest dimension. The specimen is entirely submitted in cassette (A1). B. The specimen, labeled "RC, proximal stomach biopsy," is received in formalin and consists of two mcclure soft tissue fragments that measure 0.2 cm in greatest dimension. The specimen is entirely submitted in cassette (B1). C. The specimen, labeled "RC, low esophagus biopsy," is received in formalin and consists of two mcclure soft tissue fragments that measure 0.2 cm in greatest dimension. The specimen is entirely submitted in cassette (C1). PATIENT NAME: TERESA CHERRY PATHOLOGY DATE OF : 61 REPORT #: [id number] PHYSICIAN: MIKAYLA MALIK PCP: ALEXEI JAMES MD REPORT IS CONFIDENTIAL AND NOT TO BE RELEASED WITHOUT AUTHORIZATION [facility] [address] [place], [place] [address] Signed D. The specimen, labeled "RC, mid esophagus biopsy," is received in formalin and consists of one mcclure soft tissue fragment that measures 0.2 cm in greatest dimension. The specimen is entirely submitted in cassette (D1). E. The specimen, labeled "RC, transverse colon polyp," is received in formalin and consists of one mcclure soft tissue fragment that measures 0.4 cm in greatest dimension. The specimen is entirely submitted in cassette (E1). F. The specimen, labeled "RC, colon tumor at 20 cm," is received in formalin and consists of four mcclure soft tissue fragments that measure 0.1-0.5 cm in greatest dimension. The specimen is entirely submitted in cassette (F1). G. The specimen, labeled "RC, rectal polyp," is received in formalin and consists of one mcclure soft tissue fragment that measures 0.5 cm in greatest dimension. The specimen is entirely submitted in cassette (G1). JS (under the direct supervision of a pathologist) The Gross Description was prepared using a voice recognition system. The report was reviewed for accuracy; however, sound-alike word errors, addition and/or deletions may occur. If there is any question about this report, please contact Client Services. PERFORMING LABORATORY: The technical component was performed by [facility], [address] [place] [address] (Photo Mask Pattern Generator: Temitope Peterson MD; CLIA# [id number]). Professional interpretation was performed by [place] [address] (CLIA# [id number]). The technical [place] [address] (Photo Mask Pattern Generator: Temitope Peterson MD; CLIA# [id number]). Professional interpretation was performed by [facility], [address] [place] [address] (CLIA# [id number]). REASON FOR ADDENDUM: To report the results of special stains. ADDENDUM COMMENT: Regarding specimen D: A PAS / D stain (with appropriately staining controls) is negative for fungal organisms. NAL:[facility] PATIENT NAME: TERESA CHERRY PATHOLOGY DATE OF : 61 REPORT #: [id number] PHYSICIAN: MIKAYLA PATHOLOGY PCP: ALEXEI JAMES MD REPORT IS CONFIDENTIAL AND NOT TO BE RELEASED WITHOUT AUTHORIZATION [place] [address] [place], [place] [address] Signed Diagnostician: Helga Jack MD Pathologist Electronically Signed 07/02/2021 Copies: ~ PATIENT NAME: TERESA CHERRY PATHOLOGY DATE OF : 61 REPORT #: [id number] PHYSICIAN: MIKAYLA PATHOLOGY PCP: ALEXEI JAMES MD REPORT IS CONFIDENTIAL AND NOT TO BE RELEASED WITHOUT AUTHORIZATION
--- NOTE | 2021-07-02 17:57 | NUR ---
07/02/21 175 M[address] [place] 1747- PT ARRIVES TO PACU AWAKE AND TALKING. PT REPORTS NO PAIN OR NAUSEA. RESP EVEN AND UNLABORED. OXYGEN SAT HIGH 90'S TO 100% ON 8L VIA MASK. 1753- PT IS REPORTING "A LITTLE BIT" OF PAIN. WHEN ASKED PT TO RATE THE PAIN SHE REPORTS IT'S AN 8/10. PT REPORTS THE PAIN IS HIGHER UP ON HER INCISION. SUPERVISOR ORDER TAKERS AT THE BEDSIDE AND AWARE. BLOCKS WERE PLACED RECENTLY PRIOR TO COMING TO PACU.
--- NOTE | 2021-07-02 19:00 | NUR ---
PT RETURNED FROM SURGERY, SLIGHTLY DROWSY STILL BUT A+O X3, MIDLINE DRESSING INTACT TWO PINPOINT SPOTS OF SHADOWING NOTED, HUGH DRAIN LLQ W/ SANGUINEOUS DRAINAGE. VSS ON 2L VIA NC, PT TOLERATED ICE CHIPS, BROTH AND POPSICLE GIVEN PER PT REQUEST, STRAPPING MACHINE OPERATOR RYANNE MURPHY IN ROOM GIVEN BEDSIDE REPORT. PT HAS ADLER W/ PALE YELLOW DRAINAGE NOTED, PT DENIES ANY NAUSEA, BUT C/O MILD ABD PAIN, RYANNE MURPHY WLL CHECK EMAR TO SEE WHAT PAIN MEDICATIONS ARE AVAILABLE, PT DENIES ANY OTHER NEEDS AT THIS TIME, AT BEDSIDE
--- NOTE | 2021-07-02 19:25 | NUR ---
SHIFT REPORT RECEIVED FROM DAYSHIFT RYANNE HOLLIS AT BEDSIDE. pt RECENTLY RETURNED FROM OR, VSS. CPOX IN PLACE, 2LNC ON. ATTEMPTED TO TITRATE pt TO RA, SPO2 86%. WILL MONITOR. FOCUSED ASSESSMENT COMPLETE, MIDLINE DRESSING INTACT, SCANT PIN PRICK SHADOWING NOTED. HUGH DRAIN TO LLQ, SMALL AMOUNT SANGUINEOUS OUTPUT NOTED. pt EDUCATED TO USE CALL LIGHT BEFORE GETTING OOB, pt VERBALIZED UNDERSTANDING. BOWEL TONES HYPOACTIVE TO ACTIVE, pt DENIES NAUSEA. pt TOLERATING CLEAR LIQUID DIET. NO FURTHER NEEDS, CALL LIGHT IN REACH.
--- NOTE | 2021-07-02 20:30 | NUR ---
ASSESSMENT COMPLETE, SCHEDULED MEDS GIVEN. (SEE EMAR). pt AWAKE AND REPORTS 8-9/10 PAIN. NO GRIMACING OR CRYING NOTED, pt APPEARS RELAXED AT THIS TIME. PRN TORADOL GIVEN, SEE EMAR. NO CHANGE TO MIDLINE INCISION OR HUGH DRAIN, WILL CONTINUE TO MONITOR. pt DENIES NAUSEA, TOLERATING CLEAR LIQUID DIET. pt EDUCATED ON TAKING IT SLOW REGARDING ORAL INTAKE, pt VERBALIZED UNDERSTANDING. SCD'S REMAIN IN PLACE. NO FURTHER NEEDS, CALL LIGHT IN REACH.
--- NOTE | 2021-07-02 22:15 | NUR ---
PT CALLED STATING HER PAIN IS 10/10. ADMINISTERED TYLENOL AND 4MG IV MORPHINE FOR 10/10. VS TAKEN AND ENTERED AND PT DENIES FURTHER NEEDS. CALL LIGHT IS CLOSE.
--- NOTE | 2021-07-02 23:15 | NUR ---
DR BHAT AT RN STATION. pt HAS NO ORDERS FOR FLUIDS, INFORMED MD HOLLOWAY. TO PLACE ORDERS FOR IV FLUIDS. KASSIDY RN TO HANG FLUIDS ONCE ORDER IS VERIFIED. DR BHAT MADE AWARE OF pt's REPORTED PAIN AND NEED FOR IV NARCOTICS. WILL CONTINUE TO MONITOR. CALL LIGHT IN REACH.
--- NOTE | 2021-07-02 23:30 | NUR ---
ROUNDED ON pt, pt AWAKE AND RESTING IN BED. REPORTS PAIN IS "BETTER". pt AWAKE AND RESTING IN BED, ON RA. CPOX REMAINS IN PLACE. NO DISTRESS OR OUTWARD SIGNS OF PAIN NOTED. WILL CONTINUE TO MONITOR. pt ASKING WHEN SHE CAN HAVE PAIN MEDICATIONS, DISCUSSED ORDERED PAIN MEDICATIONS WITH pt AND AGAIN EDUCATED HER THAT MD WOULD PREFER TO STAY FROM NACOTIC USE AND TO TRY NONARCOTICS FIRST. NO FURTHER NEEDS. pt VERBALIZED UNDERSTANDING. ALSO DISCUSSED WITH MD BHAT THAT pt HAS ADLER CATHETER, PER , KEEP CATHETER IN PLACE UNTIL MD PLACES ORDERS TO DC. CALL LIGHT IN REACH. IV SITE WNL.
--- NOTE | 2021-07-03 01:01 | NUR ---
SPO2 ALARMING, 87-89% ON RA, 1LNC PLACED. SPO2 NOW WNL. NO FURTHER NEEDS, CALL LIGHT IN REACH.
--- NOTE | 2021-07-03 02:40 | NUR ---
SCHEDULED IV ABX INFUSING, IV SITE WNL. NO CHANGES TO ABD DRESSING, HUGH EMPTIED WITH 35 MLS SANGUINEOUS OUTPUT. pt AWOKE TO VOICE, BUT DROWSY AND WENT BACK TO SLEEP, EYES CLOSED. RR EVEN AND UNALBORED. 1LNC REMAINS IN PLACE. CALL LIGHT IN REACH.
--- NOTE | 2021-07-03 05:46 | NUR ---
ASSESSMENT COMPLETE, SCHEDULED AM MEDS GIVEN (SEE EMAR). NO CHANGES TO MIDLINE DRESSING, NO NEW SHADOWING NOTED. HUGH DRAIN REMAINS PATENT, WORKING WNL. pt STOOD AND AMBULATED IN ROOM, DENIED DIZZINESS AND TOLERATED WELL. SCD'S REMAIN IN PLACE. VSS AND I&O'S COMPLETE. NO FURTHER NEEDS, CALL LIGHT IN REACH.
--- NOTE | 2021-07-03 06:34 | NUR ---
DR BALLARD MADE AWARE VIA PHONE OF pt's CLAIM SHE DOES NOT TAKE LEVOTHYROXINE AND HASN'T FOR A COUPLE MONTHS AND THAT MED IS ON CANCELLED MED LIST. MD ALSO AWARE THIS RN HELD AM DOSE. PER MD, OKAY TO HOLD. MD TO FURTHER EVALUATE WITH pt LATER TODAY ON DAYSHIFT.
--- NOTE | 2021-07-03 07:30 | NUR ---
Shift report received from RYANNE Lobato, pt resting safely in bed w/ call light in reach, no needs at this time
--- NOTE | 2021-07-03 10:00 | NUR ---
Pt resting safely in bed w/ call light in reach, pt denies any pain but c/o discomfort from whyte, whyte draining sufficiently will discuss possible removel w/ provider. Morning assesment complete, scheduled meds given, and IV abx hung and infusing per provider order. Midline dressing CDI, HUGH drain located LLQ w/ small amount of sanguineous drainage. Pt tolerating clear liquids, eager to advance diet and discharge home
--- NOTE | 2021-07-03 10:21 | NUR ---
PATIENT IN BED RESTING AT THIS TIME. VITALS AND I&O'S CHARTED. PATIENT COMPLAINED OF IV SITE HURTING A LITTLE BIT, RN NOTIFIED. CALL LIGHT IN REACH. NO FURTHER NEEDS AT THIS TIME.
--- NOTE | 2021-07-03 12:30 | NUR ---
Pt resting in bed safely w/ call light in reach, pt c/o abd pain, RN Marci in room to give PRN pain meds pre request/provider order. No further needs at this time
--- NOTE | 2021-07-03 13:30 | NUR ---
PATIENT SITTING UP IN BED WATCHING TV. VITALS AND I&O'S CHARTED. FRESH WATER GIVEN. CALL LIGHT IN REACH. NO FURTHER NEEDS AT THIS TIME.
--- NOTE | 2021-07-03 14:00 | NUR ---
PT SITTING UP IN BED W/ CALL LIGHT IN REACH, SCD'S ON, AND IV FLUIDS INFUSING PER PROVIDER ORDER. PT GIVEN ICE WATER, BROTH, AND JELLO UPON REQUEST. PT CONTINUES TO TOLERATE CLEAR LIQUIDS AND DENIES NAUSEA, PT EAGER TO ADVANCE DIET, WILL DISCUSS WITH PROVIDER.
--- NOTE | 2021-07-03 16:00 | NUR ---
DR. BHAT IN ROOM TO ASSES PT'S PROGRESS. NEW ORDERS TO ADVANCE PT'S DIET TO FULL LIQUID AND AMBULATE PT IN HALLWAY TOLERATED. PT SITTING UP IN BED AGREEABLE W/ POC, AT BEDSIDE.
--- NOTE | 2021-07-03 18:00 | NUR ---
PT AMBULATING HALLWAY IND, W/ , TOLERATING WELL W/ SLIGHT DISCOMFORT, DENIES NEED FOR PRN PAIN MEDS AT THIS TIME.
--- NOTE | 2021-07-03 18:38 | NUR ---
PATIENT IN BED RESTING AT THIS TIME. IN ROOM. VITALS AND I&O'S CHARTED. CATH CARE DONE. PATIENT REQUESTING PAIN MEDS, RN NOTIFIED. CALL LIGHT IN REACH. NO FURTHER NEEDS AT THIS TIME.
--- NOTE | 2021-07-03 19:25 | NUR ---
SHIFT REPORT RECEIVED FROM DAYSVAFT RYANNE HOLLIS AT BEDSIDE. pt AWAKE AND RESTING IN BED, ON RA. CPOX REMAINS AT BEDSIDE. MIDLINE DRESSING INTACT, SCANT OLD SEROSANGUINEOUS SHADOWING NOTED, HUGH DRAIN TO LLQ. SCD'S IN PLACE. IV FLUIDS INFUSING, SITE WNL.
--- NOTE | 2021-07-03 22:23 | NUR ---
ASSESSMENT COMPLETE, SCHEDULED MEDS GIVEN ALONG WITH PRN PAIN MEDICATION FOR 9/10 PAIN. UPON ENTERING ROOM, pt WAS AWAKE AND RESTING IN BED AND ON HER PHONE. NO GRIMACING OR CRYING NOTED. PO PAIN MEDS UNAVAILABLE, LOWEST DOSE IV MEDICATION GIVEN. NO CHANGES TO ABD DRESSING, HUGH DRAIN WNL. VS AND I&O'S COMPLETE. SCD'S OFF PER pt REQUEST, NO FURTHER NEEDS, CALL LIGHT IN REACH.
--- NOTE | 2021-07-03 23:53 | NUR ---
ROUNDED ON pt, pt RESTING IN BED WITH EYES CLOSED. RR EVEN AND UNLABORED. CPOS AT BEDSIDE, SPO2 LOW 90'S, HR 60'S. CALL LIGHT IN REACH.
--- NOTE | 2021-07-04 00:39 | NUR ---
pt RESTING IN BED, SPO2 UPPER 80'S ON RA. pt PLACED ON 1LNC. SPO2 RETURNED TO WNL-SUSTAINING IN MID 90'S. pt AWOKE TO VOICE, DENIES NEEDS OR CONCERNS. CALL LIGHT IN REACH.
--- NOTE | 2021-07-04 02:38 | NUR ---
ROUNDED ON pt, pt RESTING IN BED WITH EYES CLOSED. RR EVEN AND UNLABORED. NO DISTRESS NOTED. SPO2 95% ON 1LNC. HR 60'S. CALL LIGHT REMAINS IN REACH.
--- NOTE | 2021-07-04 03:55 | NUR ---
pt RESTING IN BED, EYES CLOSED. CPOX AT BEDSIDE. 1LNC IN PLACE, SPO2 MID 90'S. HR WNL. pt AWOKE TO VOICE, ASSISTED WITH ADJUSTING PILLOW. NO FURTHER NEEDS, CALL LIGHT IN REACH. IV SITE WNL.
--- NOTE | 2021-07-04 06:21 | NUR ---
assessment complete, no acute changes. pt incontinent of stool, tan and cath care done. whyte patent. clean attends in place. scheduled thyroid and steriod medication given, see emar. new bag iv fluids also hung and infusing as directed, iv sites x2 wnl. no further needs, call light in reach.
--- NOTE | 2021-07-04 07:30 | NUR ---
Shift report received from RYANNE Lobato, pt resting safely in bed w/ call light in reach and eyes closed, RR even and unlabored on 1L, O2 sats 94% per CPOX.
--- NOTE | 2021-07-04 08:30 | NUR ---
PATIENT UP TO CHAIR FOR BREAKFAST, SBA. FRESH WATER GIVEN. AM CARE DONE. CALL LIGHT IN REACH. NO FURTHER NEEDS AT THIS TIME.
--- NOTE | 2021-07-04 09:00 | NUR ---
Pt sitting up in chair w/ call light in reach, eating breakfast. Morning assesment complete, schedule meds given, and IV fluids and Potassium hung and infusing per provider order, pt c/o pain in lower abd PRN Tylenol given see EMAR. Pt denies any further needs at this time, pt agreeable to ambulate in hallway after breakfast
--- NOTE | 2021-07-04 10:34 | NUR ---
PATIENT SITTING UP IN CHAIR TALKING ON PHONE. VITALS AND I&O'S CHARTED. ADLER CARE DONE. FRESH WATER GIVEN. CALL LIGHT IN REACH. NO FURTHER NEEDS AT THIS TIME.
--- NOTE | 2021-07-04 11:30 | NUR ---
Pt ambulating in hallway ind, pt walked 2 full laps, now sitting up in chair w/ call light in reach. in room to asses pt new orders to discontinue whyte, SL IV, and advance to regular diet. Pt agreeable w/ updated POC, tentative plan to discharge pt home tomorrow provided that pt remain stable w/ continued progress.
--- NOTE | 2021-07-04 12:30 | NUR ---
Pt c/o 12/19 pain in lower abd, PRN pain meds given per request and as ordered, see EMAR. Pt sitting up safely w/ call light in reach, eating lunch, in room visiting, pt denies any further needs at this time
--- NOTE | 2021-07-04 14:18 | NUR ---
Pt sitting up in chair w/ call light in reach, visiting w/ . Pt denies any pain or needs at this time.
--- NOTE | 2021-07-04 14:52 | NUR ---
PATIENT SITTING UP IN BED WATCHING TV. VITALS AND I&O'S CHARTED. FRESH WATER GIVEN. CALL LIGHT IN REACH. NO FURTHER NEEDS AT THIS TIME.
--- NOTE | 2021-07-04 16:26 | NUR ---
Pt sitting up in chair w/ call light in reach, watching TV. Pt denies any pain or needs at this time
--- NOTE | 2021-07-04 17:51 | NUR ---
Pt sitting up in chair eating dinner, call light in reach, pt c/o lower abd pain, scheduled pain meds given per provider orders. Pt denies any further needs at this time
--- NOTE | 2021-07-04 19:30 | NUR ---
SHIFT REPORT RECEIVED FROM DAYSHIFT RYANNE GARVIN AT BEDSIDE. pt AWAKE AND RESTING IN BED. IV SITES X2 WNL, SALINE LOCKED. NO NEEDS OR CONCERNS AT THIS TIME. CALL LIGHT IN REACH.
--- NOTE | 2021-07-04 21:07 | NUR ---
DSICUSSED WITH THAT PT HAS A DUPLICATE ORDER FOR CYMBALTA ON HER AUG, HE SAID TO CHECK HER HOME MED LIST ORDERS AND ADJUST INPATIENT TO MATCH. D/C ONE OF DUPLICATE ORDERS.
--- NOTE | 2021-07-04 22:07 | NUR ---
ASSESSMENT COMPLETE, SCHEDULED MEDS GIVEN ALONG WITH PRN PAIN MEDICATION FOR 9/10 PAIN. UPON ENTERING ROOM, pt AWAKE AND WATCHING TV, NO GRIMACING OR CRYING NOTED. IV SITES X2 WNL, FLUSHES EASILY. NO CHANGES TO ABD DRESSING, HUGH DRAIN INTACT. pt DECLINES SCD'S AT THIS TIME, pt INDEPENDENT IN ROOM. CALL LIGHT IN REACH.
--- NOTE | 2021-07-05 00:22 | NUR ---
pt RESTING IN BED, EYES CLOSED. RR EVEN AND UNLABORED. NO DISTRESS NOTED. CALL LIGHT IN REACH.
--- NOTE | 2021-07-05 02:30 | NUR ---
ASSESSMENT COMPLETE, NO ACUTE CHANGES. pt AWOKE TO VOICE. pt RESTING QUIETLY IN BED WITH RR EVEN AND UNLABORED. NO REPORT OF PAIN OR NAUSEA FROM pt, WILL CONTINUE TO MONITOR. ABD DRESSING AND HUGH DRAIN REMAIN UNCHANGED. SCD'S REMAIN OFF PER pt REQUEST. CALL LIGHT IN REACH.
--- NOTE | 2021-07-05 05:18 | NUR ---
VSS AND I&O'S COMPLETE. HUGH DRAIN EMPTIED, 30MLS OUTPUT NOTED-SANGUINEOUS IN COLOR. FRESH WATER PROVIDED. pt INDEPENDENT IN ROOM, CALL LIGHT IN REACH.
--- NOTE | 2021-07-05 05:22 | NUR ---
pt AMBULATING INDEPENDENTLY IN HALLWAY, DENIES NEEDS OR CONCERNS.
--- NOTE | 2021-07-05 07:58 | NUR ---
PT SITTING INC HAIR, LEGS ELEVATED. ON ROOM AIR. LUNGS CLEAR BILAT. 2 SL PATENT. MIDLINE ABD INCISION COVERED WITH OPTICOT AND OPSITE DRESSING , HUGH WITH SS DRAINAGE. PATENT. C/O ABD PAIN 03/21. MEDICATED WITH TYLENOL AND SCHEDULED ULTRAM. TOLERARTIANG DIET AND LIQUIDS WELL, NO EMESIS. USES CALL LIGHT. ALERT AND ORIENTED. CALL LIGHT AND FLUIDS AT HANDS REACH.
--- NOTE | 2021-07-05 08:05 | NUR ---
PATIENT UP TO BATHROOM THEN TO CHAIR, IND. WARM BLANKET GIVEN. CALL LIGHT IN REACH. NO FURTHER NEEDS AT THIS TIME.
--- NOTE | 2021-07-05 09:00 | NUR ---
Spoke with pt. she plans on dc today. Denies needs. Will dc to home with her spouse.
--- NOTE | 2021-07-05 09:56 | NUR ---
Up inchair, legs elevated. tolerated diet. no emesis. midline abd dressing opticoat and opsite removed. ss under. old drainage. edges well approx dry. HUGH patent ss drainage. Pt aware she can shower now. stated understanding. staed "He is going to take this off, (signaling to HUGH) and then send me home" procedure explained
--- NOTE | 2021-07-05 13:01 | NUR ---
C/O 03/21 ABD PAIN, MEDICATED WITH TYLENOL 1000MG
--- NOTE | 2021-07-05 14:19 | NUR ---
PATIENT HAS AMBULATED IN HALLWAY INDEPENDENTLY A FEW TIMES TODAY. PATIENT IN SITTING IN CHAIR WATCHING TV AT THIS TIME. VITALS AND I&O'S CHARTED. CALL LIGHT IN REACH. NO FURTHER NEEDS AT THIS TIME.
[2021-07-05] MEDS ORDERED: OXYCODON-ACETA1 EAC2 PO (14:41)
[2021-07-05] MEDS ORDERED: ACETAMINOPHEN500 MG PO (14:41)
--- NOTE | 2021-07-05 14:46 | NUR ---
DR BHAT IN ROOM, HUGH PULLED OUT. 2X2 IN PLACE. MEDICATED WITH ZANAFLEX PER MUSCLE SPASMS AND PERCOCET 1 TAB PER 10/10 ABD PAIN AND PRIOR TO DC. COMFORTABLE, EATING. DRESSED SELF. IV REMOVED X2
--- NOTE | 2021-07-05 15:15 | NUR ---
pt given dc instructions verbally and orally, all questions answered to her satisfaction. stated understanding. Rx for Percocet and work release given to pt.
--- NOTE | 2021-07-05 21:03 | OR ---
[facility] [address], [place] [address] Signed DATE OF OPERATION: 07/02/2021 SURGEON: Eliane Bhat MD PREOPERATIVE DIAGNOSES: 1. Rectosigmoid carcinoma with anemia. 2. Long-standing chronic adrenal insufficiency. POSTOPERATIVE DIAGNOSES: 1. Rectosigmoid carcinoma with anemia. 2. Long-standing chronic adrenal insufficiency. PROCEDURE: Low anterior resection (sigmoid and rectum) with side-to-end coloproctostomy and total mesorectal excision. ANESTHESIA: General endotracheal, Stanislaw Goetz, APPLIQUER and TAP blocks bilaterally postop. INDICATION: This 55-year-old white woman is admitted by Dr. Ballard on June 29, 2021 with profound anemia, hematocrit of 15. She has long-standing iron-deficiency anemia possibly related to prior duodenal switch operation many years ago. This was performed in [place]. Given the anatomy of her bariatric operation quite obviously duodenal absorption of iron would be not possible and that was what was attributed to her longstanding anemia and need for iron infusion therapy. Her recent admission was related to lightheadedness, no doubt related to her anemia. She is thought to have had some dark bloody stool at one point. She underwent upper endoscopy and colonoscopy by me yesterday. Upper endoscopy showed no sign of lesion to account for anemia, but colonoscopy showed an obvious neoplasm at approximately 20 cm from the anal verge. A subsequent CT scan was performed which showed no evidence of hepatic metastasis, but did show a 5 cm neoplasm of the rectosigmoid. She has undergone a full bowel prep, is now to undergo resection of the lesion with primary anastomosis. The risk of bleeding, infection, anastomotic failure, need for additional treatment depending on lymph node status and so forth were all reviewed with the patient and her , they understand and wished to proceed. FINDINGS: She had a somewhat complex abdominal closure from the past which had multiple small Electronically Signed By: ELAINE BHAT MD 07/05/21 7236 PATIENT NAME: TERESA CHERRY OPERATIVE REPORT DATE OF : 61 REPORT #: [id number] PHYSICIAN: ELAINE BHAT MD PCP: ALEXEI JAMES MD REPORT IS CONFIDENTIAL AND NOT TO BE RELEASED WITHOUT AUTHORIZATION [facility] [address] [place], [place] [address] Signed Prolene sutures. It was unclear if there was actually prosthetic mesh, though I suspect there may have been. Both a vertical and a transverse scar of her abdomen was noted. Entry to the abdomen was without too much problem, but was somewhat lengthy in abdominal entry. She had no evidence of carcinomatosis. The liver was not readily palpable based on scar tissue in the upper abdomen. The lesion itself was well demarcated by endoscopic tattoo dye that I had placed yesterday and was easily palpable and was approximately at the rectosigmoid. Wide mesenteric resection was undertaken, which included resection of the sigmoid and rectum down to the midportion. A total mesorectal excision was accomplished. The left ureter was identified and unharmed. A side-to-end coloproctostomy was accomplished without problem. DESCRIPTION OF PROCEDURE: The patient was brought to the operating room, given a general endotracheal anesthetic. A Gibbs catheter was placed. The abdomen is prepared with a chlorhexidine solution and draped sterilely. She received preoperative antibiotic cefoxitin as well as oral antibiotics during the course of her bowel prep yesterday. After satisfactory preparation, a midline incision was made somewhat cephalad to the umbilicus. A transverse incision was noted in the mid abdomen as well as the portion of the vertical incision as well. With meticulous care, the abdomen was entered. The rectus muscles appeared to be overlapped and thus were transected with all due care so as to avoid much bleeding. Once the abdomen was entered, it was clear that there was no evidence of ascites or carcinomatosis. There were dense adhesions in the upper abdomen which precluded easy evaluation of the liver and no further attempts were made to do so noting the prior normal CT scan of the liver. A Bookwalter retractor was affixed to the table and the small bowel was packed to the right side of the abdomen. The tumor itself was easily palpable and at about the level of the sacral promontory in the rectosigmoid, a very redundant more proximal colon was noted. It had minimal fixation of the abdominal wall, which accounted for the lengthy colonoscopy yesterday and clinical appearance of redundant colon. White line of Toldt was incised with electrocautery and the mesocolon reflected to the midline. Dissection was carried laterally around the pelvic peritoneum. Ultimately, the iliac vessels were identified as was the ureter crossing over it. Dissection was carried well away from the ureter proximally and distally. Dissection was carried over the sacral promontory and a total mesorectal excision type resection was undertaken. The proximal sigmoid was demarcated and transected with a KELI stapling device after sequential application of heavy clamp to the mesentery securing well the sigmoidal arterial branch as deep as reasonable. There did appear to be some fibrotic lymph tissue within this resection specimen. Transection of the colon allowed for further dissection in the presacral space using electrocautery. The rectum was quite capacious. Ultimately, area of demarcation several cm distal to the tumor was Electronically Signed By: ELAINE BHAT MD 07/05/21 3899 PATIENT NAME: COLVARD,TERESA NEELAM OPERATIVE REPORT DATE OF : 61 REPORT #: [id number] PHYSICIAN: ELAINE BHAT MD PCP: ALEXEI JAMES MD REPORT IS CONFIDENTIAL AND NOT TO BE RELEASED WITHOUT AUTHORIZATION [facility] [address] [place], [place] [address] Signed identified as appropriate for transection. Notably, numerous small lymph nodes of the mesentery had uptake of Endo petra tattoo dye which had been applied yesterday. A right angle bronchus clamp was applied to the mid rectum and the rectum was transected. The area was packed up with laparotomy pads and a side-to-end coloproctostomy undertaken in a two layer technique with interrupted 3-0 silk suture. Mesenteric defect was reapproximated with interrupted 3-0 silk suture as well. Irrigation was undertaken after change of gloves following anastomosis. There was no contamination of the peritoneal cavity so far as could be told. Through the left-sided stab incision, a 7 mm flat Edin drain was placed in the depths of the pelvis. Ibrahima hemostatic agent was used on the dissected tissue of the rectum for an additional protection of hemostasis. The small bowel was returned to its natural anatomic position and the omentum replaced over the abdominal contents. Photograph was taken of the open colon which showed the neoplasm which notably had a grossly negative margin proximally and distally. Midline fascia was reapproximated with running bidirectional 0 Prolene suture based on the prior closure. Much but not all of the prior suture was explanted prior to definitive closure. Subcutaneous tissue was additionally irrigated and the skin closed with running subcuticular 3-0 Vicryl. Steri-Strips were applied as was an Acticoat dressing. The patient tolerated the procedure well, was extubated without problem and taken to the recovery room in good condition having suffered no known complications. Sponge, needle, and instrument counts were reported as correct x3. Estimated blood loss was 200 mL in aggregate. MD JF Florence/MODL /[id number] cc: MD Alexei Mosquera MD Copies: ORACIO BALLARD MD Electronically Signed By: ELAINE BHAT MD 07/05/212102 PATIENT NAME: TERESA CHERRY OPERATIVE REPORT DATE OF : 61 REPORT #: [id number] PHYSICIAN: ELAINE BHAT MD PCP: ALEXEI JAMES MD REPORT IS CONFIDENTIAL AND NOT TO BE RELEASED WITHOUT AUTHORIZATION [facility] [address] [facility] [place] [address] Signed ALEXEI JAMES MD ~ Electronically Signed By: ELAINE BHAT MD 07/05/212102 PATIENT NAME: TERESA CHERRY OPERATIVE REPORT DATE OF : 61 REPORT #: [id number] PHYSICIAN: ELAINE BHAT MD PCP: ALEXEI JAMES MD REPORT IS CONFIDENTIAL AND NOT TO BE RELEASED WITHOUT AUTHORIZATION
--- NOTE | 2021-07-05 21:03 | DS ---
[facility] [address] [place], [place] [address] Signed ADMISSION DATE: 06/29/2021 DISCHARGE DATE: 07/05/2021 REASON FOR ADMISSION: This 55-year-old white woman has longstanding iron deficiency anemia and is followed by Dr. Mae and is a patient primarily of Dr. Alexei Olivo. She has long-standing noted to have iron deficiency anemia. She has undergone outpatient iron infusion for this over time. She presented to the hospital on this occasion with episodes of syncope. Her hemoglobin was found to be 5.7. She is admitted for further evaluation and care. PAST MEDICAL HISTORY: Does include duodenal switch operation performed in [place] in about 2004. She has underlying other medical problems including chronic adrenal insufficiency, chronic pain stone syndrome with fibromyalgia and takes meloxicam regularly. She additionally has gastroesophageal reflux and chronic episodic hypotension, likely related to her adrenal insufficiency as well as iron deficiency anemia. She has been admitted for further evaluation and care. PERTINENT PHYSICAL EXAMINATION: GENERAL: Showed a chronically ill-appearing white woman who is alert and oriented and cooperative and in no physical distress. CHEST: Clear. HEART: Regular without murmur. ABDOMEN: Soft without palpable mass, ascites or tenderness. EXTREMITIES: Showed no clubbing, cyanosis, or edema. LABORATORY STUDIES: Showed normal electrolytes. Creatinine of 1.09, hematocrit after 2 units transfusion was 30.2. White count was 6.1, platelets 202,000. Urinalysis was essentially normal. HOSPITAL COURSE: The patient was admitted, given intravenous fluids and transfusion as noted. She was admitted by Dr. Barrios. Consultation was undertaken with me in General Surgery and plans were made for upper endoscopy to better assess a source of possible more acute iron-deficiency anemia (other than anatomic abnormalities related to duodenal switch procedure) as well as for colonoscopy to assess for other etiologies of progressive iron deficiency anemia. After bowel preparation, she underwent upper endoscopy as well as colonoscopy on July 01, 2021. Her upper gastrointestinal anatomy was consistent with duodenal switch operation and there was no sign of lesion to account for anemia. On colonoscopy, however, she did have an obvious malignant neoplasm at 18 cm. Electronically Signed By: ELAINE BHAT MD 07/05/212102 PATIENT NAME: TERESA CHERRY DISCHARGE SUMMARY DATE OF : 61 REPORT #: [id number] PHYSICIAN: ELAINE BHAT MD PCP: ALEXEI OLIVO MD REPORT IS CONFIDENTIAL AND NOT TO BE RELEASED WITHOUT AUTHORIZATION [facility] [address] [place], [place] [address] Signed She underwent additional preparation and on July 02, 2021, underwent sigmoid colectomy with side-to-end coloproctostomy. She underwent perioperative nerve block for postoperative pain control (bilateral midaxillary and subcostal TAP blocks). At operation, was a bulky tumor of the sigmoid. No evidence of metastatic disease locally or elsewhere. She was maintained with Gibbs catheter postoperatively overnight for two days and was given stress dose steroids pre and postoperatively. She was begun on a clear liquid diet the night of procedure, which she tolerated well and on 1st postoperative day was fully taking liquids and advanced to full liquids. She had progressive improvement including bowel function including bowel movements and so forth and tolerated a regular diet. By postop day #3, she was ready for discharge. Lab studies on July 03, 2021 include a hematocrit of 32.0, platelets of 227,000. Chem profile which is normal except for a potassium slightly low at 3.4, creatinine of 1.14, magnesium 2.5. She is discharged to home in good condition, tolerating a regular diet, oral pain medication and having normal bowel movements. FOLLOWUP PLAN: She is to return to see me in approximately 4 weeks. We await the final pathology report as there is some suspicion of mesenteric lymph nodes being involved with tumor. DISCHARGE MEDICATIONS: Will include: 1. Percocet 7.5/325 1-2 p.o. q.6 hours p.r.n. pain #6. 2. Tylenol plain 500 mg two tablets p.o. q.6 hours as needed for mild pain, #60. 3. She will resume her usual chronic medications including Lecanto 1 tablet p.o. t.i.d. as needed. 4. Esomeprazole (Nexium 20 mg p.o. b.i.d.). 5. Tizanidine 4 mg p.o. t.i.d. 6. Duloxetine (Cymbalta) 60 mg two tablets p.o. at bedtime. 7. Gabapentin (Neurontin) 300 mg tablets three tabs b.i.d. and gabapentin 300 mg two tablets p.o. q. afternoon. 8. Benadryl 25 mg p.o. as needed for allergies. 9. Fludrocortisone 0.1 mg tablets p.o. daily. 10. Hydrocortisone tablet 10 mg one p.o. b.i.d. 11. Synthroid 5 mcg two tablets p.o. b.i.d. 12. Tramadol 50 mg 1-2 p.o. q 12 hours p.r.n. pain. 13. Vitamin D3 1250 mcg 50,000 units two tablets p.o. weekly. DISCHARGE DIAGNOSES: Electronically Signed By: ELAINE BHAT MD 07/05/21 0201 PATIENT NAME: TERESA CHERRY DISCHARGE SUMMARY DATE OF : 61 REPORT #: [id number] PHYSICIAN: ELAINE BHAT MD PCP: ALEXEI OLIVO MD REPORT IS CONFIDENTIAL AND NOT TO BE RELEASED WITHOUT AUTHORIZATION [facility] [address] [place], [place] [address] Signed 1. Acute on chronic symptomatic anemia. 2. Upper endoscopy consistent with duodenal switch operation, no evidence of bleeding or ulcer. 3. Colonoscopy finding malignant neoplasm at 20 cm, status post sigmoid resection (low anterior resection). A side-to-end coloproctostomy. 4. Long-standing adrenal insufficiency. 5. Hypothyroidism. 6. Gastroesophageal reflux. FOLLOWUP PLAN: She is return to see me in approximately 4 weeks. She will additionally follow up with Dr. Alexei Olivo, the primary provider as needed. MD JF Florence/LUIS FERNANDOL /[id number] cc: MD Jyoti Cooper MD Lohith Veerappa Reddy, MD Dr. Copies: ALEXEI OLIVO MD, CYNTHIA MD REDDY, LOHITH VEERAPPA MD ~ Electronically Signed By: ELAINE BHAT MD 07/05/21 2103 PATIENT NAME: TERESA CHERRY DISCHARGE SUMMARY DATE OF : 61 REPORT #: [id number] PHYSICIAN: ELAINE BHAT MD PCP: ALEXEI OLIVO MD REPORT IS CONFIDENTIAL AND NOT TO BE RELEASED WITHOUT AUTHORIZATION
--- NOTE | 2021-07-05 21:03 | CONS ---
[facility] [address] [place], [place] [address] Signed DATE OF CONSULTATION: 06/30/2021 CONSULTING PHYSICIAN: Elaine Bhat MD REQUESTING PHYSICIAN: Dr. Ballard. PROBLEM: Anemia, longstanding. HISTORY OF PRESENT ILLNESS: This 55-year-old white woman, who was admitted to the hospital having presented to the emergency room with a hemoglobin of only 5. She has had no overt hematemesis, but was thought to have dark stool per rectum. 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 Indeed, she gets iron infusions on an episodic basis. She did have upper endoscopy and colonoscopy in November of 2017, showing moderate gastritis and hiatal hernia and colonic polyps. Of most dominant importance, however, she does have a history of duodenal switch bariatric procedure in [place] in about 2004. Additionally, she has long-standing adrenal insufficiency and chronic pain syndrome with fibromyalgia and does take meloxicam on a routine basis. She does not smoke or use alcohol. MEDICATIONS: Include fludrocortisone and hydrocortisone on a daily basis as well as Synthroid, duloxetine, gabapentin, diphenhydramine, and cholecalciferol. REVIEW OF SYSTEMS: She denies any shortness of breath or chest pain. Denies any dysphagia. Has had no hematemesis. Has had dark stool from time to time, but no mary hematochezia proper. PHYSICAL EXAMINATION: GENERAL: Pleasant white woman, who looks chronically ill and is in bed. Her is nearby. HEENT: Trachea is midline. She has no carotid bruit. CHEST: Clear. HEART: Regular without murmur. ABDOMEN: Soft and easily palpated. There is no focal mass or tenderness. No sign of ascites. EXTREMITIES: Show no clubbing, cyanosis, or edema. Electronically Signed By: ELAINE BHAT MD [id number] PATIENT NAME: TERESA CHERRY CONSULTATION DATE OF : 61 REPORT #: [id number] PHYSICIAN: ELAINE BHAT MD PCP: ALEXEI JAMES MD REPORT IS CONFIDENTIAL AND NOT TO BE RELEASED WITHOUT AUTHORIZATION [facility] [address] [place], [place] [address] Signed ASSESSMENT: Her duodenal switch anatomy can be problematic on the basis of iron absorption and occult ulcer. She does take meloxicam on a routine basis for pain problems. The possibility of peptic disease is high. Upper endoscopy was requested and certainly can and should be performed to assess for an etiology of her iron-deficiency anemia. Additionally, colonoscopy might be considered. It has been nearly 4 years since her colonoscopy. She did have polyps as noted in her admission notes. The possibility of colon cancer or other causes of anemia are also considered. The risk of bleeding, infection, perforation, and other unforeseen complications was reviewed with her in detail. She understands and wished to proceed. We will plan to do this tomorrow with the assistance of anesthesia given her underlying numerous medical problems. A stress dose steroids, hydrocortisone 100 mg IV will be anticipated at time of colonoscopy. MD JF Florence/FLORI /[id number] cc: Oracio Ballard MD Copies: ORACIO BALLARD MD ~ Electronically Signed By: ELAINE BHAT MD 07/05/21 2103 PATIENT NAME: TERESA CHERRY CONSULTATION DATE OF : 61 REPORT #: [id number] PHYSICIAN: ELAINE BHAT MD PCP: ALEXEI JAMES MD REPORT IS CONFIDENTIAL AND NOT TO BE RELEASED WITHOUT AUTHORIZATION
--- NOTE | 2021-07-05 21:03 | OR ---
[facility] [address], [place] [address] Signed DATE OF OPERATION: 07/01/2021 SURGEON: Elaine Bhat MD PREOPERATIVE DIAGNOSES: 1. Iron deficiency anemia (chronic with acute exacerbation). 2. History of duodenal switch operation in 2004. 3. History of polyps on colonoscopy in 2018. POSTOPERATIVE DIAGNOSES: 1. Typical duodenal switch upper gastrointestinal anatomy. 2. Neoplasm at 20 cm, most likely malignant colon cancer; small polyp of rectum and left transverse colon. PROCEDURES: 1. Esophagogastroduodenoscopy with biopsies. 2. Total colonoscopy to cecum with cold snare polypectomy x1, cold morcellation polypectomy x1 and multiple biopsies of sigmoid tumor. ANESTHESIA: Intravenous sedation, propofol infusion, Juan Braden CRNA INDICATIONS: This 55-year-old white woman is a patient of Dr. Alexei Olivo. She has been undergoing iron transfusions for iron deficiency anemia under the direction of Dr. Mae. She does have history of upper endoscopy and colonoscopy performed in 2018 showing only mild gastritis and apparently polyps. She was admitted with a hematocrit of 15 with hemoglobin of 5 and was thought to have some dark stool per rectum. It is notable that she underwent duodenal switch operation in [place] in 2004. She additionally has long-standing adrenal insufficiency and chronic pain syndrome and fibromyalgia and takes meloxicam on a daily basis. She was admitted by Dr. Ballard and consultation undertaken at his direction for consideration of upper endoscopy. She is certainly an appropriate candidate for that; it is acknowledged that duodenal switch operation is very prone to iron deficiency anemia as the segment of maximal absorption (duodenum) is bypassed by enteric flow. I have recommended additionally concurrently colonoscopy on the basis of her prior history of polyps. She has undergone a bowel prep. She did not undergo upper endoscopy and colonoscopy. She has been transfused at the time of admission and is clinically doing well. Electronically Signed By: ELAINE BHAT MD 07/05/21 2103 PATIENT NAME: TERESA CHERRY OPERATIVE REPORT DATE OF : 61 REPORT #: [id number] PHYSICIAN: ELAINE BHAT MD PCP: ALEXEI OLIVO MD REPORT IS CONFIDENTIAL AND NOT TO BE RELEASED WITHOUT AUTHORIZATION [facility] [address], [place] [address] Signed FINDINGS: Upper endoscopy showed anatomy typical of duodenal switch operation. There was no sign of neoplasm or ulceration, but she did have mild chronic gastritis. Colonoscopy showed a minimally adequate bowel prep, however, it was easily identified a neoplasm at 20 cm, most consistent with colon cancer. Additionally, there was a small polyp of the left transverse colon and the rectum, both excised. DESCRIPTION OF PROCEDURE: The patient was brought to the endoscopy suite and placed in the lateral decubitus position and undergoing lidocaine hypopharyngeal spray anesthesia. A bite block was placed. A full cardiopulmonary monitoring, intravenous sedation was induced with propofol infusional technique by the body shop floorperson. An Olympus video upper endoscope was passed in the hypopharynx. Notably, poor dentition was noted. Scope was advanced to the esophagus, throughout its length it was normal. Scope entered the stomach, which had a tubular configuration highly typical of duodenal switch operations. The pylorus was normal. There was no sign of ulceration of the stomach. There was mild chronic gastritis. The scope was passed into the duodenum (actually jejunum but consider the willie duodenum) showing no evidence of abnormality. Biopsies obtained there nevertheless to assess for celiac disease. The scope was withdrawn and biopsies then taken of the antrum and proximal stomach for both JERRY and pathologic testing. Retroflexed view which was slightly challenging on the basis of her narrow tubular stomach showed the GE junction without sign of ulceration, though there was a small hiatal hernia. The scope was straightened and then withdrawn and the biopsies obtained of the distal and mid esophagus. The scope was removed. Plans were then made for colonoscopy. Digital rectal examination was normal. An Olympus video colonoscope was passed in the rectum and manipulated noting at approximately 20 cm, a bulky friable neoplasm consistent with colon cancer. The scope was passed beyond this and with fair amount of irrigation due to poorly prepped bowel, scope ultimately was able to intubate the cecum. The scope was withdrawn from that point and examination showed no sign of abnormality into the left transverse colon. A small sessile polyp was excised with cold snare technique and passed for pathology. The scope was further withdrawn ultimately encountering the neoplasm at 20 cm. This was ultimately biopsied and marked with Endomark tattoo dye for future reference for resection. The scope was further withdrawn and a small polyp of the rectum was excised with cold morcellation technique. The scope was removed after retroflexed view which showed no other findings. The patient was then taken to the recovery room in good condition having suffered no complication. CONCLUDING DIAGNOSIS: Iron deficiency anemia, almost certainly related to colonic neoplasm. Electronically Signed By: ELAINE BHAT MD 07/05/21 2103 PATIENT NAME: TERESA CHERRY OPERATIVE REPORT DATE OF : 61 REPORT #: [id number] PHYSICIAN: ELAINE BHAT MD PCP: ALEXEI OLIVO MD REPORT IS CONFIDENTIAL AND NOT TO BE RELEASED WITHOUT AUTHORIZATION [address] [place] [address] Signed PLAN: Recommend sigmoid resection. We will make plans to do this tomorrow if possible and do a more vigorous bowel prep in the meantime. MD JF Florence/FLORI /[id number] cc: MD Clint Mosquera MD Russell Barr Harrison, MD Copies: ORACIO BALLARD MD, ROBERT C MD HARRISON, RUSSELL BARR MD ~ Electronically Signed By: ELAINE BHAT MD 07/05/21 2103 PATIENT NAME: TERESA CHERRY OPERATIVE REPORT DATE OF : 61 REPORT #: [id number] PHYSICIAN: ELAINE BHAT MD PCP: ALEXEI OLIVO MD REPORT IS CONFIDENTIAL AND NOT TO BE RELEASED WITHOUT AUTHORIZATION
--- NOTE | 2021-07-07 14:16 | PATH ---
[facility] [address], [place] [address] Signed SPECIMEN(S): A SIGMOID PORTION RECTUM SPECIMEN SOURCE: A. SIGMOID PORTION RECTUM CLINICAL HISTORY: Neoplasm of sigmoid colon. Anemia, syncope, ILEANA. FINAL PATHOLOGIC DIAGNOSIS: Sigmoid colon and portion of rectum, low anterior resection: - Invasive adenocarcinoma with the following features: - Macroscopic Evaluation of Mesorectum: Complete. - Tumor Site: Rectosigmoid. - Tumor Location: Entirely above the anterior peritoneal reflection. - Histologic Type: Adenocarcinoma. - Histologic grade: G2, moderately differentiated. - Tumor size: 4.5 x 3.3 x 0.7 cm. - Multiple Primary Sites: Not applicable (no additional primary sites present). - Tumor extent: Tumor invades through muscularis propria into pericolorectal tissue. - Macroscopic tumor perforation: Not identified. - Lymphovascular invasion: Not identified. - Perineural invasion: Present. - Treatment effect: No known presurgical therapy. - Margins: All margins negative for invasive carcinoma. - Distance from invasive carcinoma to radial (circumferential margin): 3.3 cm. - Margin status for noninvasive tumor: All margins negative for high-grade dysplasia/intramucosal carcinoma and low-grade dysplasia. - Regional lymph nodes: Regional lymph nodes present. - Tumor present in regional lymph nodes: - Number of lymph nodes with tumor: 1. - Number of lymph nodes examined: 15. - Tumor deposits: Not identified. - Additional pathologic findings: Diverticulosis. - Mismatch repair (MMR) studies by IHC: Refer to previously performed testing ([id number]), interpreted as normal pattern with PATIENT NAME: TERESA CHERRY PATHOLOGY DATE OF : 61 REPORT #: [id number] PHYSICIAN: MIKAYLA PATHOLOGY PCP: ALEXEI JAMES MD REPORT IS CONFIDENTIAL AND NOT TO BE RELEASED WITHOUT AUTHORIZATION [facility] [address], [place] [address] Signed intact nuclear expression MLH1, MSH2, MSH6, and PMS2. - Pathologic stage classification (pTNM, AJCC 8th ed.): pT3 pN1a. COMMENT: As part of [employer]' Quality Improvement Program, this case was reviewed by another member of our pathology staff. NAL:NRT:cml:C1NR MICROSCOPIC EXAMINATION: Histologic sections of all submitted blocks are examined by light microscopy. These findings, together with the gross examination, support the pathologic diagnosis. GROSS DESCRIPTION: The specimen, labeled "RC, sigmoid and portion of rectum," is received in formalin and consists of portion of rectum and attached sigmoid that is 22 cm in length and average inner circumference is 7.2 cm. Distal resection margin is in the level of serosal reflection. Specimen is previously opened. The mesorectum is smooth and intact. The mesorectum is inked black and serosal surface closest to the mass is inked blue. Opening of the specimen reveals pink-mcclure, fungated mass that measures 4.5 x 3.3 x 0.7 cm. The mass is above peritoneal reflection and on posterior wall. The mass is 13 cm from proximal margin, 4.2 cm from distal margin, 3.3 cm from radial margin, 10 cm from vascular root resection margin and 1.2 cm from serosa. Sectioning through the mass reveals pink-mcclure, homogenous tissue. The mass extended in the bowel wall but crossing to the outside surface and pericolonic fat is not grossly identified. The remaining of the mucosa is smooth and corrugated. It shows several diverticula. The uninvolved bowel wall measures up to 0.3 cm in thickness. Sectioning through pericolonic fibroadipose tissue reveals 29 pink-mcclure possible lymph nodes that range in size from 0.2-1.7 cm in greatest dimension. Cassette Summary: (A1) Proximal margin, shave (A2) Distal margin, shave (A3) Vascular root margin, shave (A4) Radial margin, closest to the mass (A5-A6) Mass to uninvolved tissue (A7) Mass, deepest section PATIENT NAME: TERESA CHERRY PATHOLOGY DATE OF : 61 REPORT #: [id number] PHYSICIAN: MIKAYLA MALIK PCP: ALEEXI JAMES MD REPORT IS CONFIDENTIAL AND NOT TO BE RELEASED WITHOUT AUTHORIZATION [facility] [address] [place], [place] [address] Signed (A8-A9) Mass additional sections (A10) Mass to closest serosal section (A11) Diverticula, service support representative section (A12) Uninvolved bowel wall (A13) Five possible lymph nodes, entirely submitted (A14) Six possible lymph nodes, entirely submitted (A15) Six possible lymph, entirely submitted (A16) Six possible lymph nodes, entirely submitted (A17) Five possible lymph nodes, entirely submitted (A18) One possible lymph node, bisected, entirely submitted JS (under the direct supervision of a pathologist) The Gross Description was prepared using a voice recognition system. The report was reviewed for accuracy; however, sound-alike word errors, addition and/or deletions may occur. If there is any question about this report, please contact Client Services. PERFORMING LABORATORY: The technical component was performed by [employer], [address] [place] [id number] (Waitress: Temitope Peterson MD; CLIA# [id number]).[facility], [address] [place] [address] (CLIA# [id number]). Diagnostician: Helga Jack MD Pathologist Electronically Signed 07/07/2021 Copies: ~ PATIENT NAME: TERESA CHERRY PATHOLOGY DATE OF : 61 REPORT #: [id number] PHYSICIAN: MIKAYLA MALIK PCP: ALEXEI JAMES MD REPORT IS CONFIDENTIAL AND NOT TO BE RELEASED WITHOUT AUTHORIZATION
== END 2021-07-05 15:15 | disposition home or self-care (01) | DRG 330 ==
LOC: ED 20:34 → CCU 20:36 → MS 20:36 → CCU 20:36 → MS 07-01 03:14
PROVIDERS: Surgery; ADMIT Internal Medicine; ATTEND Internal Medicine
PROC: 0DBH8ZZ Excision of Cecum, Via Natural or Artificial Opening Endoscopic (ICD-10-PCS; 2021-07-01)
PROC: 0DBN8ZX Excision of Sigmoid Colon, Via Natural or Artificial Opening Endoscopic, Diagnostic (ICD-10-PCS; 2021-07-01)
PROC: 0DB98ZX Excision of Duodenum, Via Natural or Artificial Opening Endoscopic, Diagnostic (ICD-10-PCS; 2021-07-01)
PROC: 0DB68ZX Excision of Stomach, Via Natural or Artificial Opening Endoscopic, Diagnostic (ICD-10-PCS; 2021-07-01)
PROC: 0DB28ZX Excision of Middle Esophagus, Via Natural or Artificial Opening Endoscopic, Diagnostic (ICD-10-PCS; 2021-07-01)
PROC: 0DB38ZX Excision of Lower Esophagus, Via Natural or Artificial Opening Endoscopic, Diagnostic (ICD-10-PCS; 2021-07-01)
PROC: 30233N1 Transfusion of Nonautologous Red Blood Cells into Peripheral Vein, Percutaneous Approach (ICD-10-PCS; principal; 2021-07-01 12:00)
PROC: 0DTN0ZZ Resection of Sigmoid Colon, Open Approach (ICD-10-PCS; 2021-07-02)
PROC: 0DTP0ZZ Resection of Rectum, Open Approach (ICD-10-PCS; 2021-07-02)
PROC: 0D1N0ZP Bypass Sigmoid Colon to Rectum, Open Approach (ICD-10-PCS; 2021-07-02)
DX: C19 Malignant neoplasm of rectosigmoid junction (principal); D62 Acute posthemorrhagic anemia; S32.028A Other fracture of second lumbar vertebra, initial encounter for closed fracture; N17.9 Acute kidney failure, unspecified; E27.40 Unspecified adrenocortical insufficiency; I10 Essential (primary) hypertension; K21.9 Gastro-esophageal reflux disease without esophagitis; E03.9 Hypothyroidism, unspecified; G89.4 Chronic pain syndrome; D50.9 Iron deficiency anemia, unspecified; K29.70 Gastritis, unspecified, without bleeding; Z20.822 Contact with and (suspected) exposure to COVID-19; M79.7 Fibromyalgia; Z98.84 Bariatric surgery status; Z90.89 Acquired absence of other organs; Z98.890 Other specified postprocedural states; Z79.899 Other long term (current) drug therapy; W18.39XA Other fall on same level, initial encounter
CPT/HCPCS: 00790; 36430; 64488; 70450; 71250; 72125; 72128; 72131; 74177; 76705; 76942; 80048; 80053; 80503; 81001; 82378; 83735; 85025; 86850; 86900; 86901; 86922; 93005; 93010; 96374; 96376; 99285-25; A9270; C9113; C9803; G0378; J0330; J0694; J1100; J1720; J1885; J2001; J2270; J2370; J2704; J2795; J3010; J3475; J3480; J7060; J7121; P9016; Q9967; U0003

== ENCOUNTER 2021-08-06 07:13 | Day surgery (SDC) | payer BC, OTHER ==
[~2021-08-06] VITALS: Ht 162.6 cm; Wt 63.6 kg
[~2021-08-06 07:13] MED LIST changes: +ACETAMINOPHEN500 MG PO; +ATIVAN1 MG PO; +COPPER2 M1 PO; +DECADRON4 MG PO; +LEVOTHYROXINE13 MCG PO; +LIOTHYRONINE SO5 MCG PO; +MELOXICAM15 MG PO; +NEXIUM20 MG PO; +ONDANSETRON ODT8 MG PO; +OXYCODON-ACETA1 EAC2 PO; +ULTRAM50 MG PO; +VITAMIN D310 MC4 PO; +VITAMIN D31250 MC1 PO; +VITAMIN D325 GM MISC
--- NOTE | 2021-08-06 14:08 | NUR ---
08/06/21 1408 Clementine Coelho 1349 PATIENT ARRIVES TO PACU UNRESPONSIVE TO PAIN, ORAL AIRWAY IN PLACE. RESP EVEN AND UNLABORED, MASK AT 10 LITERS 1350 MASK DECREASED TO 6 LITERS. 1352 PATIENT OPENS EYES WITH VERBAL STIMULI. MOUTH SUCTIONED WITH CLEAR SECRETIONS. ORAL AIRWAY REMOVED. RESP EVEN AND UNLABORED, MASK CONTINUED AT 6 LITERS. 1400 XRAY AT BEDSIDE. PATIENT MASK OFF. RESP EVEN AND UNLABORED, ROOM AIR SATS >93%. PATIENT C/O RIGHT SHOULDER PAIN. PATIENT INCONTINENT OF URINE, GOWN CHANGED AND WARM BLANKET GIVEN.
--- NOTE | 2021-08-06 14:45 | NUR ---
1445-PATIENT BACK TO ROOM FROM PACU ON RA. RECEIVED REPORT FROM KRISH PEARL. PATIENT IS AWAKE AND LAYING IN BED. RATES PAIN 7/10. DENIES NAUSEA. DRESSINGS ARE CLEAN DRY AND INTACT. ICE PACK IN PLACE. PATIENT NOTED HER BED SHEETS ARE WET AND HER DEPENDS SOILED. CHANGED SHEETES AND GOWN AND GIVEN NEW DEPENDS. 1500-PATIENT AMBULATES TO BATHROOM. GAIT STEADY AND TOLERATED WELL. SHE VOIDED A SMALL AMOUNT. CALL LIGHT WITHIN REACH. 1505-PATIENT BACK TO ROOM. PATIENT EATING PUDDING AND CRACKERS. DENIES NAUSEA. CALL LIGHT WITHIN REACH. 1511-PAIN MEDICATION GIVEN PER EMAR.
--- NOTE | 2021-08-06 15:55 | NUR ---
PATEINT LAYING IN BED WATCHING TV. RESP EVEN AND UNLABORED. RATES PAIN 5/10 AND DENIES NAUSEA. BOTH DRESSINGS ARE CLEAN, DRY, AND INTACT. ICE PACK IN PLACE. CALL LIGHT WITHIN REACH. PATIENT IS READY TO GO HOME.
--- NOTE | 2021-08-06 16:08 | NUR ---
1603-PROVIDED DISCHARGE INSTRUCTIONS. ALL QUESTIONS ANSWERED. RATES PAIN 5/10. DENINES NAUSEA. WAITING ON TO PICK HER UP.
--- NOTE | 2021-08-07 09:27 | OR ---
[facility] [address], [place] [address] Signed DATE OF OPERATION: 08/06/2021 SURGEON: Shivani Vazquez MD PREOPERATIVE DIAGNOSIS: Stage III sigmoid colon cancer. POSTOPERATIVE DIAGNOSIS: Stage III sigmoid colon cancer. PROCEDURE: 1. Placement of right IJ [id number]. 2. Physician directed ultrasound. 3. Physician directed fluoroscopy. ESTIMATED BLOOD LOSS: None. INDICATIONS: Teresa is a 55-year-old female, who has just undergone a recent sigmoid resection for her stage III colon cancer. She had been asked to see me expeditiously in the office to place her [id number] for upcoming chemotherapy. I had met with Teresa and her in the office. I reviewed within the nature of her [id number]. They understand the expected intraop and postop course. There is risk to surgery including, but not limited to bleeding, infection, scarring, change in contour of the skin, pneumothorax requiring chest tube placement, and other unforeseen comorbidities. They had expressed understanding and wished to proceed. DESCRIPTION OF PROCEDURE: I met with Teresa and her in our preop area. After this, she was taken in the operating room and placed in the supine position under general anesthesia. She was given preoperative antibiotics along with subcutaneous heparin. SCDs were utilized. She was then prepped and draped in the usual sterile fashion. We used the ultrasound to locate the right internal jugular vein. We passed the needle and quite readily on the first pass without difficulty. We had return of dark nonpulsatile venous blood. The wire was inserted without any resistance whatsoever. The position of the wire was checked with our fluoroscopy unit. We then made an oblique incision on the chest wall below the right clavicle and developed subcutaneous pocket. A small bernarda was made in the skin on her neck next to the wire and the track was dilated. The position of the dilator was checked with the help of the fluoroscopy unit. We then passed the catheter Electronically Signed By: SHIVANI VAZQUEZ MD 08/07/21 0927 PATIENT NAME: TERESA CHERRY OPERATIVE REPORT DATE OF : 61 REPORT #: [id number] PHYSICIAN: SHIVANI VAZQUEZ MD PCP: ALEXEI JAMES MD REPORT IS CONFIDENTIAL AND NOT TO BE RELEASED WITHOUT AUTHORIZATION [facility] [address], [place] [address] Signed into about 12 cm and we tunneled underneath the skin onto the chest wall. The catheter was able to flush and draw readily. We then trimmed the catheter length and put to length and placed the hub on the catheter. We rechecked the position of our catheter with the fluoroscopy unit and a plain film in the OR, and it seemed to be in much more than usual. We consulted with the radiologist and sure enough that was in the right atrium. It was recommended we pull back 4 cm. We, therefore, pulled the catheter back 4 cm and trimmed at the length and reinserted the hub. Again, the catheter was able to flush and draw quite readily. We then filled with concentrated heparin. It was held in place on the chest wall with interrupted Prolene sutures. The subcutaneous tissue and dermis were reapproximated in interrupted 3-0 subcuticular Monocryl sutures. We used a 5-0 Monocryl to close the dermis of the small incision on her neck. The skin was then reapproximated with 5-0 running fast absorbing plain gut suture. Dry gauze and tape were then applied. Teresa was awakened from anesthesia, extubated in the OR, and taken to recovery room in stable condition. Shivani Vazquez MD ALB/MODL /[id number] cc: MD Shivani Cooper MD Robert C Quackenbush, MD Copies: ALEXEI JAMES MD, ANDREW L MD QUACKENBUSH, ROBERT C MD ~ Electronically Signed By: SHIVANI VAZQUEZ MD 08/07/21 0927 PATIENT NAME: TERESA CHERRY OPERATIVE REPORT DATE OF : 61 REPORT #: [id number] PHYSICIAN: SHIVANI VAZQUEZ MD PCP: ALEXEI JAMES MD REPORT IS CONFIDENTIAL AND NOT TO BE RELEASED WITHOUT AUTHORIZATION
== END 2021-08-06 16:03 | disposition home or self-care (01) ==
LOC: DS 07:13
PROVIDERS: ATTEND Colon & Rectal Surgery
PROC: 0JH63WZ Insertion of Totally Implantable Vascular Access Device into Chest Subcutaneous Tissue and Fascia, Percutaneous Approach (ICD-10-PCS; principal; 2021-08-06 09:45)
DX: C18.7 Malignant neoplasm of sigmoid colon (principal); E03.9 Hypothyroidism, unspecified; K21.9 Gastro-esophageal reflux disease without esophagitis; Z20.822 Contact with and (suspected) exposure to COVID-19; Z91.040 Latex allergy status
CPT/HCPCS: 71045; 77001; 85025; 86850; 86900; 86901; J0690; J1100; J1644; J2405; J2704; J2920; J3010; J7121; U0003

== ENCOUNTER 2021-08-13 08:45 | Day surgery (SDC) | payer BC, OTHER ==
[~2021-08-13] VITALS: Ht 162.6 cm; Wt 63.6 kg
--- NOTE | 2021-08-13 14:27 | NUR ---
08/13/21 1427 Sheets,Alexa 1358 PT ARRIVED TO PACU ON 6L VIA MASK, PT WAKES EASILY AND DENIES PAIN. X RAY CALLED PER MD. VSS. 1405 X-RAY AT BEDSIDE AND HOB INCREASED. PT RPEORTS THE NEED TO VOID. 1408 O2 REMOVED AND PT AWAKE AND TALKING TO RN, PT REPORTS CHRONIC PAIN IN BACK AND NECK, PAIN AT SURGICAL SITE 10/19. 1415 REPORT TO DS RN AND PT UP TO BATHROOM AND VSS.
--- NOTE | 2021-08-13 14:49 | NUR ---
AMBULATES TO BR UPON RETURNING TO DS. STEADY ON FEET WITH ONE PERSON STAND BY ASSIST. UNMEASURED URINE IN BR. DENIES NAUSEA BUT REPORTS 7/10 RIGHT CHEST WALL PAIN. MEDICATED PER EMAR. PT STATES SHE FEELS READY TO GO HOME INSPITE OF HER HIGH PAIN RATING.
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
== END 2021-08-13 15:20 | disposition home or self-care (01) ==
LOC: DS 08:45
PROVIDERS: ATTEND Colon & Rectal Surgery
PROC: 0JPV0WZ Removal of Totally Implantable Vascular Access Device from Upper Extremity Subcutaneous Tissue and Fascia, Open Approach (ICD-10-PCS; principal; 2021-08-13 11:15)
PROC: 0JH60WZ Insertion of Totally Implantable Vascular Access Device into Chest Subcutaneous Tissue and Fascia, Open Approach (ICD-10-PCS; 2021-08-13 11:15)
DX: T82.524A Displacement of infusion catheter, initial encounter (principal); C18.7 Malignant neoplasm of sigmoid colon; E03.9 Hypothyroidism, unspecified; K21.9 Gastro-esophageal reflux disease without esophagitis; Z91.040 Latex allergy status; Z20.822 Contact with and (suspected) exposure to COVID-19; Y82.8 Other medical devices associated with adverse incidents; Z87.828 Personal history of other (healed) physical injury and trauma
CPT/HCPCS: 71045; 77001; J0131; J0690; J1100; J1644; J2001; J2405; J2704; J3010; J7121; U0003

== ENCOUNTER 2021-09-13 09:06 | Emergency (ER) | payer BC, OTHER ==
[~2021-09-13] VITALS: Ht 160 cm; Wt 65.3 kg
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
[2021-09-13] MEDS ORDERED: ONDANSETRON ODT8 MG PO (13:26)
[2021-09-13] MEDS ORDERED: KLOR-CON M1010 MEQ PO (13:26)
== END 2021-09-13 14:40 | disposition home or self-care (01) ==
LOC: ED 09:06
DX: E87.6 Hypokalemia (principal); R11.0 Nausea; R53.1 Weakness; Z91.040 Latex allergy status; Z79.899 Other long term (current) drug therapy; Z79.891 Long term (current) use of opiate analgesic
CPT/HCPCS: 36415; 71045; 71260; 80053; 83880; 84484; 85025; 85060; 85379; 99285-25; J3480; J7030; J7060; Q9967

== ENCOUNTER 2021-09-21 08:24 | Inpatient (IN) | payer BC, OTHER ==
[~2021-09-21] VITALS: Ht 160 cm; Wt 60.7 kg
[~2021-09-21 08:24] MED LIST changes: +KLOR-CON M1010 MEQ PO
--- OUTSIDE RECORDS SUMMARY | 2021-09-21 08:26 | XMS ---
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 E.DMadisyn VISIT COUNT (12 MO.) 1 [facility] [place] 5 [facility] TOTAL 6 NOTE: Visits indicate total known visits. 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) use of opiate analgesic - Nausea 06/29/2021 20:35 [facility] [place] TYPE: Emergency COMPLAINT: - DIZZINESS, FLU SYMPTOMS 04/07/2021 17:59 [facility] [place] TYPE: Emergency DIAGNOSES: - Unspecified open wound of unspecified finger without damage to nail, initial encounter - wound check 03/23/2021 07:12 [facility] [place] TYPE: Emergency COMPLAINT: - L HAND PAIN DIAGNOSES: - Local infection of the skin and subcutaneous tissue, unspecified - Other rat exterminator (current) drug therapy - Cellulitis of left upper limb - Encounter for immunization - Myalgia, unspecified site - Contact with and (suspected) exposure to COVID-19 - Other synovitis and tenosynovitis, left hand 03/22/2021 14:15 [facility] [place] TYPE: Emergency COMPLAINT: - L HAND INJURY DIAGNOSES: - Contact with other sharp object(s), not elsewhere classified, initial encounter - Disorder of kidney and ureter, unspecified - Other rat exterminator (current) drug therapy - Unspecified open wound of left middle finger without damage to nail, initial encounter - Civilian activity done for income or pay - Myalgia, unspecified site - Unspecified injury of left wrist, hand and finger(s), initial encounter - Cellulitis of left finger INPATIENT VISIT TRACKING (12 MO.) 07/01/2021 12:[address] [facility] [place] TYPE: Medical Surgical COMPLAINT: - ANEMIA, SYNCOPE, ILEANA DIAGNOSES: - Gastritis, unspecified, without bleeding - Other fall on same level, initial encounter - Essential (primary) hypertension - Malignant neoplasm of rectosigmoid junction - Chronic or unspecified gastric ulcer with hemorrhage - Unspecified adrenocortical insufficiency - Acute kidney failure, unspecified - Other assisted (current) drug therapy - Bariatric surgery status - Other fracture of second lumbar vertebra, initial encounter for closed fracture - Acute posthemorrhagic anemia - Other specified postprocedural states - Gastritis, unspecified, without bleeding - Other fall on same level, initial encounter - Acute kidney failure, unspecified - Essential (primary) hypertension - Contact with and (suspected) exposure to COVID-19 - Chronic pain syndrome - Unspecified adrenocortical insufficiency - Anemia, unspecified - Gastro-esophageal reflux disease without esophagitis - Bariatric surgery status - Acute posthemorrhagic anemia - Iron deficiency anemia, unspecified - Other rat exterminator (current) drug therapy - Hypothyroidism, unspecified - Acquired absence of other organs - Iron deficiency anemia, unspecified - Gastro-esophageal reflux disease without esophagitis - Fibromyalgia - Chronic pain syndrome - Hypothyroidism, unspecified - Malignant neoplasm of rectosigmoid junction - Other fracture of second lumbar vertebra, initial encounter for closed fracture - Acquired absence of other organs - Other specified postprocedural states - Unspecified chronic gastritis with bleeding - Fibromyalgia 04/07/2021 17:59 [facility] [place] TYPE: Surgery DIAGNOSES: - Unspecified open wound of unspecified finger without damage to nail, initial encounter 03/23/2021 20:16 [facility] [place] TYPE: Surgery DIAGNOSES: - Abscess on third digit L hand - Synovitis and tenosynovitis, unspecified [id number]
--- NOTE | 2021-09-21 14:30 | NUR ---
PATIENT ARRIVED FROM ED WITH PNEUMONIA AND UTI WITH SEPSIS. THE PATIENT WAS ABLE TO STAND AND PIVOT TO THE BED. WET COUGH NOTED UPON ARRIVAL. PATEITN STARTED ON IV ANTIBIOTICS. REMAINED ON ROOM AIR.
--- NOTE | 2021-09-21 14:30 | NUR ---
PATIENT WITH MULTIPLE AREAS OF BRUISING ON EXTREMETIES, INCLUDING LOWER LEFT LEG/ANKLE, LEFT KNEE AND THIGH, RIGHT SIDE OF FACE. SHE DOES HAVE A PETECHIAL-LIKE RASH ON THE LEFT SIDE OF HER ABDOMEN, DENIES DISCOMFORT. PREVIOIUS MIDLINE INCISION FROM SURGER WITH DEHISSCENCE AND 1 CM CIRCULAR OPEN LESION NOTED. MINIMAL DRAINAGE. PATIENT HAS ADDITIONAL RIGHT THORAX/FLANK BRUISING WHICH SHE STATES WAS LIKELY FROM HER FALL THIS MORNING. THE PATIENT HAS REPORTED HAVING SEVERAL FALLS OVER THE LAST 2 WEEKS.
--- NOTE | 2021-09-21 14:41 | NUR ---
PATIENT PORT ASSESSMENT WITHIN NORMAL LIMITS. BLOOD RETURN WITH EASY WITHDRAW OF SYRINGE PLUNGER. FLUSHED. IV LINES WITH CHLORHEXIDINE CAPS IN PLACE FOR IV INFUSIONS.
[2021-09-21] MEDS ORDERED: FUROSEMIDE20 MG PO (14:47)
[2021-09-21] MEDS ORDERED: RENA-VITE RX T1 EACH PO (14:47)
--- NOTE | 2021-09-21 15:15 | NUR ---
PATIENT PROVIDED WITH ACAPELLA AND INCENTIVE SPIROMETER. EDUCATION PROVIDED ON USE. PATIENT DEMONSTRATES PROPER USE. OXYGEN SATURATION IMPROVES WITH USE OF PULMONARY DEVICES. ENCOURAGED TO USE FREQUENTLY EACH HOUR.
--- NOTE | 2021-09-21 16:05 | NUR ---
PATIENT OBSERVED USING ACAPELLA AND I/S ON OWN. ENCOURAGED TO CONTINUE USING. IMPROVEMENT NOTED IN LUNG CLANCY FOLLOWING USE. IMPROVED OXYGEN SATURATIONS.
--- NOTE | 2021-09-21 17:05 | NUR ---
PATIENT AMBULATED TO BATHROOM WITH ONE ASSIST. STEADY GAIT WHILE AMBULATING. URINE CLEAR, YELLOW. ABLE TO VOID WITHOUT ISSUE.
--- NOTE | 2021-09-21 20:00 | NUR ---
RECEIVED REPORT FROM DAY SHIFT NURSE . PT SITTING IN BED IN NO ACUTE DISTRESS. PT REPORTS CHRONIC PAIN WANTING PRN PAIN MEDS. PT CONTINUES WITH PRODUCTIVE COUGH . ON 2L FINE CRACKLES NOTED. RESP EVEN AND UNLABORED. CALL LIGHT WITHIN REACH WILL CONTINUE TO MONITORR.
--- NOTE | 2021-09-21 23:13 | NUR ---
ASSISTED PT TO BATHROOM , PT REQUIRING SBA DENIES ANY CONCERNS AT THIS TIME. RESP EVEN AND UNLABORED. CALL LIGHT WITHIN REACH WILL CONTINUE TO MONITOR.
--- NOTE | 2021-09-22 00:10 | NUR ---
PT RESTING IN BED IN NO ACUTE DISTRESS UP WATCHING TV NO COMPLAINTS AT THIS TIME. RESP EVEN AND UNLABORED. CALL LIGHT WITHIN REACH WILL CONTINUE TO MONITOR
--- NOTE | 2021-09-22 01:45 | NUR ---
CALL LIGHT USED BY PT. PT STATED SHE NEEDED TO VOID. PT ABLE TO AMBULATE TO THE BATHROOM ON 2L O2 NC, VOID 600ML AND GET BACK INTO THE BED WITH MINIMAL ASSISTANCE. PT NOW RESTING IN BED. PT REPORTS 9/10 PAIN TO THE SIDE OF HER HEAD AND NECK AND REQUESTED PRN PAIN MEDICATION. PRN NORCO ADMINISTERED (SEE MAR). PT REPORTS NO FURTHER NEEDS AT THIS TIME AND REMAINS IN BED. IVF INFUSING, PT ON 2L O2 NC. CALL LIGHT IN REACH, WILL CONTINUE PLAN OF CARE.
--- NOTE | 2021-09-22 05:09 | NUR ---
PT ASSISTED TO BATHROOM , TOLERATED WELL. RESP EVEN AND UNLABORED. DENIES ANY CONCERNS AT THIS TIME. REMAINS ON 2L SATS GREATER THAN 90. CALL LIGHT WITHIN REACH WILL CONTINUE TO MONITOR.
--- NOTE | 2021-09-22 08:30 | NUR ---
THIS RN IN TO SEE PATIENT AND DO AM ASSESSMENT. PATIENT IS LAYING IN BED. PATIENT NOTED TO HAVE MULTIPLE BRUISES ON RIGHT ORBITAL AREA, BILATERAL HANDS, LEFT THIGH AND ANKLE, AND RIGHT SHOULDER. PATIENT HAS A RASH/REDDENED AREA ON LEFT ABD. PATIENTS SCDS WERE PLACED ON BILATERALLY. BREATH SOUNDS CLEAR WITH FINE CRACKLES IN BASES. PATIENT WAS ON 1L OXYGEN THIS AM AND WAS TITRATED OFF AND SPO2 NOW 98% ON RA. BOWEL TONES ACTIVE. PATIENT COMPLAINS OF PAIN IN HER NECK WORSE THAN HER NORMAL ACHES AND PAIN. WILL UPDATE MD BALLARD. PATIENT DENEIS ANY OTHER NEEDS AT THIS TIME. WILL CONTINUE TO CLOSELY MONTIOR. CALL LIGHT IN REACH.
--- NOTE | 2021-09-22 09:00 | NUR ---
PAVEL PEARL UPDATED MD BALLARD OF PATIENTS COMPLAINTS OF NECK/BACK PAIN. NO NEW ORDERS AT THIS TIME. MD WILL BE IN TO ASSESS PATIENT.
[2021-09-22] MEDS ORDERED: POTASSIUM CITR15 MEQ PO (09:27)
[2021-09-22] MEDS ORDERED: DEXAMETHASONE4 MG PO (09:33)
[2021-09-22] MEDS ORDERED: MELOXICAM15 MG PO (09:35)
--- NOTE | 2021-09-22 10:05 | NUR ---
PATIENT DOWN FOR AN X-RAY TO FOLLOW-UP ON NECK PAIN. PATIENT STANDS AND MOVES WELL WITH NO ISSUES.
--- NOTE | 2021-09-22 10:10 | NUR ---
CALL LIGHT ANSWERED, SBA TO BR FOR VOID. LINENS CHANGED, IMAGING IN TO TAKE PATIENF FOR XRAY. RN AT BEDSIDE WELL.
--- NOTE | 2021-09-22 10:21 | NUR ---
PATIENT BACK FROM X-RAY AND WORKING WITH PHYSICAL THERAPY. NO OTHER NEEDS AT THIS TIME. WILL CONTINUE TO CLOSELY MONITOR.
--- NOTE | 2021-09-22 11:00 | NUR ---
REPORT GIVEN TO DWIGHT AND HER STUDENT AT THE BEDSIDE. ALL QUESTIONS ANSWERED. NO OTHER NEEDS AT THIS TIME. WILL CONTINUE TO CLOSELY MONITOR.
--- NOTE | 2021-09-22 11:10 | NUR ---
VANCO TROUGH = 20.1 SEEMS HIGH, BUT PRIOR DOSE WAS GIVEN 90 MINUTES LATE. KEPT DOSE THE SAME DUE TO PREDICTED ACTUAL TROUGH OF 18.5.
--- NOTE | 2021-09-22 11:30 | NUR ---
Pt arrives to medsurg unit room 109 from CCU 129. Pt currently on RA with no SOB, denies pain. VSS, A+O, assessment complete. IVF infusing WNL. All personal belongings transferred with patient and meds placed in MS tower. Pt oriented to call light/room, has no needs at this time. Call light in reach.
--- NOTE | 2021-09-22 11:42 | NUR ---
PATIENT STATES HER APPETITE IS COMING BACK. SHE HAS DIFFICULTY EATING FOR THE PAST 3 OR 4 MONTHS WITH CHEMO TX. HER NORMAL BODY WEIGHT IS 140-145 LBS. SHE WAS 133 LBS ON ADMISSION, INDICATING A 12 LB WEIGHT LOSS. TWO DAYS AGO, MONDAY, 09/21, SHE STARTED TAKING A DRINK OF LIDOCAIN AND SHE THINKS MAALOX TO COAT HER ESOPHAGUS BEFORE SHE EATS. SHE HAS PAIN IN HER LOWER ESOPHAGUS AREA WHEN SHE EATS. THE DRINK HELPS. SHE HAS NO NUTRITION NEEDS OR MAJOR CONCERNS AT THIS TIME. SHE DOES NOT FEEL SHE NEEDS ENSURE BUT I LET HER KNOW WE HAVE IT IF SHE DOESN'T EAT MUCH FOOD WHILE HERE. CONTINUE REGULAR DIET.
--- NOTE | 2021-09-22 12:23 | NUR ---
MED REC COMPLETE
--- NOTE | 2021-09-22 13:22 | NUR ---
JAMARCUS WAS ON PHONE, AND WATCHING TV. VITALA AND I&O CHARTED. CALL LIGHT IN REACH. NO FURTHER TASKS AT THIS TIME.
--- NOTE | 2021-09-22 13:37 | NUR ---
Notified by [employer] that pt BP low, pt assessed and BP retaken both arms with well fitting cuff, manual BP taken, consistently 80/50. Dr Barrios notified. Will continue to monitor. Pt having no symptoms- no dizziness or lightheadedness, palpitations, etc. Call light in reach.
--- NOTE | 2021-09-22 14:50 | NUR ---
Rounded on patient, BP increased to 85/55, pt requests GI cocktail and 2 tabs [place]. She is conversational, family member at bedside and engaged in care. She currently rates pain 10/10. Assessment complete. No other needs at this time, call light in reach.
--- NOTE | 2021-09-22 17:30 | NUR ---
Spoke with pt and she states she lives with her spouse, Taran in a home in [place]. No issues getting in or out of house. Pt states today would have been her 3rd chemo treatment. She denies issues with taking her meds, but DIL called and states pt is mixing up her medications. Pt works at the [employer]. States she has taken time off due to weakness. Plans on dc to her moms home and her spouse will assist both of them. She denies needs, but would consider a walker. States she does not use of need any DME.
--- NOTE | 2021-09-22 17:44 | NUR ---
JAMARCUS IS LAYING IN BED WATCHING TV. I&O CHARTED VITALS CHARTED. CALL LIGHT WITHIN REACH. NO FURTHER TASKS AT THIS TIME
--- NOTE | 2021-09-22 20:18 | NUR ---
CALL LIGHT ANSWERED. SBA TO BATHROOM AND BACK TO BED. ICE WATER REFILLED. NO OTHER NEEDS AT THIS TIME.
--- NOTE | 2021-09-22 20:50 | NUR ---
Up to br, voided dark yellow urine, back to bed, SBA. on room air, asks to be placed on 2L NC O2 at HS. alert and oriented. cooperative with assessments. Basically on room air except O2 at HS, moist non productive cough at this time, c/o sore throat and mouth, askes for Oragel, given. blinsters on lips and back of throat noted. took meds with small sips of water slowly, tolerated well. field start IV LAC patent. R port intat, patent. bruised areas R periorbital, arms and legs, healing, denies vision changes with eye bruise. IS and coronet at bedside, lungs dim at bases bilat. no sob with exertion. uses call light. Pt on neutropenic precautions
--- NOTE | 2021-09-22 23:08 | NUR ---
c/o back spasms, modicated with Tizidine muscle relaxant
--- NOTE | 2021-09-23 00:58 | NUR ---
PATIENT CALLED TO USE THE BATHROOM. SBA WITH FWW. PATIENT IS BACK IN BED. PATIENT C/O PAIN NUMBER 7. PRIMARY RN NOTIFIED. SCD'S BACK ON.
--- NOTE | 2021-09-23 02:50 | NUR ---
C/O BACK AND LEFT SHOULDER PAIN, MEDICATED WITH 2 NORCO AND ORAGEL PER MOUTH AND THROAT SORES
--- NOTE | 2021-09-23 06:02 | NUR ---
Pt awake, coop with blood draw through portacath. coop with assessment. Pts mother called this unit, report given, mother concerned about pt taking too many meds and being impulsive taking them too early or inappropriately and pt "craving the Gabapentin as this gives her a euphoric state of mind, like she is high or something, she is going to come and live with me, and Im concerned". mother instructed on several things that she could do to make sure Pt takes her meds on time and only what meds she is due. semi receptive. Pt counseled on above, stated "I only take my meds when they are due, I donot take them too early and I certainly do not take more than Varghese supposed to take". semireceptive to above information.
--- NOTE | 2021-09-23 08:00 | NUR ---
REPORT RECEIVED FROM NIGHT RN AND PT. CARE RESUMED. PT. IS ALERT AND ORIENTED TO ALL. SHE C/O CHRONIC NECK PAIN. ADMIN. PAIN MED. PT. ON RA AND O2 SAT. 98%. LUNGS CLEAR THROUGHOUT. SHE DEMONSTRATED USE OF I.S. PT. HAS SCATTERED BRUISING FROM FALLS.SHE AMBULATED FROM BED TO CHAIR WITH SBA AND TOLERATED WELL. PORT FLUSHES AND RETURNS BLOOD. IV ABX ADMIN. AND INFUSING. DISCUSSED MEDS, SAFETY AND PAIN MANAGEMENT. LEFT RESTING WITH CALL LIGHT IN REACH.
--- NOTE | 2021-09-23 13:31 | NUR ---
PT AMBULATING AND WORKING IN [place] WITH Pardeep BHARDWAJ. WILL CHECK BACK AGAIN
--- NOTE | 2021-09-23 14:30 | NUR ---
PT. C/O NECK PAIN. ADMIN PAIN MEDS. IV ABX ADMIN AND INFUSING THROUGHOUT PORT CATH. PORT FLUSHES WELL AND HAS BRISK BLOOD RETURN. PT. REPORTS COUGH IS BECOMING MORE PRODUCTIVE WITH I.S. USE. PT. LEFT RESTING WITH CALL LIGHT IN REACH.
--- NOTE | 2021-09-23 15:00 | NUR ---
Spoke with pt and she is standing in the room with IV twisted around the pump. Assisted pt to bed. Attempted to speak with pt about how she takes her meds. Pt does not believe she has an issue with taking her meds. Her family had called and had concerns. Called and spoke with her spouse, Taran. He states pt has had problems with taking meds for some time. Pt has been staying at the [facility] in an appartment and now has moved home as she has been ill. Spouse states he will get a med box and will assist pt. He also wants to know how to track her fluid intake. Instructed to fill 2-3 quart container and fill pts glass throughout the day until its gone. He will pick pt up on discharge and review meds.
--- NOTE | 2021-09-23 21:50 | NUR ---
in to get vitals, fresh water filled, pt is due to void
--- NOTE | 2021-09-23 22:09 | NUR ---
pt awake, alert and oriented. on room air. lungs dim at bases, moist productive at times cough present. R periorbilat bruised area heling, martha c/o visual changes, c/o mild pain. bruising areas arms and legs healing, edema LE legs elevated. R portacath patent, flushes easily, no c/o adverse reaction to abx. Up to br, voiding yellow urine. back to bed, cooperative. no sob noted on return. Oragel applied to red sore and blistering lips. tolerating liquids well. no emesis. wears attends. Pt instructed on to follow MDs instructions on DC home r/t meds, stated understanding.
--- NOTE | 2021-09-23 22:50 | NUR ---
RESTING, NO DISTRESS, ON ROOM AIR, DECLINED O2 AT HS TONIGHT AT THIS TIME. "SHELIA NOT GOING HOMW WITH OXYGEN". WILL CONT TO OBESRVE, CALL LIGHT AT HANDS REACH
--- NOTE | 2021-09-24 | NUR ---
IV ALARMING, RN IN TO CHECK, THIS GAS PROCESSING PLANT OPERATOR IN WELL TO ASSIST PT WITH TOILETING NEEDS, NO FURTHER NEEDS AT THIS TIME
--- NOTE | 2021-09-24 01:55 | NUR ---
PT CALLED, ASSISTED WITH BR NEEDS, SBA, BACK TO BED, PT ASKS ABOUT GETTING A MEDICATION, INFORMED RN, NO FURTHER NEEDS IN THE MEANTIME
--- NOTE | 2021-09-24 02:09 | NUR ---
PT REQUESTED PAIN MEDICATION. SHE RATES PAIN AT 10/10 AND SAYS IT IS ALL OVER. ADMINISTERED 2 NORCO PER ORDERS. PTS REQUESTS ZANAFLEX, PT'S BP RUNS LOW AND PRIMARY RN WAS AVOIDING GIVING THEM AT THE SAME TIME. SOLD PT WE NEED TO ALTERNATE THE MUSCLE RELAXER WITH THE PAIN MEDS. SHE IS AGREEABLE AND DENIES FURTHER NEEDS. CALL LIGHT IS CLOSE.
--- NOTE | 2021-09-24 02:43 | NUR ---
cooperative, very drowsy, no resp distress. no c/o adverse reaction to IV abx. coop with assessment
--- NOTE | 2021-09-24 03:35 | NUR ---
PT UP IN ROOM AFTER USING THE TOILET, BACK TO BACK, NO FURTHER NEEDS AT THIS TIME
--- NOTE | 2021-09-24 04:35 | NUR ---
Pt has been awake off andon this shift. On room air, declined to use O2 at HS as she is to be dc'd today she states. lungs clear dim at bases, moist non prod cough present, aware of need for sputum culture. abd wound with old drainage. bruising of R forehead and periorbital area,arms and legs healing. SBA, R portacath patent, no c/o adverser eaction to iv abx, vncomycin through due later today. contineus to use oragel and gi cocktail solution per mouth sores, effective, tolerating liquids well. Turns and repositions self in bed
--- NOTE | 2021-09-24 05:53 | NUR ---
awale, watching tv, c/o muscle spasms, medicated with muscle relaxant. oragel to sores in mouth. tolerating liquids well, Up to br, voided, had large formed bms, did own care, cooperative,
--- NOTE | 2021-09-24 07:45 | NUR ---
REPORT RECEIVED FROM NIGHT RN AND PT. CARE RESUMED. PT. IS DROWSY BUT ORIENTED TO ALL. SBA AMBULATING WITH FWW TO BATHROOM. PT. C/O KNEE PAIN THAT STARTED YESTERDAY. ADMIN. NORCO. PT. REQUESTS MUSCLE RELAXER MED. SEVERAL TIMES AND IS NOT DUE TO BE GIVEN. PORT A CATH IS PATENT AND HAS BRISK BLOOD RETURN. IV ABX INFUSING. LUNGS CLEAR THROUGHOUT AND PT. HAS OCCASIONAL COUGH. DISCUSSED POC, SAFETY AND PAIN MANAGEMENT. LEFT RESTING IN CHAIR WITH CALL LIGHT IN REACH.
--- NOTE | 2021-09-24 10:20 | NUR ---
Spoke with Marzena and she states she is having a lot of knee pain. Xray has been ordered. Pt plans on dc to home today, but is unsure now if she will be able to dc. Let her know to discuss this with Dr. Barrios.
--- NOTE | 2021-09-24 11:23 | NUR ---
ROUNDING ON PT. SHE IS SLEEPING WITH EYES CLOSED. RESPIRATIONS ARE EVEN AND UNLABORED.
--- NOTE | 2021-09-24 12:08 | NUR ---
PT WAS ON PHONE WITH A DR-REQUESTED I RETURN. WILL CHECK BACK
[2021-09-24] MEDS ORDERED: LEVOFLOXACIN750 MG PO (12:37)
[2021-09-24] MEDS ORDERED: DICLOFENAC SOD100 G1 TOP (12:38)
--- NOTE | 2021-09-24 13:00 | NUR ---
Received a call earlier from pts mother and sister, Taisha Lew. Returned call can spoke with both. They are very concerned and pt will dc to mother's home as per Taisha, pt is a extreme hoarder and is house is not livable. Taisha is concerned as mom is unable to care for self and Taisha works, but also cares for her. They are worried about pt over taking meds and falling. They would like to get pt into counseling for hoarding, medication use. This was all discussed thoroughly. My suggestions were to discuss, medication use and having a family member take over her medications. I also suggested they discuss counseling with Marzena, but reminded, she is of sound mind and cannot be made to do anything. I also asked them to consider, pt has stage III Ca, what kind of time do they wish to spend with her. We then discussed they can take over her meds or work with Marzena to prevent falls. I suggested when they come to pick pt up, they ask for pharmacy to explain the discharge meds to both the family and the pt and they ask the pharmacist about dosages and have them answer their questions.
--- NOTE | 2021-09-24 13:10 | NUR ---
PUMP ALARMING, INFUSION AND FLUSH COMPLETE. PORT ASSESSED, WNL. BRISK BLOOD RETURN NOTED. PORT SALINE LOCKED AT THIS TIME, ALCOHOL CAP APPLIED. PT DENIES ADDITIONAL REQUESTS OR COMPLAINTS. CALL LIGTH WITHIN REACH. PTS PRIMARY RN UPDATED.
--- NOTE | 2021-09-24 13:33 | NUR ---
ALL DISCHARGE INSTRUCTIONS REVIEWED WITH PT. AND QUESTIONS ANSWERED. PORT A CATH HEP. LOCKED AND HICKS REMOVED. VITALS STABLE AND PAIN MED. ADMIN.
--- NOTE | 2021-09-24 14:03 | NUR ---
Called and spoke with Karthik Linn. UPdated of my discussion with family and asked if she can speak with them and she states she will call pharmacy.
== END 2021-09-24 15:14 | disposition home or self-care (01) | DRG 178 ==
LOC: ED 08:24 → MS 12:05 → CCU 12:05 → MS 09-22 11:15
PROVIDERS: ADMIT Internal Medicine; ATTEND Internal Medicine
DX: J15.6 Pneumonia due to other Gram-negative bacteria (principal); N30.00 Acute cystitis without hematuria; E27.1 Primary adrenocortical insufficiency; C18.9 Malignant neoplasm of colon, unspecified; D70.1 Agranulocytosis secondary to cancer chemotherapy; D69.59 Other secondary thrombocytopenia; T45.1X5A Adverse effect of antineoplastic and immunosuppressive drugs, initial encounter; Z91.81 History of falling; F41.9 Anxiety disorder, unspecified; M79.7 Fibromyalgia; Z20.822 Contact with and (suspected) exposure to COVID-19; E03.9 Hypothyroidism, unspecified; G89.4 Chronic pain syndrome; B96.20 Unspecified Escherichia coli [E. coli] as the cause of diseases classified elsewhere; B96.89 Other specified bacterial agents as the cause of diseases classified elsewhere; W01.10XA Fall on same level from slipping, tripping and stumbling with subsequent striking against unspecified object, initial encounter; Z90.89 Acquired absence of other organs; Z98.890 Other specified postprocedural states; Z79.899 Other long term (current) drug therapy; Z91.040 Latex allergy status; Z98.84 Bariatric surgery status
CPT/HCPCS: 36415; 70450; 71045; 72040; 73030; 73560; 80048; 80053; 80202; 81001; 83605; 83735; 85025; 87070; 87088; 87205; 96365; 96375; 97116; 97162; 97165; 99285-25; A9270; C9803; J0692; J0696; J1720; J1956; J3370; J7040; J7060; J7121; U0003

== ENCOUNTER 2021-09-27 17:48 | Inpatient (IN) | payer BC, OTHER ==
[~2021-09-27] VITALS: Ht 160 cm; Wt 69.6 kg
[~2021-09-27 17:48] MED LIST changes: +DEXAMETHASONE4 MG PO; +DICLOFENAC SOD100 G1 TOP; +FUROSEMIDE20 MG PO; +LEVOFLOXACIN750 MG PO; +POTASSIUM CITR15 MEQ PO
--- OUTSIDE RECORDS SUMMARY | 2021-09-27 17:50 | XMS ---
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 [facility] MO[facility] TOTAL 7 NOTE: Visits indicate total known visits. ED/UCC VISIT TRACKING (12 MO.) 09/27/2021 17:48 [facility] TYPE: Emergency COMPLAINT: - URINE PROBLEM 09/21/2021 08:24 [facility] TYPE: Emergency COMPLAINT: - GLF 09/13/2021 09:07 [facility] TYPE: Emergency COMPLAINT: - DIFFICULTY BREATHING DIAGNOSES: - Latex allergy status - Cough, unspecified - Other skilled nursing (current) drug therapy - Weakness - Hypokalemia - MCC (current) use of opiate analgesic - Nausea 06/29/2021 20:35 [facility] TYPE: Emergency COMPLAINT: - DIZZINESS, FLU SYMPTOMS 04/07/2021 17:59 [facility] TYPE: Emergency DIAGNOSES: - Unspecified open wound of unspecified finger without damage to nail, initial encounter - wound check 03/23/2021 07:12 [facility] TYPE: Emergency COMPLAINT: - L HAND PAIN DIAGNOSES: - Local infection of the skin and subcutaneous tissue, unspecified - Other skilled nursing (current) drug therapy - Cellulitis of left [...] of kidney and ureter, unspecified - Other skilled nursing (current) drug therapy - Unspecified open wound of left middle finger without damage to nail, initial encounter - Civilian activity done for income or pay - Myalgia, unspecified site - Unspecified injury of left wrist, hand and finger(s), initial encounter - Cellulitis of left finger INPATIENT VISIT TRACKING (12 MO.) 09/21/2021 12:05 [facility] TYPE: Medical Surgical COMPLAINT: - MULTI-LOBAR PNEUMONIA, CYSTITIS NEUTROPENIA DIAGNOSES: - Bariatric surgery status - Fall on same level from slipping, tripping and stumbling with subsequent striking against unspecified object, initial encounter - Malignant neoplasm of colon, unspecified - Adverse effect of antineoplastic and immunosuppressive drugs, initial encounter - Other specified bacterial agents as the cause of diseases classified elsewhere - Fibromyalgia - History of falling - Other specified postprocedural states - Unspecified Escherichia coli [E. coli] as the cause of diseases classified elsewhere - Pneumonia due to other Gram-negative bacteria - Acquired absence of other organs - Agranulocytosis secondary to cancer chemotherapy - Hypothyroidism, unspecified - Contact with and (suspected) exposure to COVID-19 - Anxiety disorder, unspecified - Chronic pain syndrome - Primary adrenocortical insufficiency - Other adjunct faculty for medical terminology (current) drug therapy - Other secondary thrombocytopenia - Latex allergy status - Acute cystitis without hematuria 07/01/2021 12:57 [facility] TYPE: Medical Surgical COMPLAINT: - ANEMIA, SYNCOPE, ILEANA DIAGNOSES: - Gastritis, unspecified, without bleeding - Other fall on same level, initial encounter - Essential (primary) hypertension - Malignant neoplasm of rectosigmoid junction - Chronic or unspecified gastric ulcer with hemorrhage - Unspecified adrenocortical insufficiency - Acute kidney failure, unspecified - Other adjunct faculty for medical terminology (current) drug therapy - Bariatric surgery status [...] - Iron deficiency anemia, unspecified - Other adjunct faculty for medical terminology (current) drug therapy - Hypothyroidism, unspecified - [...] with bleeding - Fibromyalgia 04/07/2021 17:59 [facility] TYPE: Surgery DIAGNOSES: - Unspecified open wound of unspecified finger without damage to nail, initial encounter 03/23/2021 20:16 [facility] TYPE: Surgery DIAGNOSES: - Abscess on third digit L hand - Synovitis and tenosynovitis, unspecified [email or web address]
--- NOTE | 2021-09-28 06:35 | EKG ---
[facility] [address], [place] [address] Signed Normal sinus rhythm Possible Anterolateral infarct (cited on or before 21-APR-2019) Abnormal ECG When compared with ECG of 03-AUG-2021 08:52, No significant change was found Confirmed by PRICE HIGUERA MD ([id number] on 09/28/2021 6:35:21 AM Electronically Signed By: PRICE HIGUERA MD 09/28/21 0635 PATIENT NAME: TERESA CHERRY Electrocardiogram DATE OF : 61 PHYSICIAN: PRICE HIGUERA MD REPORT #: [id number] REPORT IS CONFIDENTIAL AND NOT TO BE RELEASED WITHOUT AUTHORIZATION
[2021-09-28] MEDS ORDERED: LIDOCAINE HCL100 ML MT (09:30)
== END 2021-09-29 01:30 | DRG 871 ==
LOC: ED 17:48 → CCU 23:22
PROVIDERS: ADMIT Internal Medicine; ATTEND Internal Medicine
PROC: 3E033XZ Introduction of Vasopressor into Peripheral Vein, Percutaneous Approach (ICD-10-PCS; principal; 2021-09-27)
PROC: 5A09357 Assistance with Respiratory Ventilation, Less than 24 Consecutive Hours, Continuous Positive Airway Pressure (ICD-10-PCS; 2021-09-27)
PROC: 3E03329 Introduction of Other Anti-infective into Peripheral Vein, Percutaneous Approach (ICD-10-PCS; 2021-09-27)
DX: A41.9 Sepsis, unspecified organism (principal); J18.9 Pneumonia, unspecified organism; N17.9 Acute kidney failure, unspecified; C18.9 Malignant neoplasm of colon, unspecified; N39.0 Urinary tract infection, site not specified; Z51.5 Encounter for palliative care; Z66 Do not resuscitate; E27.40 Unspecified adrenocortical insufficiency; J90 Pleural effusion, not elsewhere classified; I31.3 Pericardial effusion (noninflammatory); E87.2 Acidosis; Z20.822 Contact with and (suspected) exposure to COVID-19; B96.20 Unspecified Escherichia coli [E. coli] as the cause of diseases classified elsewhere; E87.5 Hyperkalemia; I95.9 Hypotension, unspecified; K52.9 Noninfective gastroenteritis and colitis, unspecified; E86.0 Dehydration; R62.7 Adult failure to thrive; R60.1 Generalized edema; M79.7 Fibromyalgia; E03.9 Hypothyroidism, unspecified; Z92.21 Personal history of antineoplastic chemotherapy; Z90.89 Acquired absence of other organs; Z98.890 Other specified postprocedural states; Z98.84 Bariatric surgery status; Z91.040 Latex allergy status; Z79.899 Other long term (current) drug therapy
CPT/HCPCS: 36415; 51702; 51798; 70450; 71045; 74176; 80048; 80053; 81001; 82570; 82803; 83605; 83690; 83735; 83880; 83930; 83935; 84100; 84300; 85025; 87040; 93005; 93010; 94660; 99285-25; A9270; J0456; J0610; J0696; J1720; J2270; J2405; J7030; J7060; J7121; U0003